=== PATIENT | female | born 1935 | race Caucasian/White ===

== ENCOUNTER 2017-06-16 10:39 | Inpatient (IN) ==
--- NOTE | 2017-06-16 11:10 | Emergency Department Note ---
Disposition Clinical Impression: SBO (small bowel obstruction), Renal insufficiency, mild Leukocytosis Qualifiers: Leukocytosis type: unspecified Qualified Code(s): D72.829 - Elevated white blood cell count, unspecified Disposition: Admitted As Inpatient Condition: Fair General Adult HPI - General Chief complaint: ED Weakness Stated complaint: weakness Time Seen by Provider: 06/16/17 10:42 Source: EMS Nursing Notes Reviewed: Yes Vital Signs Reviewed: Yes - History of Present Illness HPI Narrative: 82-year-old female presents to the emergency department as a bounce back from the emergency department yesterday. She received a full workup yesterday included a CT scan of the abdomen and pelvis which did not reveal any acute abnormality. The patient was discharged home yesterday. Patient states she came back because she started developing new symptoms of weakness. Patient states that she was unable to even get out of the bed today. She reports some lightheadedness. She had an episode of nausea. Patient states that she still has abdominal pain across her abdomen, but this has resolved some. Pain Scale: 0 - Related Data Home Medications Medication Instructions Recorded Confirmed Albuterol Sulfate [Albuterol 2 puff PO Q4H PRN 03/10/15 06/16/17 Inhaler] Atorvastatin Calcium [Lipitor] 20 mg PO HS 07/12/16 06/16/17 Calcium Carbonate/Vitamin D3 1 each PO BID 07/12/16 06/16/17 [Calcium 500 + Vit D Caplet] Levothyroxine Sodium [Levoxyl] 150 mcg PO DAILY 06/16/17 06/16/17 Losartan Potassium [Cozaar] 50 mg PO DAILY 06/16/17 06/16/17 Previous Rx's Medication Instructions Recorded Diltiazem CD (24hr) [Cardizem CD] 360 mg PO DAILY cap.er.24h 04/11/15 Omeprazole [PriLOSEC] 40 mg PO DAILY #30 capsule. 04/11/15 Rivaroxaban [Xarelto] 20 mg PO DAILY #30 tablet 04/11/15 Sucralfate [Carafate] 1 gm PO QIDAC udc 07/12/15 Docusate [Colace] 100 mg PO BID PRN #30 capsule 11/21/15 Potassium Chloride 20 meq PO BID tab.er.prt 11/21/15 Metoprolol [Lopressor] 100 mg PO BID tablet 07/23/16 Allergies Allergy/AdvReac Type Severity Reaction Status Date / Time hydrochlorothiazide Allergy Rash Verified 06/16/17 10:47 All systems ED: reviewed and negative except as stated. Review of Systems: As Per HPI Constitutional: Denies: fever Cardiovascular: Denies: chest pain Gastrointestinal: Reports: abdominal pain, nausea Genitourinary: Denies: urgency, dysuria, frequency Musculoskeletal: Denies: back pain Integumentary: Denies: rash Neurological: Reports: weakness Past Medical History - Past Medical History Medical history: Reports: arthritis, atrial fibrillation, COPD, hyperlipidemia, hypertension, renal disease, thyroid disease, other Surgical history: Reports: knee replacement Psychiatric history: Reports: no psych history C[employer] DESSERT history: Reports: no C[employer] DESSERT history - Social History Smoking Status: Former smoker Smokeless Tobacco Status: No Alcohol use: Reports: none Drug use: Reports: none Physical Exam General: 82-year-old female who does not appear to be in any distress. Head: autraumatic, EOMI, no conjuncitval pallor, no scleral icterus, Mouth: oral mucous membranes moist Neck: neck soft, trachea midline Chest:: Equal chest wall rise Lungs: Normal lungs sounds bilaterally, no wheezes, no respiratory distress Heart: normal heart sounds, normal rate and rhythm, Abdomen: soft, mild tenderness to palpation of the epigastrium, no rigidity, no guarding, no rebdound tenderness Lower Extremities: no pedal edema, calves non-tender Integumentary: Skin warm, dry, and intact Neuro: Alert and oriented to person, time, place. No focal neurologic deficits. Psych: normal affect, normal mood - General General appearance: alert Course Vital Signs Temperature 99.0 F 06/16/17 10:42 Pulse Rate 62 06/16/17 10:42 Respiratory Rate 16 06/16/17 10:42 Blood Pressure 133/71 06/16/17 10:42 O2 Sat by Pulse Oximetry 98 06/16/17 10:42 Temperature 99.0 F 06/16/17 10:42 Pulse Rate 62 06/16/17 10:42 Respiratory Rate 16 06/16/17 14:12 Blood Pressure 146/70 06/16/17 14:12 O2 Sat by Pulse Oximetry 98 06/16/17 10:42 Oxygen Delivery Oxygen Delivery Room Air Medical Decision Making - MDM Narrative Medical decision making narrative: 82-year-old female with a history of duodenal perforation with persistent abdominal pain presents to the emergency department after a negative workup yesterday. CBC was obtained and revealed a new leukocytosis of 19.2. He was also evidence of acute renal insufficiency as patient's creatinine was 1.45 here and this is slightly worse than it has been in the past. This prompted us obtaining a CT scan of the abdomen and pelvis as we wanted to be certain that there was not an intra-abdominal pathology as we cannot discern a reason for this patient's new leukocytosis and persistent abdominal pain. CT scan of abdomen and pelvis revealed a dilated loop of small bowel in the epigastrium with suspected wall thickening and does appear to be at the site of a small bowel anastomosis. There is recommendation to consider small bowel follow- through to better characterize anastomosis in any degree of obstruction. At this time, I have discussed this case with Dr. Fulton, the general surgeon. She stated that she would see the patient. I admitted this patient to the hospitalist. He agreed to accept the admission. An NG tube was placed and the patient's diagnosis was discussed as well as the plan for admission. Patient agreed with the plan. Patient was given fluids here in the emergency Department as well as Zofran and she is complaining of nausea. Patient declined analgesia here as she stated that her pain was not bad enough. Abdomen/Pelvis CT 06/16/17 12:18 IMPRESSION: There is a dilated loop of small bowel in the epigastrium with suspected wall thickening. This appears to be at the site of a small bowel anastomosis. This may indicate the presence of chronic partial obstruction, as there was a dilated loop of bowel in this area on the prior study although not as prominent. Consider small-bowel follow-through 2 better characterize the anastomosis and any degree of obstruction Colonic diverticulosis D/ / Joaquim Trevino MD / Joaquim Trevino MD Interpreting Provider: Joaquim Trevino MD Chest X-Ray 06/16/17 12:27 IMPRESSION: No evidence of pneumonia. D/ / Hakeem Hsu MD / Hakeem Hsu MD Interpreting Provider: Hakeem Hsu MD Vital Signs Temperature 99.0 F 06/16/17 10:42 Pulse Rate 62 06/16/17 10:42 Respiratory Rate 16 06/16/17 10:42 Blood Pressure 133/71 06/16/17 10:42 O2 Sat by Pulse Oximetry 98 06/16/17 10:42 Temperature 99.0 F 06/16/17 10:42 Pulse Rate 62 06/16/17 10:42 Respiratory Rate 16 06/16/17 14:12 Blood Pressure 146/70 06/16/17 14:12 O2 Sat by Pulse Oximetry 98 06/16/17 10:42 Oxygen Delivery Oxygen Delivery Room Air - Medical Records Medical records reviewed: Yes I reviewed the patient's medical records. - Lab Data Lab results reviewed: Yes I reviewed the patient's lab results. Result diagrams: 06/16/17 11:16 06/16/17 11:16 Lab Results 06/16/17 06/16/17 06/16/17 Range/Units 11:16 11:16 11:16 WBC 19.2 H D (4.3-11.1) K/mcL RBC 3.86 (3.82-4.97) M/mcL Hgb 11.3 L (11.5-15.4) g/dL Hct 34.3 L (35.3-44.9) % MCV 88.9 (83.0-100.0) fL MCH 29.3 (28.0-33.3) pg MCHC 32.9 (31.6-35.5) g/dL RDW 15.6 H (11.5-14.5) % Plt Count 261 (140-400) K/mcL MPV 12.0 (9.4-12.4) fL Immature Gran % 0.6 (0-4) % Seg Neutrophils % 86.7 % Lymphocytes % 5.4 % Monocytes % 7.2 % Eosinophils % 0.0 % Basophils % 0.1 % Neutrophils # 16.7 H (1.6-8.9) K/mcL Lymphocytes # 1.0 (0.6-4.6) K/mcL Monocytes # 1.4 H (0.0-1.3) K/mcL Eosinophils # 0.0 (0.0-0.6) K/mcL Basophils # 0.0 (0.0-0.2) K/mcL Immature Plt Fraction 7.6 H (1.1-6.1) % Sodium 137 (136-145) mEq/L Potassium 4.4 (3.5-4.5) mEq/L Chloride 102 (98-109) mEq/L Carbon Dioxide 26 (19-29) mEq/L BUN 31 H (7-20) mg/dL Creatinine 1.45 H (0.57-1.11) mg/dL Est GFR ( Amer) 42 L (> 60) Est GFR (Non-Af Amer) 35 L (> 60) BUN/Creatinine Ratio 21 (6-26) Glucose 131 H (70-99) mg/dL Calculated Osmolality 292 (280-300) Lactic Acid 2.7 H (0.5-2.2) mmol/L Calcium 9.4 (8.6-10.8) mg/dL Total Bilirubin 1.0 D (0.2-1.2) mg/dL AST 14 (5-34) Units/L ALT < 6 (0-55) Units/L Alkaline Phosphatase 90 (38-126) Units/L Troponin I (0-0.03) ng/mL Serum Total Protein 5.8 L (6.0-8.3) g/dL Albumin 3.0 L (3.5-5.0) g/dL Globulin 2.8 (2.4-3.5) g/dL Albumin/Globulin Ratio 1.1 (1.1-2.2) Urine Color (Yellow) Urine Clarity (Clear) Urine pH (5.0-8.0) pH Units Ur Specific [place] (1.010-1.025) Urine Protein (Neg-Trace) mg/dL Urine Glucose (UA) (Normal) mg/dL Urine Ketones (Negative) mg/dL Urine Blood (Negative) Urine Nitrite (Negative) Urine Bilirubin (Negative) Urine Urobilinogen (Normal) mg/dL Ur Leukocyte Esterase (Negative) Urine Microscopic RBC (0-3) per hpf Urine Microscopic WBC (0-3) per hpf Ur Squamous Epith Cells (None-Few) per lpf Urine Bacteria (None-Few) per hpf Hyaline Casts (None-Few) per lpf Ur Culture Indicated? (NO) 06/16/17 06/16/17 Range/Units 11:16 11:40 WBC (4.3-11.1) K/mcL RBC (3.82-4.97) M/mcL Hgb (11.5-15.4) g/dL Hct (35.3-44.9) % MCV (83.0-100.0) fL MCH (28.0-33.3) pg MCHC (31.6-35.5) g/dL RDW (11.5-14.5) % Plt Count (140-400) K/mcL MPV (9.4-12.4) fL Immature Gran % (0-4) % Seg Neutrophils % % Lymphocytes % % Monocytes % % Eosinophils % % Basophils % % Neutrophils # (1.6-8.9) K/mcL Lymphocytes # (0.6-4.6) K/mcL Monocytes # (0.0-1.3) K/mcL Eosinophils # (0.0-0.6) K/mcL Basophils # (0.0-0.2) K/mcL Immature Plt Fraction (1.1-6.1) % Sodium (136-145) mEq/L Potassium (3.5-4.5) mEq/L Chloride (98-109) mEq/L Carbon Dioxide (19-29) mEq/L BUN (7-20) mg/dL Creatinine (0.57-1.11) mg/dL Est GFR ( Amer) (> 60) Est GFR (Non-Af Amer) (> 60) BUN/Creatinine Ratio (6-26) Glucose (70-99) mg/dL Calculated Osmolality (280-300) Lactic Acid (0.5-2.2) mmol/L Calcium (8.6-10.8) mg/dL Total Bilirubin (0.2-1.2) mg/dL AST (5-34) Units/L ALT (0-55) Units/L Alkaline Phosphatase (38-126) Units/L Troponin I 0.03 (0-0.03) ng/mL Serum Total Protein (6.0-8.3) g/dL Albumin (3.5-5.0) g/dL Globulin (2.4-3.5) g/dL Albumin/Globulin Ratio (1.1-2.2) Urine Color Yellow (Yellow) Urine Clarity Clear (Clear) Urine pH 6.5 (5.0-8.0) pH Units Ur Specific [place] 1.023 (1.010-1.025) Urine Protein Trace (Neg-Trace) mg/dL Urine Glucose (UA) Normal (Normal) mg/dL Urine Ketones Negative (Negative) mg/dL Urine Blood Negative (Negative) Urine Nitrite Negative (Negative) Urine Bilirubin Negative (Negative) Urine Urobilinogen Normal (Normal) mg/dL Ur Leukocyte Esterase Trace H (Negative) Urine Microscopic RBC 5-15 H (0-3) per hpf Urine Microscopic WBC 3-5 H (0-3) per hpf Ur Squamous Epith Cells Many H (None-Few) per lpf Urine Bacteria None Seen (None-Few) per hpf Hyaline Casts None Seen (None-Few) per lpf Ur Culture Indicated? YES A (NO) - Radiology Data Radiology results reviewed: Yes I reviewed the patient's radiology results. - EKG Data EKG #1 EKG attestation: Yes I reviewed and interpreted this EKG. EKG results narrative: 11:17 Ventricular rate 70 beats per minute, IL interval 159 ms, QRS duration 94 segs, QT 396% segs, QTC 470 ms, normal axis. Sinus rhythm with a ventricular rate of 70 beats per minute. There is no evidence of any ischemic ST changes noted on this electrocardiogram. This electrocardiogram was compared to one performed on June 15, 2017.
--- NOTE | 2017-06-16 11:24 | Emergency Department Note ---
START Narrative - START START: I examined this patient and my medical decision-making was reviewed with the MASTIC SPRAYER/PA/Advanced Practice Nurse/Resident Physician. I agree with the documented findings, disposition and treatment plan as described except to the extent set forth below. ED attending: Patient's emergency medicine resident Dr. Master Juarez. Please see copy of this note for H&P evaluation and management and ED disposition. We both had independent [id number] time in contact with this patient. Briefly: A 2-year-old female by EMS for "weakness". Patient was worked up last night in the ED emergency department and discharged home with URI viral likely. Patient is normally ambulatory said "too weak to get out of bed this morning". Patient is awake and alert fatigued but not somnolent. I said her abdominal pain is actually improved. Skull low-grade fever of 99. Vital signs are essentially within normal limits. Patient will get IV rehydration screening labs and disposition. Disposition pending
[2017-06-16 11:26] LABS: Basophils % 0.1 %; Hematocrit 34.3 % (35.3-44.9); Hemoglobin 11.3 g/dL (11.5-15.4); Immature Granulocytes % 0.6 % (0-4); Immature Platelets 7.6 % (1.1-6.1); Lymphocytes % 5.4 %; Mean Corpuscular HGB Conc 32.9 g/dL (31.6-35.5); Mean Corpuscular Hemoglobin 29.3 pg (28.0-33.3); Mean Corpuscular Volume 88.9 fL (83.0-100.0); Monocytes # 1.4 K/mcL (0.0-1.3); Monocytes % 7.2 %; Platelet Count 261 K/mcL (140-400); Red Blood Count 3.86 M/mcL (3.82-4.97); Red Cell Distribution Width 15.6 % (11.5-14.5); Segmented Neutrophils % 86.7 %
[2017-06-16 11:27] LABS: Neutrophils # 16.7 K/mcL (1.6-8.9)
[2017-06-16 11:40] LABS: Albumin/Globulin Ratio 1.1 (1.1-2.2); Alkaline Phosphatase 90 Units/L (38-126); Aspartate Amino Transferase 14 Units/L (5-34); BUN/Creatinine Ratio 21 (6-26); Blood Urea Nitrogen 31 mg/dL (7-20); Calcium 9.4 mg/dL (8.6-10.8); Carbon Dioxide 26 mEq/L (19-29); Chloride 102 mEq/L (98-109); Globulin 2.8 g/dL (2.4-3.5); Glucose 131 mg/dL (70-99); Osmolality,Calculated 292 (280-300); Potassium 4.4 mEq/L (3.5-4.5); Sodium 137 mEq/L (136-145); Total Protein 5.8 g/dL (6.0-8.3); eGFR For African Americans 42 (> 60); eGFR For Non-African Americans 35 (> 60)
[2017-06-16 11:41] LABS: Alanine Aminotransferase < 6 Units/L (0-55)
[2017-06-16 11:51] LABS: Bilirubin,Urine Negative (Negative); Blood,Urine Negative (Negative); Clarity,Urine Clear (Clear); Color,Urine Yellow (Yellow); Glucose,Urine (UA) Normal (Normal); Ketones,Urine Negative (Negative); Leukocyte Esterase,Urine Trace (Negative); Nitrite,Urine Negative (Negative); PH,Urine 6.5 pH Units (5.0-8.0); Protein,Urine Trace mg/dL (Neg-Trace); Specific Gravity,Urine 1.023 (1.010-1.025); Urobilinogen,Urine Normal (Normal)
[2017-06-16 11:53] LABS: Bacteria,Urine None Seen per hpf (None-Few); Hyaline Casts,Urine None Seen per lpf (None-Few); Squamous Epithelial Cell,Urine Many per lpf (None-Few)
[2017-06-16] MEDS ORDERED: 0.9 % Sodium Chloride 1,000 ML IVC ONE (12:18)
[2017-06-16] MEDS ORDERED: Ondansetron 4 MG/2 ML VIAL IVP ONE (12:19)
[2017-06-16] MEDS ORDERED: *HR* Morphine 2 MG/ML SYRINGE IVP PRN (15:34)
[2017-06-16] MEDS ORDERED: Naloxone 0.4 MG/ML INJ IVP PRN (15:34)
[2017-06-16] MEDS ORDERED: Ondansetron 4 MG/2 ML VIAL IVP PRN (15:34)
--- NOTE | 2017-06-16 16:15 | General Surgery Consult Note ---
<Karishma Subramanian - Last Filed: 06/16/17 16:11> Date of Encounter: 06/16/17 Time of Encounter: 16:10 Assessment and Plan (1) Partial small bowel obstruction Current Visit: Yes Status: Acute Continue with conservative management at this time including: Bowel rest NG tube to low intermittent wall suction IV fluids Serial abdominal exams Supportive care and pain control Incentives from every 1 hour while awake We will continue to follow and assess progress Holds Xarelto for now No urgent/emergent surgical intervention indicated at this time Repeat a.m. labs (2) COPD (chronic obstructive pulmonary disease) Current Visit: No Status: Chronic No acute exacerbation noted Incentive spirometer every 1 hour while awake Management per medicine service Qualifiers: COPD type: unspecified COPD Qualified Code(s): J44.9 - Chronic obstructive pulmonary disease, unspecified (3) Atrial fibrillation Current Visit: No Status: Chronic Rate is controlled at this time Holds Xarelto at this time in case the patient would need surgical intervention Qualifiers: Atrial fibrillation type: chronic Qualified Code(s): I48.2 - Chronic atrial fibrillation (4) Acute kidney injury Current Visit: No Status: Acute Cr- 1.3>1.45 IV fluids Avoid nephrotoxic medications Management per medicine service (5) Hypothyroid Current Visit: No Status: Chronic May transition to IV levothyroxine while patient nothing by mouth Management per medicine service Qualifiers: Hypothyroidism type: acquired Qualified Code(s): E03.9 - Hypothyroidism, unspecified (6) Physical deconditioning Current Visit: No Status: Acute Consider PT and OT consults in the next 24 hours (8) DVT prophylaxis Current Visit: No Status: Acute INR is 2.8 Hold Xarelto for now History of Present Illness Consult date: 06/16/17 Reason for consult: other (PSBO) Requesting physician: Master Mathew History of present illness: Ms. Ernandez is a very pleasant 82-year-old female who presented to the hospital with complaints of abdominal discomfort. She states that she initially presented to the emergency department yesterday with complaints of severe abdominal pain. She states that this pain started at 2 PM yesterday and was constant. She just gripes it as a sharp and stabbing pain. She received a workup in the emergency department was did not reveal any acute processes and she was subsequent discharged to home. She reported back to the emergency department today with continued discomfort across the lower abdomen. She states that the pain is better today. She reports that the main reason she recommended came back to the emergency department was due to weakness and inability to get out of bed this morning. She does report nausea and vomiting yesterday but denies any nausea or vomiting today. Denies any hematemesis or coffee-ground emesis She denies any fevers or chills. She admits to minimal bloating which has improved. She denies passing any flatus since yesterday at 4 PM. Her last bowel movement was at 4 PM yesterday. She denies any melena or hematochezia. She typically has a bowel movement 2-3 times per day. She denies any recent diarrhea or constipation. She denies any difficulty with urination. She denies any shortness of breath or chest pain. She had had a CAT scan evaluation which shows concerns for a partial small bowel obstruction. We have been asked to see and evaluate the patient for recommendations. Past Med Surg Social Fam HX - Past Medical History Source: patient, old records reviewed Medical history: arthritis, atrial fibrillation, COPD, hyperlipidemia, hypertension, renal disease, thyroid disease, other (Venous insufficiency, osteoarthritis, osteoporosis, history of SMA stenosis, history of perforated duodenal ulcer, obesity) Psychiatric history: no psych history - Past Surgical History Surgical History: knee replacement (Bilateral), other (Status post exploratory laparotomy with small bowel resection and appendectomy) - Social History Smoking Status: Former smoker Smokeless Tobacco Status: No Alcohol use: none Drug use: none Occupational status: disabled Current living situation: With Family - Family History Father History Unknown: Yes Adopted: No Family Member Ethnicity: Non- Living Status: Cause of : emphysema Hx Family Cardiac Disorders: No Hx Family Respiratory Disorders: Yes (emphysema) Hx Family Cancer: No Hx Family GI Disorders: No Hx Family Endocrine Disorder: No Hx Family Neuromuscular Disorders: No Hx Family Neurologic Disorders: No Hx Family HEENT Disorders: No Hx Family Autoimmune Disorders: No Mother History Unknown: Yes Adopted: No Living Status: Hx Family Cardiac Disorders: Yes Hx Family Reproductive Disorders: Yes (rheumatoid arthritis) Medications and Allergies Albuterol Sulfate [Albuterol Inhaler] 2 puff PO Q4H PRN 03/10/15 [History] Diltiazem CD (24hr) [Cardizem CD] 360 mg PO DAILY cap.er.24h 04/11/15 [Rx] Omeprazole [PriLOSEC] 40 mg PO DAILY #30 capsule. 04/11/15 [Rx] Rivaroxaban [Xarelto] 20 mg PO DAILY #30 tablet 04/11/15 [Rx] Sucralfate [Carafate] 1 gm PO QIDAC udc 07/12/15 [Rx] Docusate [Colace] 100 mg PO BID PRN #30 capsule 11/21/15 [Rx] Potassium Chloride 20 meq PO BID tab.er.prt 11/21/15 [Rx] Atorvastatin Calcium [Lipitor] 20 mg PO HS 07/12/16 [History] Calcium Carbonate/Vitamin D3 [Calcium 500 + Vit D Caplet] 1 each PO BID [History] Metoprolol [Lopressor] 100 mg PO BID tablet 07/23/16 [Rx] Levothyroxine Sodium [Levoxyl] 150 mcg PO DAILY 06/16/17 [History] Losartan Potassium [Cozaar] 50 mg PO DAILY 06/16/17 [History] 3 Allergy/AdvReac Type Severity Reaction Status Date / Time hydrochlorothiazide Allergy Rash Verified 06/16/17 10:47 Review of Systems All systems PM: reviewed and no additional remarkable complaints except as stated (in the HPI) All systems PM: A 10-system review of systems was performed and is negative for pertinent findings except as documented above in the HPI. General Surgery Exam Initial Vital Signs Temp Pulse Resp BP Pulse Ox 99.0 F 62 16 133/71 98 06/16/17 10:42 06/16/17 10:42 06/16/17 10:42 06/16/17 10:42 06/16/17 10:42 - General physical appearance well developed, well nourished, no distress, no pain, chronically ill, obese - Eyes normal ocular movement - ENT normal mucosa, atraumatic, normocephalic - Neck trachea midline - Respiratory normal respiratory effort wheezing: bilateral (expiratory) - Cardiovascular Cardiovascular exam: Present: RRR, 15, 16 - Abdomen Abdomen general surgery: Present: bowel sounds present, soft, tender, wound (NG tube clamped at this time (place to LIWS)) Abdominal Tenderness: Present: suprapubic Hernia: Present: incarcerated, incisional - Integumentary Integumentary general surgery: Present: warm and dry - Neurologic Present: CN 2-12 grossly intact - Musculoskeletal Present: other (moderate deconditioining) - Psychiatric Psychiatric general surgery: Present: A&Ox3 Exam Initial Vital Signs Temp Pulse Resp BP Pulse Ox 99.0 F 62 16 133/71 98 06/16/17 10:42 06/16/17 10:42 06/16/17 10:42 06/16/17 10:42 06/16/17 10:42 Results - Labs 06/16/17 11:16 06/16/17 11:16 Abnormal lab results WBC 19.2 K/mcL (4.3-11.1) H D 06/16/17 11:16 Hgb 11.3 g/dL (11.5-15.4) L 06/16/17 11:16 Hct 34.3 % (35.3-44.9) L 06/16/17 11:16 RDW 15.6 % (11.5-14.5) H 06/16/17 11:16 Neutrophils # 16.7 K/mcL (1.6-8.9) H 06/16/17 11:16 Monocytes # 1.4 K/mcL (0.0-1.3) H 06/16/17 11:16 Immature Plt Fraction 7.6 % (1.1-6.1) H 06/16/17 11:16 BUN 31 mg/dL (7-20) H 06/16/17 11:16 Creatinine 1.45 mg/dL (0.57-1.11) H 06/16/17 11:16 Est GFR ( Amer) 42 (> 60) L 06/16/17 11:16 Est GFR (Non-Af Amer) 35 (> 60) L 06/16/17 11:16 Glucose 131 mg/dL (70-99) H 06/16/17 11:16 Lactic Acid 2.7 mmol/L (0.5-2.2) H 06/16/17 11:16 Serum Total Protein 5.8 g/dL (6.0-8.3) L 06/16/17 11:16 Albumin 3.0 g/dL (3.5-5.0) L 06/16/17 11:16 Ur Leukocyte Esterase Trace (Negative) H 06/16/17 11:40 Urine Microscopic RBC 5-15 per hpf (0-3) H 06/16/17 11:40 Urine Microscopic WBC 3-5 per hpf (0-3) H 06/16/17 11:40 Ur Squamous Epith Cells Many per lpf (None-Few) H 06/16/17 11:40 Ur Culture Indicated? YES (NO) A 06/16/17 11:40 All other labs normal. - Imaging CT scan - abdomen: report reviewed CT scan - pelvis: report reviewed Additional studies: Abdomen/Pelvis CT 06/16/17 12:18 IMPRESSION: There is a dilated loop of small bowel in the epigastrium with suspected wall thickening. This appears to be at the site of a small bowel anastomosis. This may indicate the presence of chronic partial obstruction, as there was a dilated loop of bowel in this area on the prior study although not as prominent. Consider small-bowel follow-through 2 better characterize the anastomosis and any degree of obstruction Colonic diverticulosis D/ / Joaquim Trevino MD / Joaquim Trevino MD Interpreting Provider: Joaquim Trevino MD Chest X-Ray 06/16/17 12:27 IMPRESSION: No evidence of pneumonia. D/ / Hakeem Hsu MD / Hakeem Hsu MD Interpreting Provider: Hakeem Hsu MD Consult Discharge Plan - Plan Referrals: Holley Alexander DO [Primary Care Provider] - - Attending Attestation For this encounter, I have reviewed the NURSE NAVIGATOR or PA documentation, treatment plan, and medical decision making; and I have had face to face time with this patient. <Jennifer Olivo - Last Filed: 06/17/17 11:49> Date of Encounter: 06/16/17 Assessment and Plan (1) Small bowel obstruction due to postoperative adhesions Current Visit: Yes Status: Acute patient appears to have sbo due to surgical adhesions potentially at surgical anastomosis. CT scan is difficult to interpret continue conservative measures currently npo, ngt to LIWS prn pain control hope to resolve sbo conservatively and once passing flatus can obtain SBFT with gastrograffin to better evaluate small bowel and area of concern at anastomosis serial abodominal exams OOB to chair BID (2) Leukocytosis Current Visit: Yes Status: Acute Qualifiers: Leukocytosis type: unspecified Qualified Code(s): D72.829 - Elevated white blood cell count, unspecified (3) Abdominal pain Current Visit: No Status: Acute Qualifiers: Abdominal location: generalized Qualified Code(s): R10.84 - Generalized abdominal pain (4) DVT prophylaxis Current Visit: No Status: Acute Past Med Surg Social Fam HX - Past Surgical History Surgical History: other Review of Systems All systems PM: reviewed and no additional remarkable complaints except as stated All systems PM: A 10-system review of systems was performed and is negative for pertinent findings except as documented above in the HPI. General Surgery Exam Initial Vital Signs Temp Pulse Resp BP Pulse Ox 99.0 F 62 16 133/71 98 06/16/17 10:42 06/16/17 10:42 06/16/17 10:42 06/16/17 10:42 06/16/17 10:42 - General physical appearance well developed, well nourished, no distress, obese - Eyes PERRL, normal ocular movement - ENT normal mucosa, normocephalic - Neck trachea midline - Respiratory normal expansion, clear to auscultation - Cardiovascular Cardiovascular exam: Present: RRR - Abdomen Abdomen general surgery: Present: bowel sounds present, soft, tender Hernia: Present: incisional - Integumentary Integumentary general surgery: Present: warm and dry - Neurologic Present: CN 2-12 grossly intact - Musculoskeletal Present: other - Psychiatric Psychiatric general surgery: Present: A&Ox3 Exam Initial Vital Signs Temp Pulse Resp BP Pulse Ox 99.0 F 62 16 133/71 98 06/16/17 10:42 06/16/17 10:42 06/16/17 10:42 06/16/17 10:42 06/16/17 10:42 Results - Labs 06/17/17 04:57 06/17/17 04:57 Abnormal lab results WBC 16.2 K/mcL (4.3-11.1) H 06/17/17 04:57 RBC 3.41 M/mcL (3.82-4.97) L 06/17/17 04:57 Hgb 9.9 g/dL (11.5-15.4) L 06/17/17 04:57 Hct 30.8 % (35.3-44.9) L 06/17/17 04:57 RDW 15.9 % (11.5-14.5) H 06/17/17 04:57 Neutrophils # 12.8 K/mcL (1.6-8.9) H 06/17/17 04:57 Immature Plt Fraction 7.6 % (1.1-6.1) H 06/16/17 11:16 PT 16.5 Seconds (9.4-12.1) H 06/17/17 04:57 BUN 32 mg/dL (7-20) H 06/17/17 04:57 Est GFR (Non-Af Amer) 50 (> 60) L 06/17/17 04:57 BUN/Creatinine Ratio 30 (6-26) H 06/17/17 04:57 Lactic Acid 2.7 mmol/L (0.5-2.2) H 06/16/17 11:16 Calcium 8.4 mg/dL (8.6-10.8) L 06/17/17 04:57 Serum Total Protein 5.8 g/dL (6.0-8.3) L 06/16/17 11:16 Albumin 3.0 g/dL (3.5-5.0) L 06/16/17 11:16 Ur Leukocyte Esterase Trace (Negative) H 06/16/17 11:40 Urine Microscopic RBC 5-15 per hpf (0-3) H 06/16/17 11:40 Urine Microscopic WBC 3-5 per hpf (0-3) H 06/16/17 11:40 Ur Squamous Epith Cells Many per lpf (None-Few) H 06/16/17 11:40 Ur Culture Indicated? YES (NO) A 06/16/17 11:40 Diabetes panel 06/17/17 Range/Units 04:57 Sodium 139 (136-145) mEq/L Potassium 4.0 (3.5-4.5) mEq/L Chloride 106 (98-109) mEq/L Carbon Dioxide 26 (19-29) mEq/L BUN 32 H (7-20) mg/dL Creatinine 1.05 (0.57-1.11) mg/dL Glucose 74 (70-99) mg/dL Calcium 8.4 L (8.6-10.8) mg/dL Calcium panel 06/17/17 06/17/17 Range/Units 04:57 04:57 Calcium 8.4 L (8.6-10.8) mg/dL Phosphorus 2.8 (2.3-4.7) mg/dL Pituitary panel 06/17/17 Range/Units 04:57 Sodium 139 (136-145) mEq/L Potassium 4.0 (3.5-4.5) mEq/L Chloride 106 (98-109) mEq/L Carbon Dioxide 26 (19-29) mEq/L BUN 32 H (7-20) mg/dL Creatinine 1.05 (0.57-1.11) mg/dL Glucose 74 (70-99) mg/dL Calcium 8.4 L (8.6-10.8) mg/dL Adrenal panel 06/17/17 Range/Units 04:57 Sodium 139 (136-145) mEq/L Potassium 4.0 (3.5-4.5) mEq/L Chloride 106 (98-109) mEq/L Carbon Dioxide 26 (19-29) mEq/L BUN 32 H (7-20) mg/dL Creatinine 1.05 (0.57-1.11) mg/dL Glucose 74 (70-99) mg/dL Calcium 8.4 L (8.6-10.8) mg/dL All other labs normal. - Imaging CT scan - abdomen: report reviewed, image reviewed CT scan - pelvis: report reviewed, image reviewed - Attending Attestation I have personally performed a face to face evaluation on this patient. I have reviewed and agree with the care plan. History and Exam by me shows:
[2017-06-16] MEDS: 0.9 % Sodium Chloride 1,000 ML IVC SCH (16:39)
--- NOTE | 2017-06-16 18:05 | Internal Med History&Physical ---
Date of Encounter: 06/16/17 Time of Encounter: 17:59 Assessment and Plan (1) Partial small bowel obstruction Current visit: Yes Status: Acute 1 patient has been experiencing diffuse abdominal pain nausea vomiting CT of abdomen indicative of partial small bowel obstruction. surgery has been consulted continue with NPO state NG has been placed we will continue . we will hold Xarelto for possible surgical intervention (2) Hypertension Current visit: No Status: Chronic 1 presently controlled we will continue with losartan Qualifiers: Hypertension type: essential hypertension Qualified Code(s): I10 - Essential (primary) hypertension (3) COPD (chronic obstructive pulmonary disease) Current visit: No Status: Chronic Presently controlled we will continue with bronchodilators as well as oxygen as needed Qualifiers: COPD type: unspecified COPD Qualified Code(s): J44.9 - Chronic obstructive pulmonary disease, unspecified (4) Atrial fibrillation Current visit: No Status: Chronic 1 presently controlled we will continue with cardiac senna as well as beta lina. We will hold Xarelto for now for anticipated surgical procedure. Qualifiers: Atrial fibrillation type: chronic Qualified Code(s): I48.2 - Chronic atrial fibrillation (5) Hypothyroid Current visit: No Status: Chronic 1 continue with Synthroid Qualifiers: Hypothyroidism type: acquired Qualified Code(s): E03.9 - Hypothyroidism, unspecified (6) DVT prophylaxis Current visit: No Status: Acute 1 patient is on Xarelto - SCD Internal Medicine - H&P: HPI Chief complaint: abd pain, weakness Admitted From: Emergency Dept Plans for Post Hospital Care: Home History of present illness: Ms. Ernandez is a 82 year old female past medical history of atrial fibrillation she is on Zarontin and GERD hypothyroid hypertension and COPD she is non-oxygen dependent. According to the patient she presented yesterday to the emergency department after experiencing severe abdominal pain. She states the pain started at approximately 2 PM yesterday and is constant stabbing and sharp. There were no aggravating or relieving factors. She denies any fevers chills, she did have some nausea and vomiting. She denies any hematemesis or coffee- ground emesis. She did have 3 loose stools however no melena or hematochezia. She received a workup in the emergency department including a CT scan of her abdomen and pelvis which did not reveal any acute abnormality she was diagnosed with viral illness. This a.m. patient was unable to get out of bed she was lightheaded and weak as well as experiencing some nausea and abdominal pain. She returned to the ED for evaluation. CAT scan was completed which shows concerns for partial small bowel obstruction. Surgery has been consulted and she has been admitted for further workup and evaluation. Presently the patient does have an NG in place she denies any nausea or abdominal pain at this time she is hemodynamically stable. Denies any chest pain or shortness of breath. Past Med Surg Social Fam HX - Past Medical History Medical history: arthritis, atrial fibrillation, COPD, hyperlipidemia, hypertension, renal disease, thyroid disease, other (Venous insufficiency, osteoarthritis, osteoporosis, history of SMA stenosis, history of perforated duodenal ulcer, obesity) Psychiatric history: no psych history - Past Surgical History Surgical History: knee replacement (Bilateral), other (Status post exploratory laparotomy with small bowel resection and appendectomy) - Social History Smoking Status: Former smoker Smokeless Tobacco Status: No Alcohol use: none Drug use: none - Family History Father History Unknown: Yes Adopted: No Family Member Ethnicity: Non- Living Status: Cause of : emphysema Hx Family Cardiac Disorders: No Hx Family Respiratory Disorders: Yes (emphysema) Hx Family Cancer: No Hx Family GI Disorders: No Hx Family Endocrine Disorder: No Hx Family Neuromuscular Disorders: No Hx Family Neurologic Disorders: No Hx Family HEENT Disorders: No Hx Family Autoimmune Disorders: No Mother History Unknown: Yes Adopted: No Living Status: Hx Family Cardiac Disorders: Yes Hx Family Reproductive Disorders: Yes (rheumatoid arthritis) Internal Medicine - H&P: Meds Albuterol Sulfate [Albuterol Inhaler] 2 puff PO Q4H PRN 03/10/15 [History] Diltiazem CD (24hr) [Cardizem CD] 360 mg PO DAILY cap.er.24h 04/11/15 [Rx] Omeprazole [PriLOSEC] 40 mg PO DAILY #30 capsule. 04/11/15 [Rx] Rivaroxaban [Xarelto] 20 mg PO DAILY #30 tablet 04/11/15 [Rx] Sucralfate [Carafate] 1 gm PO QIDAC udc 07/12/15 [Rx] Docusate [Colace] 100 mg PO BID PRN #30 capsule 11/21/15 [Rx] Potassium Chloride 20 meq PO BID tab.er.prt 11/21/15 [Rx] Atorvastatin Calcium [Lipitor] 20 mg PO HS 07/12/16 [History] Calcium Carbonate/Vitamin D3 [Calcium 500 + Vit D Caplet] 1 each PO BID [History] Metoprolol [Lopressor] 100 mg PO BID tablet 07/23/16 [Rx] Levothyroxine Sodium [Levoxyl] 150 mcg PO DAILY 06/16/17 [History] Losartan Potassium [Cozaar] 50 mg PO DAILY 06/16/17 [History] 3 Allergy/AdvReac Type Severity Reaction Status Date / Time hydrochlorothiazide Allergy Rash Verified 06/16/17 10:47 All Systems PM: A 10-system review of systems was performed and is negative for pertinent findings except as documented above in the HPI. - Constitutional Constitutional: weakness, no chills, no fever(s), no night sweats - EENT Eyes: no change in vision, no discharge, no pain, no photophobia Nose, mouth and throat: no dysphagia, no nasal discharge, no neck pain, no sore throat - Cardiovascular Cardiovascular ROS IM: no chest pain, no diaphoresis, no dyspnea, no lightheadedness, no palpitations, no syncope - Respiratory Respiratory: no cough, no dyspnea, no wheezing, no excessive phlegm production - Gastrointestinal Gastrointestinal: abdominal pain, nausea, vomiting - Genitourinary Genitourinary: no change in urinary stream, no dysuria, no flank pain, no hematuria - Musculoskeletal Musculoskeletal ROS IM: no numbness, no tingling - Integumentary Integumentary IM: no rash, no unusual bruising - Neurological Neurological ROS: no confusion, no convulsions, no focal weakness, no numbness, no tingling, no tremor(s) - Hematologic/Lymphatic Hematologic/Lymphatic: no easy bruising - Constitutional Vitals: Temp Pulse Resp BP Pulse Ox 98 F 92 22 151/74 95 06/16/17 15:16 06/16/17 15:16 06/16/17 15:16 06/16/17 15:16 06/16/17 15:16 General appearance: Present: A&O X 3, answers questions appropriately - Head Head exam: Present: atraumatic, normocephalic - Eye Eye exam: Present: PERRL, conjuntiva pink, sclera anicteric Pupils: Present: PERRL - Neck Neck exam general surgery: Present: supple, trachea midline. Absent: lymphadenopathy - Respiratory Respiratory exam: Present: CTAB. Absent: accessory muscle use, rales, rhonchi, wheezes - Cardiovascular Cardiovascular exam: Present: RRR, +S1, +S2. Absent: diastolic murmur, gallop, rubs, systolic murmur - GI/Abdominal GI/Abdominal exam: Present: normal bowel sounds, soft, tenderness, no peritoneal signs. Absent: distended - Extremities Exam Extremities exam: Present: warm, radial pulses palpable and symmetrical. Absent : calf tenderness, cyanotic, pedal edema - Neurological Exam Neurological exam: Present: CN II-XII intact, oriented X3, no focal deficits. Absent: pronater drift, facial droop, speech deficit - Skin Skin exam: Present: dry, intact Internal Med - H&P Results - Labs CBC & Chem 7: 06/16/17 11:16 06/16/17 11:16 - Diagnostic Studies Other Images Additional comments: Abdomen/Pelvis CT 06/16/17 12:18 IMPRESSION: There is a dilated loop of small bowel in the epigastrium with suspected wall thickening. This appears to be at the site of a small bowel anastomosis. This may indicate the presence of chronic partial obstruction, as there was a dilated loop of bowel in this area on the prior study although not as prominent. Consider small-bowel follow-through 2 better characterize the anastomosis and any degree of obstruction Colonic diverticulosis D/ / Joaquim Trevino MD / Joaquim Trevino MD Interpreting Provider: Joaquim Trevino MD Chest X-Ray 06/16/17 12:27 IMPRESSION: No evidence of pneumonia. D/ / Hakeem Hsu MD / Hakeem Hsu MD Interpreting Provider: Hakeem Hsu MD
--- NOTE | 2017-06-16 18:31 | Electrocardiograph Report ---
[address] [address] Test Date: 2017-06-16 Pat Name: Angie Ernandez Department: 102 Room: 3A44 Gender: F Inspecting And Testing Lead Hand: Callum : [phone] Requested By: Heron Carballo Order Number: [id number] Reading MD: Karishma Rowe Measurements Intervals [place] Rate: 70 P: 61 MN: 159 QRS: 49 QRSD: 94 T: 41 QT: 396 QTc: 417 Interpretive Statements SINUS RHYTHM Electronically Signed On 06-16-2017 18:29:35 EST by Karishma Rowe
[2017-06-16] MEDS: Metoprolol 100 MG TABLET PO SCH (21:34)
[2017-06-17] MEDS: 0.9 % Sodium Chloride 1,000 ML IVC SCH ×2 (03:11→15:21)
[2017-06-17 05:35] LABS: Basophils % 0.1 %; Hematocrit 30.8 % (35.3-44.9); Hemoglobin 9.9 g/dL (11.5-15.4); Immature Granulocytes % 0.5 % (0-4); Lymphocytes # 2.2 K/mcL (0.6-4.6); Lymphocytes % 13.7 %; Mean Corpuscular HGB Conc 32.1 g/dL (31.6-35.5); Mean Corpuscular Volume 90.3 fL (83.0-100.0); Mean Platelet Volume 12.4 fL (9.4-12.4); Monocytes # 1.2 K/mcL (0.0-1.3); Monocytes % 7.1 %; Neutrophils # 12.8 K/mcL (1.6-8.9); Platelet Count 215 K/mcL (140-400); Red Blood Count 3.41 M/mcL (3.82-4.97); Red Cell Distribution Width 15.9 % (11.5-14.5); Segmented Neutrophils % 78.6 %
[2017-06-17 05:37] LABS: INR 1.5; Prothrombin Time 16.5 Seconds (9.4-12.1)
[2017-06-17 05:45] LABS: BUN/Creatinine Ratio 30 (6-26); Blood Urea Nitrogen 32 mg/dL (7-20); Calcium 8.4 mg/dL (8.6-10.8); Carbon Dioxide 26 mEq/L (19-29); Chloride 106 mEq/L (98-109); Glucose 74 mg/dL (70-99); Magnesium 2.1 mg/dL (1.6-2.6); Osmolality,Calculated 294 (280-300); Sodium 139 mEq/L (136-145); eGFR For African Americans > 60 (> 60); eGFR For Non-African Americans 50 (> 60)
[2017-06-17] MEDS: Metoprolol 100 MG TABLET PO SCH ×2 (08:29→21:57)
[2017-06-17] MEDS: Diltiazem CD (24hr) 180 MG CAPSULE PO SCH (08:29)
[2017-06-17] MEDS ORDERED: *HR* Rivaroxaban 10 MG TABLET PO SCH (09:00)
--- NOTE | 2017-06-17 09:33 | General Surgery Progress Note ---
<Karishma Subramanian Roxana - Last Filed: 06/17/17 09:28> Date of Encounter: 06/17/17 Time of Encounter: 08:45 - Assessment and Plan (1) Partial small bowel obstruction Current Visit: Yes Status: Acute Continue with conservative management at this time including: Bowel rest Recommend holding PO meds NG tube to low intermittent wall suction IV fluids- 100ml/hour Serial abdominal exams Consider SBFT with gastrograffin in the next 24-48 hours Supportive care and pain control Incentives from every 1 hour while awake We will continue to follow and assess progress Holds Xarelto for now No urgent/emergent surgical intervention indicated at this time Add treatment for UTI with presumptive ecoli- Zosyn added Repeat a.m. labs (2) COPD (chronic obstructive pulmonary disease) Current Visit: No Status: Chronic No acute exacerbation noted Incentive spirometer every 1 hour while awake Management per medicine service Qualifiers: COPD type: unspecified COPD Qualified Code(s): J44.9 - Chronic obstructive pulmonary disease, unspecified (3) Atrial fibrillation Current Visit: No Status: Chronic Rate is controlled at this time Holds Xarelto at this time in case the patient would need surgical intervention Qualifiers: Atrial fibrillation type: chronic Qualified Code(s): I48.2 - Chronic atrial fibrillation (4) Acute kidney injury Current Visit: No Status: Acute Cr- 1.3>1.45>1.05 Improving IV fluids Avoid nephrotoxic medications Management per medicine service (5) Hypothyroid Current Visit: No Status: Chronic May transition to IV levothyroxine while patient nothing by mouth Management per medicine service Qualifiers: Hypothyroidism type: acquired Qualified Code(s): E03.9 - Hypothyroidism, unspecified (6) Physical deconditioning Current Visit: No Status: Acute Consider PT and OT consults in the next 24 hours (7) Urinary tract infection Current Visit: Yes Status: Acute Cultures- presumptive e coli Zosyn added Qualifiers: Urinary tract infection type: site unspecified Hematuria presence: without hematuria Qualified Code(s): N39.0 - Urinary tract infection, site not specified (8) DVT prophylaxis Current Visit: No Status: Acute INR is 1.5 Heparin 5,000 units SQ [id number] Hold Xarelto for now Subjective Patient reports: no new complaints, feels better, still having pain, pain is less, voiding w/o difficulty, no flatus, no bowel movement, afebrile Objective Vital Signs - Last 8 Hours Temp Pulse Resp BP Pulse Ox 06/17/17 07:29 99.3 F 87 15 136/70 95 06/17/17 04:25 18 95 06/17/17 04:02 98.9 F 75 18 126/61 94 Intake and Output 06/16/17 06/17/17 06/17/17 23:59 07:59 15:59 Intake Total 1000 / 1000 Output Total 250 / 250 450 / 450 Balance -250 / -250 550 / 550 Intake: IV Fluids 1000 / 1000 0.9 % Sodium Chloride 1,000 ML 1000 / 1000 @ 100 mls/hr IVC .Q10H [facility] Rx#: [id number] Oral 0 / 0 Output: Urine 250 / 250 0 / 0 Gastric Drainage 450 / 450 Other: Meal npo # Voids 1 Weight 81.647 kg Blood Glucose* 75 Patient Weight 06/17/17 23:59 Weight 81.647 kg - General physical appearance well developed, well nourished, no distress - Eyes normal ocular movement - ENT dry mucosa, atraumatic, normocephalic - Neck Neck exam: trachea midline - Respiratory normal respiratory effort, clear to auscultation - Cardiovascular Cardiovascular exam: Present: RRR - Abdomen Abdomen: Present: soft, tender (minimal, generalized tenderness (improved)), wound (NG tube to LIWS with 450ml total output since placement yesterday) - Neurologic CN 2-12 grossly intact - Psychiatric oriented to time, oriented to person, oriented to place, speech is normal, memory intact - Labs 06/17/17 04:57 06/17/17 04:57 Diabetes panel 06/17/17 Range/Units 04:57 Sodium 139 (136-145) mEq/L Potassium 4.0 (3.5-4.5) mEq/L Chloride 106 (98-109) mEq/L Carbon Dioxide 26 (19-29) mEq/L BUN 32 H (7-20) mg/dL Creatinine 1.05 (0.57-1.11) mg/dL Glucose 74 (70-99) mg/dL Calcium 8.4 L (8.6-10.8) mg/dL Calcium panel 06/17/17 06/17/17 Range/Units 04:57 04:57 Calcium 8.4 L (8.6-10.8) mg/dL Phosphorus 2.8 (2.3-4.7) mg/dL Pituitary panel 06/17/17 Range/Units 04:57 Sodium 139 (136-145) mEq/L Potassium 4.0 (3.5-4.5) mEq/L Chloride 106 (98-109) mEq/L Carbon Dioxide 26 (19-29) mEq/L BUN 32 H (7-20) mg/dL Creatinine 1.05 (0.57-1.11) mg/dL Glucose 74 (70-99) mg/dL Calcium 8.4 L (8.6-10.8) mg/dL Adrenal panel 06/17/17 Range/Units 04:57 Sodium 139 (136-145) mEq/L Potassium 4.0 (3.5-4.5) mEq/L Chloride 106 (98-109) mEq/L Carbon Dioxide 26 (19-29) mEq/L BUN 32 H (7-20) mg/dL Creatinine 1.05 (0.57-1.11) mg/dL Glucose 74 (70-99) mg/dL Calcium 8.4 L (8.6-10.8) mg/dL Consult Discharge Plan - Plan Referrals: Holley Alexander DO [Primary Care Provider] - - Attending Attestation For this encounter, I have reviewed the CRIMINAL INTELLIGENCE ANALYST or PA documentation, treatment plan, and medical decision making; and I have had face to face time with this patient. <Jennifer Olivo - Last Filed: 06/17/17 11:56> Date of Encounter: 06/17/17 - Assessment and Plan (1) Small bowel obstruction due to postoperative adhesions Current Visit: Yes Status: Acute no bowel sounds, not passing flatus continue conservative therapy npo ivf hydration prn pain control ngt LIWS serial abdominal exams plan sbft (gastrograffin) once sbo resolves (2) Leukocytosis Current Visit: Yes Status: Acute decreasing but still elevated, patient does not appear ill awaiting urine culture abdominal exam benign today Qualifiers: Leukocytosis type: unspecified Qualified Code(s): D72.829 - Elevated white blood cell count, unspecified (3) Abdominal pain Current Visit: No Status: Acute Qualifiers: Abdominal location: generalized Qualified Code(s): R10.84 - Generalized abdominal pain (4) DVT prophylaxis Current Visit: No Status: Acute Subjective Patient reports: no new complaints, feels better, still having pain, pain is less, voiding w/o difficulty, no flatus, no bowel movement, afebrile Objective Vital Signs - Last 8 Hours Temp Pulse Resp BP Pulse Ox 06/17/17 10:08 99.6 F 85 15 145/76 95 06/17/17 07:29 99.3 F 87 15 136/70 95 06/17/17 04:25 18 95 06/17/17 04:02 98.9 F 75 18 126/61 94 Intake and Output 06/16/17 06/17/17 06/17/17 23:59 07:59 15:59 Intake Total 1000 / 1000 0 / 0 Output Total 250 / 250 450 / 450 400 / 400 Balance -250 / -250 550 / 550 -400 / -400 Intake: IV Fluids 1000 / 1000 0.9 % Sodium Chloride 1,000 ML 1000 / 1000 @ 100 mls/hr IVC .Q10H [facility] Rx#: [id number] Oral 0 / 0 0 / 0 Output: Urine 250 / 250 0 / 0 400 / 400 Gastric Drainage 450 / 450 Other: Meal npo # Voids 1 Weight 81.647 kg Blood Glucose* 75 58 Patient Weight 06/17/17 23:59 Weight 81.647 kg - General physical appearance well developed, well nourished, no distress, obese - Eyes PERRL, normal ocular movement - ENT normal mucosa, normocephalic - Neck Neck exam: trachea midline - Respiratory normal expansion, clear to auscultation - Cardiovascular Cardiovascular exam: Present: RRR - Abdomen Abdomen: Present: soft, tender. Absent: bowel sounds present - Integumentary no rash, no growths - Neurologic CN 2-12 grossly intact - Musculoskeletal normal posture, other (generalized deconditioning) - Psychiatric oriented to time, oriented to person, oriented to place, speech is normal, memory intact - Labs 06/17/17 04:57 06/17/17 04:57 Diabetes panel 06/17/17 Range/Units 04:57 Sodium 139 (136-145) mEq/L Potassium 4.0 (3.5-4.5) mEq/L Chloride 106 (98-109) mEq/L Carbon Dioxide 26 (19-29) mEq/L BUN 32 H (7-20) mg/dL Creatinine 1.05 (0.57-1.11) mg/dL Glucose 74 (70-99) mg/dL Calcium 8.4 L (8.6-10.8) mg/dL Calcium panel 06/17/17 06/17/17 Range/Units 04:57 04:57 Calcium 8.4 L (8.6-10.8) mg/dL Phosphorus 2.8 (2.3-4.7) mg/dL Pituitary panel 06/17/17 Range/Units 04:57 Sodium 139 (136-145) mEq/L Potassium 4.0 (3.5-4.5) mEq/L Chloride 106 (98-109) mEq/L Carbon Dioxide 26 (19-29) mEq/L BUN 32 H (7-20) mg/dL Creatinine 1.05 (0.57-1.11) mg/dL Glucose 74 (70-99) mg/dL Calcium 8.4 L (8.6-10.8) mg/dL Adrenal panel 06/17/17 Range/Units 04:57 Sodium 139 (136-145) mEq/L Potassium 4.0 (3.5-4.5) mEq/L Chloride 106 (98-109) mEq/L Carbon Dioxide 26 (19-29) mEq/L BUN 32 H (7-20) mg/dL Creatinine 1.05 (0.57-1.11) mg/dL Glucose 74 (70-99) mg/dL Calcium 8.4 L (8.6-10.8) mg/dL - Attending Attestation I have personally performed a face to face evaluation on this patient. I have reviewed and agree with the care plan. History and Exam by me shows:
[2017-06-17] MEDS: Piperacillin/Tazobactam 3.375 GM in D5% in Water 50 ML IVPB SCH ×2 (10:12→15:33)
[2017-06-17] MEDS ORDERED: *HR* Dextrose 50 % in Water (Syg) 50 ML SYRINGE IVP ONE ×2 (11:06→18:39)
[2017-06-17] MEDS: *HR* Heparin 5,000 UNIT/ML VIAL SQ SCH ×2 (15:21→21:56)
--- NOTE | 2017-06-18 00:07 | Internal Med Progress Note ---
Date of Encounter: 06/17/17 Time of Encounter: 15:07 - Assessment and plan (1) Partial small bowel obstruction Current Visit: Yes Status: Acute (2) Urinary tract infection Current Visit: Yes Status: Acute Assessment and plan: Continue Zosyn, treat for 3-5 days Qualifiers: Urinary tract infection type: site unspecified Hematuria presence: without hematuria Qualified Code(s): N39.0 - Urinary tract infection, site not specified (3) Acute kidney injury Current Visit: No Status: Resolved Assessment and plan: Resolved (4) Atrial fibrillation Current Visit: No Status: Chronic Assessment and plan: Rate controlled with metoprolol Xarelto held in case of surgical intervention Qualifiers: Atrial fibrillation type: chronic Qualified Code(s): I48.2 - Chronic atrial fibrillation (5) COPD (chronic obstructive pulmonary disease) Current Visit: No Status: Chronic Assessment and plan: Albuterol prn Qualifiers: COPD type: unspecified COPD Qualified Code(s): J44.9 - Chronic obstructive pulmonary disease, unspecified (6) Hypertension Current Visit: No Status: Chronic Assessment and plan: Diltiazem, Losartan, metoprolol Qualifiers: Hypertension type: essential hypertension Qualified Code(s): I10 - Essential (primary) hypertension - Subjective Interval history: No acute events. - Constitutional Vitals: Temp Pulse Resp BP Pulse Ox 98.1 F 87 14 148/62 97 06/17/17 21:09 06/17/17 21:09 06/17/17 21:09 06/17/17 21:09 06/17/17 21:09 General appearance: Present: A&O X 3, answers questions appropriately Exam: - Head Head exam: Present: atraumatic, normocephalic, MMM - Eye Eye exam: Present: PERRL, conjuntiva pink, sclera anicteric Pupils: Present: PERRL - Neck Neck exam general surgery: Present: supple, trachea midline. Absent: lymphadenopathy - Respiratory Respiratory exam: Present: CTAB. Absent: accessory muscle use, rales, rhonchi, wheezes - Cardiovascular Cardiovascular exam: Present: RRR, +S1, +S2. Absent: diastolic murmur, gallop, rubs, systolic murmur - GI/Abdominal GI/Abdominal exam: Present: normal bowel sounds, soft, tenderness, no peritoneal signs. Absent: distended - Extremities Exam Extremities exam: Present: warm, radial pulses palpable and symmetrical. Absent : calf tenderness, cyanotic, pedal edema - Neurological Exam Neurological exam: Present: CN II-XII intact, oriented X3, no focal deficits. Absent: pronater drift, facial droop, speech deficit - Skin Skin exam: Present: dry, intact Internal Medicine: Result - Labs CBC & Chem 7: 06/17/17 04:57 06/17/17 04:57 Labs: Short CBC 06/17/17 Range/Units 04:57 WBC 16.2 H (4.3-11.1) K/mcL Hgb 9.9 L (11.5-15.4) g/dL Hct 30.8 L (35.3-44.9) % Plt Count 215 (140-400) K/mcL Neutrophils # 12.8 H (1.6-8.9) K/mcL BMP 06/17/17 04:57 Sodium 139 Potassium 4.0 Chloride 106 Carbon Dioxide 26 BUN 32 H Creatinine 1.05 Glucose 74 Calcium 8.4 L - ABG Interpretation ABG results: PT/INR, D-dimer PT 16.5 Seconds (9.4-12.1) H 06/17/17 04:57 Consult Discharge Plan - Plan Referrals: Holley Alexander DO [Primary Care Provider] -
[2017-06-18] MEDS: Piperacillin/Tazobactam 3.375 GM in D5% in Water 50 ML IVPB SCH ×3 (01:57→16:29)
[2017-06-18] MEDS: *HR* Heparin 5,000 UNIT/ML VIAL SQ SCH ×3 (05:38→21:41)
[2017-06-18 06:22] LABS: Basophils % 0.3 %; Eosinophils # 0.1 K/mcL (0.0-0.6); Eosinophils % 0.9 %; Hematocrit 30.7 % (35.3-44.9); Hemoglobin 9.6 g/dL (11.5-15.4); Immature Granulocytes % 0.8 % (0-4); Lymphocytes # 1.6 K/mcL (0.6-4.6); Lymphocytes % 13.2 %; Mean Corpuscular HGB Conc 31.3 g/dL (31.6-35.5); Mean Corpuscular Hemoglobin 28.6 pg (28.0-33.3); Mean Corpuscular Volume 91.4 fL (83.0-100.0); Mean Platelet Volume 12.4 fL (9.4-12.4); Monocytes # 0.8 K/mcL (0.0-1.3); Monocytes % 7.2 %; Neutrophils # 9.1 K/mcL (1.6-8.9); Platelet Count 209 K/mcL (140-400); Red Blood Count 3.36 M/mcL (3.82-4.97); Red Cell Distribution Width 15.7 % (11.5-14.5); Segmented Neutrophils % 77.6 %
[2017-06-18 06:32] LABS: BUN/Creatinine Ratio 24 (6-26); Blood Urea Nitrogen 24 mg/dL (7-20); Calcium 8.1 mg/dL (8.6-10.8); Carbon Dioxide 25 mEq/L (19-29); Chloride 111 mEq/L (98-109); Glucose 70 mg/dL (70-99); Osmolality,Calculated 298 (280-300); Potassium 3.7 mEq/L (3.5-4.5); Sodium 143 mEq/L (136-145); eGFR For African Americans > 60 (> 60); eGFR For Non-African Americans 53 (> 60)
[2017-06-18] MEDS: Metoprolol 100 MG TABLET PO SCH ×2 (08:51→21:43)
[2017-06-18] MEDS: Diltiazem CD (24hr) 180 MG CAPSULE PO SCH (08:51)
--- NOTE | 2017-06-18 12:30 | General Surgery Progress Note ---
Date of Encounter: 06/18/17 Time of Encounter: 12:27 - Assessment and Plan (1) SBO (small bowel obstruction) Current Visit: Yes Status: Acute The patient's NGT output was approximately 300ml yesterday. No abdominal pain with possible mild flatus. Continue with NGT decompression and will consider placing to gravity or clamping tomorrow if patient continues to improve. Will add ice chips. Subjective Patient reports: other (The patient states she feels better. Small amount of flatus yesterday evening and this morning. No BM. No nausea.) Objective Vital Signs - Last 8 Hours Temp Pulse Resp BP Pulse Ox 06/18/17 12:21 98.8 F 66 18 148/71 94 06/18/17 07:21 98.9 F 70 15 136/73 94 Intake and Output 06/17/17 06/18/17 06/18/17 23:59 07:59 15:59 Intake Total 50 / 50 1050 / 1050 Output Total 300 / 300 0 / 0 Balance -250 / -250 1050 / 1050 Intake: IV Fluids 50 / 50 1050 / 1050 0.9 % Sodium Chloride 1,000 ML 1000 / 1000 @ 100 mls/hr IVC .Q10H [facility] Rx#: [id number] Zosyn 3.375 GM In Dextrose 5% ( 50 / 50 50 / 50 ADD-Tropic) 50 ML @ 12.5 mls/ hr IVPB Q8HR [facility] Rx#:[id number] Oral 0 / 0 0 / 0 Output: Urine 0 / 0 0 / 0 Gastric Tube Lavage Amount 300 / 300 Right Nare 300 / 300 Other: # Voids 1 1 Weight 81.329 kg Blood Glucose* 78 70 67 Patient Weight 06/18/17 23:59 Weight 81.329 kg - General physical appearance well developed, well nourished, no distress - Respiratory normal expansion, normal respiratory effort - Abdomen Abdomen: Present: bowel sounds present, soft (No pain with palpation. Mild bowel sounds. NGT in place. ) - Labs 06/18/17 06:03 06/18/17 06:03 Diabetes panel 06/18/17 Range/Units 06:03 Sodium 143 (136-145) mEq/L Potassium 3.7 (3.5-4.5) mEq/L Chloride 111 H (98-109) mEq/L Carbon Dioxide 25 (19-29) mEq/L BUN 24 H (7-20) mg/dL Creatinine 1.00 (0.57-1.11) mg/dL Glucose 70 (70-99) mg/dL Calcium 8.1 L (8.6-10.8) mg/dL Calcium panel 06/18/17 Range/Units 06:03 Calcium 8.1 L (8.6-10.8) mg/dL Pituitary panel 06/18/17 Range/Units 06:03 Sodium 143 (136-145) mEq/L Potassium 3.7 (3.5-4.5) mEq/L Chloride 111 H (98-109) mEq/L Carbon Dioxide 25 (19-29) mEq/L BUN 24 H (7-20) mg/dL Creatinine 1.00 (0.57-1.11) mg/dL Glucose 70 (70-99) mg/dL Calcium 8.1 L (8.6-10.8) mg/dL Adrenal panel 06/18/17 Range/Units 06:03 Sodium 143 (136-145) mEq/L Potassium 3.7 (3.5-4.5) mEq/L Chloride 111 H (98-109) mEq/L Carbon Dioxide 25 (19-29) mEq/L BUN 24 H (7-20) mg/dL Creatinine 1.00 (0.57-1.11) mg/dL Glucose 70 (70-99) mg/dL Calcium 8.1 L (8.6-10.8) mg/dL Consult Discharge Plan - Plan Referrals: Holley Alexander DO [Primary Care Provider] -
--- NOTE | 2017-06-18 23:51 | Internal Med Progress Note ---
Date of Encounter: 06/18/17 Time of Encounter: 13:48 - Assessment and plan (1) Partial small bowel obstruction Current Visit: Yes Status: Acute Assessment and plan: Surgery following, recommendations appreciated. Continue NGT and continue to monitor. (2) Urinary tract infection Current Visit: Yes Status: Acute Assessment and plan: Continue Zosyn, treat for 3-5 days Qualifiers: Urinary tract infection type: site unspecified Hematuria presence: without hematuria Qualified Code(s): N39.0 - Urinary tract infection, site not specified (3) Acute kidney injury Current Visit: No Status: Resolved Assessment and plan: Resolved (4) Atrial fibrillation Current Visit: No Status: Chronic Assessment and plan: Rate controlled with metoprolol Xarelto held in case of surgical intervention Qualifiers: Atrial fibrillation type: chronic Qualified Code(s): I48.2 - Chronic atrial fibrillation (5) COPD (chronic obstructive pulmonary disease) Current Visit: No Status: Chronic Assessment and plan: Albuterol prn Qualifiers: COPD type: unspecified COPD Qualified Code(s): J44.9 - Chronic obstructive pulmonary disease, unspecified (6) Hypertension Current Visit: No Status: Chronic Assessment and plan: Diltiazem, Losartan, metoprolol Qualifiers: Hypertension type: essential hypertension Qualified Code(s): I10 - Essential (primary) hypertension - Subjective Interval history: No acute events. Denies abdominal pain, distention, feels better. NGT still actively draining with improvement of patients symptoms. - Constitutional Vitals: Temp Pulse Resp BP Pulse Ox 97.9 F 64 16 154/70 95 06/18/17 23:34 06/18/17 23:34 06/18/17 23:34 06/18/17 23:34 06/18/17 23:34 General appearance: Present: A&O X 3, answers questions appropriately Exam: - Head Head exam: Present: atraumatic, normocephalic, MMM - Eye Eye exam: Present: PERRL, conjuntiva pink, sclera anicteric Pupils: Present: PERRL - Neck Neck exam general surgery: Present: supple, trachea midline. Absent: lymphadenopathy - Respiratory Respiratory exam: Present: CTAB. Absent: accessory muscle use, rales, rhonchi, wheezes - Cardiovascular Cardiovascular exam: Present: RRR, +S1, +S2. Absent: diastolic murmur, gallop, rubs, systolic murmur - GI/Abdominal GI/Abdominal exam: Present: normal bowel sounds, soft, tenderness, no peritoneal signs. Absent: distended - Extremities Exam Extremities exam: Present: warm, radial pulses palpable and symmetrical. Absent : calf tenderness, cyanotic, pedal edema - Neurological Exam Neurological exam: Present: CN II-XII intact, oriented X3, no focal deficits. Absent: pronater drift, facial droop, speech deficit - Skin Skin exam: Present: dry, intact Internal Medicine: Result - Labs CBC & Chem 7: 06/18/17 06:03 06/18/17 06:03 Labs: Short CBC 06/18/17 Range/Units 06:03 WBC 11.7 H (4.3-11.1) K/mcL Hgb 9.6 L (11.5-15.4) g/dL Hct 30.7 L (35.3-44.9) % Plt Count 209 (140-400) K/mcL Neutrophils # 9.1 H (1.6-8.9) K/mcL BMP 06/18/17 06:03 Sodium 143 Potassium 3.7 Chloride 111 H Carbon Dioxide 25 BUN 24 H Creatinine 1.00 Glucose 70 Calcium 8.1 L - ABG Interpretation ABG results: PT/INR, D-dimer PT 16.5 Seconds (9.4-12.1) H 06/17/17 04:57 - Impressions Impressions KUB X-Ray 06/18/17 00:21 IMPRESSION: The nasogastric tube side port is noted near the expected location of the GE junction. This could be advanced 6 cm for more optimal placement. D/ / Dmitry Bennett MD / Dmitry Bennett MD Interpreting Provider: Dmitry Bennett MD Consult Discharge Plan - Plan Referrals: Holley Alexander DO [Primary Care Provider] -
[2017-06-19] MEDS ORDERED: *HR* Dextrose 50 % in Water (Syg) 50 ML SYRINGE IVP ONE (00:10)
[2017-06-19] MEDS: D5% in 0.9% NACL 1,000 ML IVC SCH ×2 (00:21→15:35)
[2017-06-19] MEDS: Piperacillin/Tazobactam 3.375 GM in D5% in Water 50 ML IVPB SCH ×3 (01:20→15:34)
[2017-06-19] MEDS: Metoprolol 100 MG TABLET PO SCH ×2 (07:46→21:05)
[2017-06-19] MEDS: Diltiazem CD (24hr) 180 MG CAPSULE PO SCH (07:46)
[2017-06-19] MEDS: *HR* Heparin 5,000 UNIT/ML VIAL SQ SCH ×3 (08:05→21:05)
[2017-06-19] MEDS ORDERED: Dextrose Gel 15 GM PO PRN ×2 (09:56)
[2017-06-19] MEDS ORDERED: *HR* Dextrose 50 % in Water (Syg) 50 ML SYRINGE IVP PRN (09:56)
[2017-06-19] MEDS ORDERED: D5% in Water 1,000 ML IVC PRN (09:56)
[2017-06-19 10:09] LABS: Basophils # 0.1 K/mcL (0.0-0.2); Basophils % 0.7 %; Eosinophils # 0.3 K/mcL (0.0-0.6); Eosinophils % 3.5 %; Hematocrit 31.1 % (35.3-44.9); Immature Granulocytes % 0.5 % (0-4); Lymphocytes # 1.5 K/mcL (0.6-4.6); Lymphocytes % 19.1 %; Mean Corpuscular HGB Conc 32.2 g/dL (31.6-35.5); Mean Corpuscular Hemoglobin 29.5 pg (28.0-33.3); Mean Corpuscular Volume 91.7 fL (83.0-100.0); Mean Platelet Volume 11.1 fL (9.4-12.4); Monocytes # 0.7 K/mcL (0.0-1.3); Monocytes % 9.7 %; Neutrophils # 5.1 K/mcL (1.6-8.9); Platelet Count 224 K/mcL (140-400); Red Blood Count 3.39 M/mcL (3.82-4.97); Red Cell Distribution Width 15.6 % (11.5-14.5); Segmented Neutrophils % 66.5 %
[2017-06-19 10:23] LABS: Blood Urea Nitrogen 17 mg/dL (7-20); Calcium 8.2 mg/dL (8.6-10.8); Carbon Dioxide 29 mEq/L (19-29); Chloride 109 mEq/L (98-109); Glucose 99 mg/dL (70-99); Osmolality,Calculated 298 (280-300); Potassium 3.7 mEq/L (3.5-4.5); Sodium 143 mEq/L (136-145)
[2017-06-19 10:45] LABS: BUN/Creatinine Ratio 17 (6-26); eGFR For African Americans > 60 (> 60); eGFR For Non-African Americans 54 (> 60)
--- NOTE | 2017-06-19 13:57 | General Surgery Progress Note ---
Date of Encounter: 06/19/17 Time of Encounter: 13:56 - Assessment and Plan (1) SBO (small bowel obstruction) Current Visit: Yes Status: Acute Will clamp NGT and allow clears around NGT. To consider removal either later today or tomorrow if she tolerates clears. Subjective Patient reports: no new complaints, feels better (No nausea. Admits to some flatus. ) Objective Vital Signs - Last 8 Hours Temp Pulse Resp BP Pulse Ox 06/19/17 07:10 98.7 F 60 16 157/66 95 Intake and Output 06/18/17 06/19/17 06/19/17 23:59 07:59 15:59 Intake Total 185 / 185 50 / 50 Output Total 1200 / 1200 Balance -1015 / -1015 50 / 50 Intake: IV Fluids 50 / 50 50 / 50 Zosyn 3.375 GM In Dextrose 5% ( 50 / 50 50 / 50 ADD-[place]) 50 ML @ 12.5 mls/ hr IVPB Q8HR [facility] Rx#:[id number] Oral 60 / 60 Other 75 / 75 Output: Urine 300 / 300 Gastric Drainage 900 / 900 Right Nare 200 / 200 Other: Weight 80.286 kg Blood Glucose* 54 82 Patient Weight 06/19/17 23:59 Weight 80.286 kg - General physical appearance well nourished, no distress - Respiratory normal expansion, normal respiratory effort - Abdomen Abdomen: Present: bowel sounds present, soft, non tender - Labs 06/19/17 10:02 06/19/17 10:02 Diabetes panel 06/19/17 Range/Units 10:02 Sodium 143 (136-145) mEq/L Potassium 3.7 (3.5-4.5) mEq/L Chloride 109 (98-109) mEq/L Carbon Dioxide 29 (19-29) mEq/L BUN 17 (7-20) mg/dL Creatinine 0.98 (0.57-1.11) mg/dL Glucose 99 (70-99) mg/dL Calcium 8.2 L (8.6-10.8) mg/dL Calcium panel 06/19/17 Range/Units 10:02 Calcium 8.2 L (8.6-10.8) mg/dL Pituitary panel 06/19/17 Range/Units 10:02 Sodium 143 (136-145) mEq/L Potassium 3.7 (3.5-4.5) mEq/L Chloride 109 (98-109) mEq/L Carbon Dioxide 29 (19-29) mEq/L BUN 17 (7-20) mg/dL Creatinine 0.98 (0.57-1.11) mg/dL Glucose 99 (70-99) mg/dL Calcium 8.2 L (8.6-10.8) mg/dL Adrenal panel 06/19/17 Range/Units 10:02 Sodium 143 (136-145) mEq/L Potassium 3.7 (3.5-4.5) mEq/L Chloride 109 (98-109) mEq/L Carbon Dioxide 29 (19-29) mEq/L BUN 17 (7-20) mg/dL Creatinine 0.98 (0.57-1.11) mg/dL Glucose 99 (70-99) mg/dL Calcium 8.2 L (8.6-10.8) mg/dL Consult Discharge Plan - Plan Referrals: Holley Alexander DO [Primary Care Provider] -
--- NOTE | 2017-06-19 23:29 | Internal Med Progress Note ---
Date of Encounter: 06/19/17 Time of Encounter: 16:27 - Assessment and plan (1) Partial small bowel obstruction Current Visit: Yes Status: Acute Assessment and plan: Surgery following, recommendations appreciated. Continue NGT, possibly clamped soon given her improvements. (2) Urinary tract infection Current Visit: Yes Status: Acute Assessment and plan: Continue Zosyn, treat for 3-5 days Qualifiers: Urinary tract infection type: site unspecified Hematuria presence: without hematuria Qualified Code(s): N39.0 - Urinary tract infection, site not specified (3) Acute kidney injury Current Visit: No Status: Resolved Assessment and plan: Resolved (4) Atrial fibrillation Current Visit: No Status: Chronic Assessment and plan: Rate controlled with metoprolol Xarelto held in case of surgical intervention Qualifiers: Atrial fibrillation type: chronic Qualified Code(s): I48.2 - Chronic atrial fibrillation (5) COPD (chronic obstructive pulmonary disease) Current Visit: No Status: Chronic Assessment and plan: Albuterol prn Qualifiers: COPD type: unspecified COPD Qualified Code(s): J44.9 - Chronic obstructive pulmonary disease, unspecified (6) Hypertension Current Visit: No Status: Chronic Qualifiers: Hypertension type: essential hypertension Qualified Code(s): I10 - Essential (primary) hypertension - Subjective Interval history: States she is feeling very good. Had a bowel movement that alleviated a lot of distention. Denies abdominal pain,NGT still actively draining with improvement of patients symptoms. - Constitutional Vitals: Temp Pulse Resp BP Pulse Ox 97.5 F L 58 15 147/57 97 06/19/17 19:10 06/19/17 19:10 06/19/17 19:10 06/19/17 19:10 06/19/17 19:10 General appearance: Present: A&O X 3, answers questions appropriately Exam: - Head Head exam: Present: atraumatic, normocephalic, MMM - Eye Eye exam: Present: PERRL, conjuntiva pink, sclera anicteric Pupils: Present: PERRL - Neck Neck exam general surgery: Present: supple, trachea midline. Absent: lymphadenopathy - Respiratory Respiratory exam: Present: CTAB. Absent: accessory muscle use, rales, rhonchi, wheezes - Cardiovascular Cardiovascular exam: Present: RRR, +S1, +S2. Absent: diastolic murmur, gallop, rubs, systolic murmur - GI/Abdominal GI/Abdominal exam: Present: normal bowel sounds, soft, tenderness, no peritoneal signs. Absent: distended - Extremities Exam Extremities exam: Present: warm, radial pulses palpable and symmetrical. Absent : calf tenderness, cyanotic, pedal edema - Skin Skin exam: Present: dry, intact Internal Medicine: Result - Labs CBC & Chem 7: 06/19/17 10:02 06/19/17 10:02 Labs: Short CBC 06/19/17 Range/Units 10:02 WBC 7.6 (4.3-11.1) K/mcL Hgb 10.0 L (11.5-15.4) g/dL Hct 31.1 L (35.3-44.9) % Plt Count 224 (140-400) K/mcL Neutrophils # 5.1 (1.6-8.9) K/mcL BMP 06/19/17 10:02 Sodium 143 Potassium 3.7 Chloride 109 Carbon Dioxide 29 BUN 17 Creatinine 0.98 Glucose 99 Calcium 8.2 L - ABG Interpretation ABG results: PT/INR, D-dimer PT 16.5 Seconds (9.4-12.1) H 06/17/17 04:57 Consult Discharge Plan - Plan Referrals: Holley Alexander DO [Primary Care Provider] -
[2017-06-20] MEDS: Piperacillin/Tazobactam 3.375 GM in D5% in Water 50 ML IVPB SCH ×2 (00:10→07:40)
[2017-06-20] MEDS: D5% in 0.9% NACL 1,000 ML IVC SCH (03:43)
[2017-06-20] MEDS: *HR* Heparin 5,000 UNIT/ML VIAL SQ SCH ×3 (05:05→21:30)
[2017-06-20 05:34] LABS: Basophils # 0.1 K/mcL (0.0-0.2); Basophils % 0.7 %; Eosinophils # 0.3 K/mcL (0.0-0.6); Eosinophils % 4.6 %; Hematocrit 30.9 % (35.3-44.9); Hemoglobin 9.9 g/dL (11.5-15.4); Immature Granulocytes % 0.7 % (0-4); Lymphocytes # 2.1 K/mcL (0.6-4.6); Lymphocytes % 27.9 %; Mean Corpuscular Hemoglobin 29.2 pg (28.0-33.3); Mean Corpuscular Volume 91.2 fL (83.0-100.0); Mean Platelet Volume 12.1 fL (9.4-12.4); Monocytes # 0.8 K/mcL (0.0-1.3); Monocytes % 10.9 %; Neutrophils # 4.1 K/mcL (1.6-8.9); Platelet Count 232 K/mcL (140-400); Red Blood Count 3.39 M/mcL (3.82-4.97); Red Cell Distribution Width 15.4 % (11.5-14.5); Segmented Neutrophils % 55.2 %
[2017-06-20 05:44] LABS: BUN/Creatinine Ratio 13 (6-26); Blood Urea Nitrogen 11 mg/dL (7-20); Calcium 7.9 mg/dL (8.6-10.8); Carbon Dioxide 26 mEq/L (19-29); Chloride 110 mEq/L (98-109); Glucose 113 mg/dL (70-99); Osmolality,Calculated 296 (280-300); Potassium 3.1 mEq/L (3.5-4.5); Sodium 143 mEq/L (136-145); eGFR For African Americans > 60 (> 60); eGFR For Non-African Americans > 60 (> 60)
[2017-06-20] MEDS: Diltiazem CD (24hr) 180 MG CAPSULE PO SCH (07:41)
[2017-06-20] MEDS: Metoprolol 100 MG TABLET PO SCH ×2 (07:42→21:29)
--- NOTE | 2017-06-20 08:59 | General Surgery Progress Note ---
<Makenna Wade - Last Filed: 06/20/17 09:10> Date of Encounter: 06/20/17 Time of Encounter: 08:59 - Assessment and Plan (1) SBO (small bowel obstruction) Current Visit: Yes Status: Acute Bowel sounds present in all 4 quadrants. NG tube is clamped. She is tolerating clear liquids around the tube without nausea or vomiting. She states multiple episodes of flatus as well as bowel movements. She denies abdominal discomfort. Her abdominal exam is benign. SBFT today. Further recommendations pending. Replace potassium Subjective Patient reports: no new complaints, feels better, tolerating liquids well, voiding w/o difficulty, flatus, bowel movement, afebrile Narrative: States, "I feel great." Objective Vital Signs - Last 8 Hours Temp Pulse Resp BP Pulse Ox 06/20/17 07:17 98.2 F 51 14 153/66 96 06/20/17 04:50 98.4 F 73 16 148/62 97 Intake and Output 06/19/17 06/20/17 06/20/17 23:59 07:59 15:59 Intake Total 530 / 530 1350 / 1350 Output Total 0 / 0 500 / 500 Balance 530 / 530 850 / 850 Intake: IV Fluids 50 / 50 1350 / 1350 D5% And 0.9% Nacl 1000 Ml 1,000 1300 / 1300 ML @ 75 mls/hr IVC .[id number] [facility] Rx#:[id number] Zosyn 3.375 GM In Dextrose 5% ( 50 / 50 50 / 50 ADD-[place]) 50 ML @ 12.5 mls/ hr IVPB Q8HR [facility] Rx#:[id number] Oral 480 / 480 0 / 0 Output: Urine 0 / 0 0 / 0 Gastric Drainage 500 / 500 Other: Meal Dinner Stool Consistency loose liquid Stool Color Brown # Voids 2 # Bowel Movements 1 2 Weight 80.4 kg Patient Weight 06/20/17 23:59 Weight 80.4 kg - General physical appearance well nourished, no distress - Eyes normal ocular movement - ENT atraumatic, normocephalic - Neck Neck exam: trachea midline, no venous distension - Respiratory normal expansion, normal respiratory effort, clear to auscultation - Cardiovascular Cardiovascular exam: Present: RRR - Abdomen Abdomen: Present: bowel sounds present, soft, non tender Hernia: none - Integumentary no growths - Neurologic normal sensation - Musculoskeletal normal gait, normal posture - Psychiatric oriented to time, oriented to person, oriented to place, speech is normal, memory intact - Labs 06/20/17 04:58 06/20/17 04:58 Diabetes panel 06/19/17 06/20/17 Range/Units 10:02 04:58 Sodium 143 143 (136-145) mEq/L Potassium 3.7 3.1 L (3.5-4.5) mEq/L Chloride 109 110 H (98-109) mEq/L Carbon Dioxide 29 26 (19-29) mEq/L BUN 17 11 (7-20) mg/dL Creatinine 0.98 0.87 (0.57-1.11) mg/dL Glucose 99 113 H (70-99) mg/dL Calcium 8.2 L 7.9 L (8.6-10.8) mg/dL Calcium panel 06/19/17 06/20/17 Range/Units 10:02 04:58 Calcium 8.2 L 7.9 L (8.6-10.8) mg/dL Pituitary panel 06/19/17 06/20/17 Range/Units 10:02 04:58 Sodium 143 143 (136-145) mEq/L Potassium 3.7 3.1 L (3.5-4.5) mEq/L Chloride 109 110 H (98-109) mEq/L Carbon Dioxide 29 26 (19-29) mEq/L BUN 17 11 (7-20) mg/dL Creatinine 0.98 0.87 (0.57-1.11) mg/dL Glucose 99 113 H (70-99) mg/dL Calcium 8.2 L 7.9 L (8.6-10.8) mg/dL Adrenal panel 06/19/17 06/20/17 Range/Units 10:02 04:58 Sodium 143 143 (136-145) mEq/L Potassium 3.7 3.1 L (3.5-4.5) mEq/L Chloride 109 110 H (98-109) mEq/L Carbon Dioxide 29 26 (19-29) mEq/L BUN 17 11 (7-20) mg/dL Creatinine 0.98 0.87 (0.57-1.11) mg/dL Glucose 99 113 H (70-99) mg/dL Calcium 8.2 L 7.9 L (8.6-10.8) mg/dL Consult Discharge Plan - Plan Referrals: Holley Alexander, DO [Primary Care Provider] - <Jennifer Olivo - Last Filed: 06/20/17 09:19> Date of Encounter: 06/20/17 - Assessment and Plan (1) Small bowel obstruction due to postoperative adhesions Current Visit: Yes Status: Acute patient passing flatus and having bm will obtain sbft with gastrograffin to further evaluate small bowel especially the area of anastomosis if sbft wnl once completed, will dc ngt and advance to fulls (2) Leukocytosis Current Visit: Yes Status: Resolved wnl Qualifiers: Leukocytosis type: unspecified Qualified Code(s): D72.829 - Elevated white blood cell count, unspecified (3) Abdominal pain Current Visit: No Status: Resolved no further abdominal pain Qualifiers: Abdominal location: generalized Qualified Code(s): R10.84 - Generalized abdominal pain (4) DVT prophylaxis Current Visit: No Status: Acute heparin sq q8hr Subjective Narrative: no complaints, tolerating clears wiht ngt to gravity denies abdominal pain/N/V, passing flatus and having liquid bms Objective Vital Signs - Last 8 Hours Temp Pulse Resp BP Pulse Ox 06/20/17 07:17 98.2 F 51 14 153/66 96 06/20/17 04:50 98.4 F 73 16 148/62 97 Intake and Output 06/19/17 06/20/17 06/20/17 23:59 07:59 15:59 Intake Total 530 / 530 1350 / 1350 Output Total 0 / 0 500 / 500 Balance 530 / 530 850 / 850 Intake: IV Fluids 50 / 50 1350 / 1350 D5% And 0.9% Nacl 1000 Ml 1,000 1300 / 1300 ML @ 75 mls/hr IVC .[id number] [facility] Rx#:[id number] Zosyn 3.375 GM In Dextrose 5% ( 50 / 50 50 / 50 ADD-[place]) 50 ML @ 12.5 mls/ hr IVPB Q8HR [facility] Rx#:[id number] Oral 480 / 480 0 / 0 Output: Urine 0 / 0 0 / 0 Gastric Drainage 500 / 500 Other: Meal Dinner Stool Consistency loose liquid Stool Color Brown # Voids 2 # Bowel Movements 1 2 Weight 80.4 kg Patient Weight 06/20/17 23:59 Weight 80.4 kg - General physical appearance well developed, well nourished, no distress - Eyes PERRL, normal ocular movement - ENT normal mucosa, normocephalic - Neck Neck exam: trachea midline - Respiratory normal expansion, normal respiratory effort - Cardiovascular Cardiovascular exam: Present: RRR - Abdomen Abdomen: Present: bowel sounds present, soft, non tender Hernia: incisional - Integumentary no growths - Neurologic normal sensation - Musculoskeletal normal posture - Psychiatric oriented to time, oriented to person, oriented to place, memory intact - Labs 06/20/17 04:58 06/20/17 04:58 Diabetes panel 06/19/17 06/20/17 Range/Units 10:02 04:58 Sodium 143 143 (136-145) mEq/L Potassium 3.7 3.1 L (3.5-4.5) mEq/L Chloride 109 110 H (98-109) mEq/L Carbon Dioxide 29 26 (19-29) mEq/L BUN 17 11 (7-20) mg/dL Creatinine 0.98 0.87 (0.57-1.11) mg/dL Glucose 99 113 H (70-99) mg/dL Calcium 8.2 L 7.9 L (8.6-10.8) mg/dL Calcium panel 06/19/17 06/20/17 Range/Units 10:02 04:58 Calcium 8.2 L 7.9 L (8.6-10.8) mg/dL Pituitary panel 06/19/17 06/20/17 Range/Units 10:02 04:58 Sodium 143 143 (136-145) mEq/L Potassium 3.7 3.1 L (3.5-4.5) mEq/L Chloride 109 110 H (98-109) mEq/L Carbon Dioxide 29 26 (19-29) mEq/L BUN 17 11 (7-20) mg/dL Creatinine 0.98 0.87 (0.57-1.11) mg/dL Glucose 99 113 H (70-99) mg/dL Calcium 8.2 L 7.9 L (8.6-10.8) mg/dL Adrenal panel 06/19/17 06/20/17 Range/Units 10:02 04:58 Sodium 143 143 (136-145) mEq/L Potassium 3.7 3.1 L (3.5-4.5) mEq/L Chloride 109 110 H (98-109) mEq/L Carbon Dioxide 29 26 (19-29) mEq/L BUN 17 11 (7-20) mg/dL Creatinine 0.98 0.87 (0.57-1.11) mg/dL Glucose 99 113 H (70-99) mg/dL Calcium 8.2 L 7.9 L (8.6-10.8) mg/dL - Attending Attestation I have personally performed a face to face evaluation on this patient. I have reviewed and agree with the care plan. History and Exam by me shows:
[2017-06-20] MEDS ORDERED: Potassium Chloride 40 MEQ, Lidocaine 1% 2 ML in D5% in Water 500 ML IVPB ONE (09:04)
--- NOTE | 2017-06-21 04:40 | Internal Med Progress Note ---
Date of Encounter: 06/20/17 Time of Encounter: 16:38 - Assessment and plan (1) Partial small bowel obstruction Current Visit: Yes Status: Acute Assessment and plan: Doing well. Surgery following, recommendations appreciated. (2) Urinary tract infection Current Visit: Yes Status: Resolved Assessment and plan: Completed course with Zosyn. Qualifiers: Urinary tract infection type: site unspecified Hematuria presence: without hematuria Qualified Code(s): N39.0 - Urinary tract infection, site not specified (3) Acute kidney injury Current Visit: No Status: Resolved Assessment and plan: Resolved (4) Atrial fibrillation Current Visit: No Status: Chronic Assessment and plan: Resume Xarelto tomorrow AM. Qualifiers: Atrial fibrillation type: chronic Qualified Code(s): I48.2 - Chronic atrial fibrillation (5) COPD (chronic obstructive pulmonary disease) Current Visit: No Status: Chronic Qualifiers: COPD type: unspecified COPD Qualified Code(s): J44.9 - Chronic obstructive pulmonary disease, unspecified (6) Hypertension Current Visit: No Status: Chronic Assessment and plan: Diltiazem, Losartan, metoprolol Qualifiers: Hypertension type: essential hypertension Qualified Code(s): I10 - Essential (primary) hypertension - Subjective Interval history: NGT now out. Denies abdominal pain, denies distention. Appetite is good. - Constitutional Vitals: Temp Pulse Resp BP Pulse Ox 98.0 F 54 14 154/71 99 06/21/17 03:35 06/21/17 03:35 06/21/17 03:35 06/21/17 03:35 06/21/17 03:35 General appearance: Present: A&O X 3, answers questions appropriately - Respiratory Respiratory exam: Present: CTAB. Absent: accessory muscle use, rales, rhonchi, wheezes - Cardiovascular Cardiovascular exam: Present: RRR, +S1, +S2. Absent: diastolic murmur, gallop, rubs, systolic murmur - GI/Abdominal GI/Abdominal exam: Present: normal bowel sounds, soft, no peritoneal signs. Absent: distended, tenderness - Extremities Exam Extremities exam: Present: warm, radial pulses palpable and symmetrical. Absent : calf tenderness, cyanotic, pedal edema Internal Medicine: Result - Labs CBC & Chem 7: 06/20/17 04:58 06/20/17 04:58 Labs: Short CBC 06/20/17 Range/Units 04:58 WBC 7.4 (4.3-11.1) K/mcL Hgb 9.9 L (11.5-15.4) g/dL Hct 30.9 L (35.3-44.9) % Plt Count 232 (140-400) K/mcL Neutrophils # 4.1 (1.6-8.9) K/mcL BMP 06/20/17 04:58 Sodium 143 Potassium 3.1 L Chloride 110 H Carbon Dioxide 26 BUN 11 Creatinine 0.87 Glucose 113 H Calcium 7.9 L - ABG Interpretation ABG results: PT/INR, D-dimer PT 16.5 Seconds (9.4-12.1) H 06/17/17 04:57 - Impressions Impressions Small Bowel X-Ray 06/20/17 08:56 IMPRESSION: 1. No evidence of small bowel obstruction. Rapid transit time. Within 15 minutes, oral contrast had transited from the stomach to the rectum. D/ /20/2017 11:08:48 Octavio Asencio MD / tracy Interpreting Provider: Octavio Asencio MD Consult Discharge Plan - Plan Referrals: Holley Alexander DO [Primary Care Provider] -
[2017-06-21 05:06] LABS: Hematocrit 31.5 % (35.3-44.9); Hemoglobin 9.8 g/dL (11.5-15.4); Immature Granulocytes % 1.6 % (0-4); Immature Platelets 7.3 % (1.1-6.1); Lymphocytes % 33.1 %; Mean Corpuscular HGB Conc 31.1 g/dL (31.6-35.5); Mean Corpuscular Hemoglobin 28.6 pg (28.0-33.3); Mean Corpuscular Volume 91.8 fL (83.0-100.0); Mean Platelet Volume 11.8 fL (9.4-12.4); Platelet Count 236 K/mcL (140-400); Red Blood Count 3.43 M/mcL (3.82-4.97); Red Cell Distribution Width 15.5 % (11.5-14.5); Segmented Neutrophils % 49.7 %
[2017-06-21 05:07] LABS: Basophils # 0.1 K/mcL (0.0-0.2); Basophils % 0.8 %; Eosinophils # 0.3 K/mcL (0.0-0.6); Eosinophils % 4.2 %; Lymphocytes # 2.5 K/mcL (0.6-4.6); Monocytes # 0.8 K/mcL (0.0-1.3); Monocytes % 10.6 %; Neutrophils # 3.8 K/mcL (1.6-8.9)
[2017-06-21 05:19] LABS: BUN/Creatinine Ratio 10 (6-26); Blood Urea Nitrogen 8 mg/dL (7-20); Calcium 7.9 mg/dL (8.6-10.8); Carbon Dioxide 25 mEq/L (19-29); Chloride 110 mEq/L (98-109); Glucose 85 mg/dL (70-99); Osmolality,Calculated 290 (280-300); Potassium 3.7 mEq/L (3.5-4.5); Sodium 141 mEq/L (136-145); eGFR For African Americans > 60 (> 60); eGFR For Non-African Americans > 60 (> 60)
[2017-06-21] MEDS: *HR* Heparin 5,000 UNIT/ML VIAL SQ SCH (05:38)
[2017-06-21] MEDS: Diltiazem CD (24hr) 180 MG CAPSULE PO SCH (07:37)
[2017-06-21] MEDS: Metoprolol 100 MG TABLET PO SCH (07:38)
--- NOTE | 2017-06-21 11:17 | General Surgery Progress Note ---
Date of Encounter: 06/21/17 Time of Encounter: 11:10 - Assessment and Plan (1) SBO (small bowel obstruction) Current Visit: Yes Status: Resolved Bowel sounds present in all 4 quadrants. She is having BMs and passing flatus. Her abdominal exam is benign. Surgery will sign off at this time. Thank you for allowing us to participate in Ms Ernandez's care. Subjective Patient reports: no new complaints, feels better, pain is less, tolerating a regular diet, voiding w/o difficulty, flatus, bowel movement, afebrile Objective Vital Signs - Last 8 Hours Temp Pulse Resp BP Pulse Ox 06/21/17 07:35 98.6 F 56 14 166/70 97 06/21/17 03:35 98.0 F 54 14 154/71 99 Intake and Output 06/20/17 06/21/17 06/21/17 23:59 07:59 15:59 Intake Total 480 / 480 120 / 120 Output Total 0 / 0 300 / 300 Balance 480 / 480 120 / 120 -300 / -300 Intake: IV Fluids 0 / 0 D5% And 0.9% Nacl 1000 Ml 1,000 0 / 0 ML @ 75 mls/hr IVC .[id number] [facility] Rx#:[id number] Oral 480 / 480 120 / 120 Output: Urine 0 / 0 Urine/Stool Mix 300 / 300 Other: Meal Dinner Stool Size Small Stool Consistency loose liquid # Voids 1 1 # Bowel Movements 1 Weight 80.24 kg Patient Weight 06/21/17 23:59 Weight 80.24 kg - General physical appearance well nourished, no distress - Eyes normal ocular movement - ENT atraumatic, normocephalic - Neck Neck exam: trachea midline, no venous distension - Respiratory normal expansion, normal respiratory effort, clear to auscultation - Cardiovascular Cardiovascular exam: Present: RRR - Abdomen Abdomen: Present: bowel sounds present, soft, non tender Hernia: none - Integumentary no abnormal pigmentation - Neurologic normal coordination, normal sensation - Musculoskeletal normal gait, normal posture - Psychiatric oriented to time, oriented to person, oriented to place, speech is normal, memory intact - Labs 06/21/17 04:36 06/21/17 04:36 Diabetes panel 06/21/17 Range/Units 04:36 Sodium 141 (136-145) mEq/L Potassium 3.7 (3.5-4.5) mEq/L Chloride 110 H (98-109) mEq/L Carbon Dioxide 25 (19-29) mEq/L BUN 8 (7-20) mg/dL Creatinine 0.84 (0.57-1.11) mg/dL Glucose 85 (70-99) mg/dL Calcium 7.9 L (8.6-10.8) mg/dL Calcium panel 06/21/17 Range/Units 04:36 Calcium 7.9 L (8.6-10.8) mg/dL Pituitary panel 06/21/17 Range/Units 04:36 Sodium 141 (136-145) mEq/L Potassium 3.7 (3.5-4.5) mEq/L Chloride 110 H (98-109) mEq/L Carbon Dioxide 25 (19-29) mEq/L BUN 8 (7-20) mg/dL Creatinine 0.84 (0.57-1.11) mg/dL Glucose 85 (70-99) mg/dL Calcium 7.9 L (8.6-10.8) mg/dL Adrenal panel 06/21/17 Range/Units 04:36 Sodium 141 (136-145) mEq/L Potassium 3.7 (3.5-4.5) mEq/L Chloride 110 H (98-109) mEq/L Carbon Dioxide 25 (19-29) mEq/L BUN 8 (7-20) mg/dL Creatinine 0.84 (0.57-1.11) mg/dL Glucose 85 (70-99) mg/dL Calcium 7.9 L (8.6-10.8) mg/dL Consult Discharge Plan - Plan Instructions: Bowel Obstruction (DC), Bowel Obstruction (GEN) Referrals: Holley Alexander DO [Primary Care Provider] -
[2017-06-21 11:21] VITALS: BP 156/62
--- NOTE | 2017-06-21 12:05 | Discharge Summary ---
Date of Encounter: 06/21/17 Time of Encounter: 12:02 - Discharge Diagnosis (1) Partial small bowel obstruction Priority: Primary Status: Resolved (2) Atrial fibrillation Priority: Secondary Status: Chronic Qualifiers: Atrial fibrillation type: chronic Qualified Code(s): I48.2 - Chronic atrial fibrillation (3) COPD (chronic obstructive pulmonary disease) Priority: Secondary Status: Chronic Qualifiers: COPD type: unspecified COPD Qualified Code(s): J44.9 - Chronic obstructive pulmonary disease, unspecified (4) Hypertension Priority: Secondary Status: Chronic Qualifiers: Hypertension type: essential hypertension Qualified Code(s): I10 - Essential (primary) hypertension (5) Hypothyroid Priority: Secondary Status: Chronic Qualifiers: Hypothyroidism type: acquired Qualified Code(s): E03.9 - Hypothyroidism, unspecified - Discharge Medications Home Medications: Albuterol Sulfate [Albuterol Inhaler] 2 puff PO Q4H PRN 03/10/15 [History] Diltiazem CD (24hr) [Cardizem CD] 360 mg PO DAILY cap.er.24h 04/11/15 [Rx] Omeprazole [PriLOSEC] 40 mg PO DAILY #30 capsule. 04/11/15 [Rx] Rivaroxaban [Xarelto] 20 mg PO DAILY #30 tablet 04/11/15 [Rx] Sucralfate [Carafate] 1 gm PO QIDAC udc 07/12/15 [Rx] Docusate [Colace] 100 mg PO BID PRN #30 capsule 11/21/15 [Rx] Atorvastatin Calcium [Lipitor] 20 mg PO HS 07/12/16 [History] Calcium Carbonate/Vitamin D3 [Calcium 500 + Vit D Caplet] 1 each PO BID [History] Metoprolol [Lopressor] 100 mg PO BID tablet 07/23/16 [Rx] Levothyroxine Sodium [Levoxyl] 150 mcg PO DAILY 06/16/17 [History] Losartan Potassium [Cozaar] 50 mg PO DAILY 06/16/17 [History] Allergies/Adverse Reactions: 3 Allergy/AdvReac Type Severity Reaction Status Date / Time hydrochlorothiazide Allergy Rash Verified 06/16/17 10:47 Date of admission: 06/16/17 13:29 Primary care physician: Shy Snider Consults: 06/16/17 13:42 Consult to Surgery [CONS] Routine Consulting Provider: [facility] Reason for Consult: partial SBO Time Notified: 13:43 Call Completed: Yes 06/16/17 15:24 Consult to Pastoral Services [CONS] Routine Comment: Discharging clinician: Brenda Be Anticipated date of discharge: 06/21/17 - Patient Status Disposition: Home, Self-Care Condition: Good Functional capacity at discharge: independent ambulation Overall status at discharge: patient is back to baseline - Discharge Instructions Instructions: Bowel Obstruction (DC), Bowel Obstruction (GEN) Follow Up With: Holley Alexander DO [Primary Care Provider] - 06/27/17 9:30 am (in 1-2 weeks) - Diet and Activity Activity: increase activity as tolerated Diet: advance to your usual diet, low fat, low cholesterol, low salt diet Hospital course: Ms. Ernandez is a 82 year old female patient with history of COPD, atrial fibrillation, hypertension and hypothyroidism who was hospitalized here after presented with acute abdominal pain. CT scan done in the ER was suggestive of partial small bowel obstruction. As such she was kept nothing by mouth. NG tube was placed and surgery was consulted. Patient was managed conservatively with symptomatic care and IV hydration. She was also diagnosed with UTI and acute kidney injury which was treated with IV fluids in addition to IV antibiotics. Her renal function returned to baseline soon after and her urine cultures were negative. Patient's condition slowly improved and she underwent small bowel follow-through yesterday which was negative for any obstruction. She has since tolerated oral diet well and is clinically stable for discharge home from a surgical standpoint. She will follow up with her primary care provider for further management. - Time Spent with Patient Total time spent providing and/or coordinating discharge services: Greater than 30 minutes (32 min) - Constitutional Vitals: Temp Pulse Resp BP Pulse Ox 98.5 F 54 16 156/62 97 06/21/17 11:20 06/21/17 11:20 06/21/17 11:20 06/21/17 11:20 06/21/17 11:20 General appearance: Present: A&O X 3, answers questions appropriately - Respiratory Respiratory exam: Present: CTAB. Absent: accessory muscle use, rales, rhonchi, wheezes - Cardiovascular Cardiovascular exam: Present: RRR, +S1, +S2. Absent: diastolic murmur, gallop, rubs, systolic murmur - GI/Abdominal GI/Abdominal exam: Present: normal bowel sounds, soft, no peritoneal signs. Absent: distended, tenderness - Extremities Exam Extremities exam: Present: warm, radial pulses palpable and symmetrical. Absent : calf tenderness, cyanotic, pedal edema
[2017-06-21] MEDS ORDERED: *HR* Rivaroxaban 15 MG TABLET PO SCH (17:00)
== END 2017-06-21 12:33 | disposition home or self-care (01) | DRG 389 ==
LOC: EMEROO 10:39 → 3ANU 13:29 → SUATTDRO 13:29 → 3ANU 14:59
PROVIDERS: ADMIT Internal Medicine; ATTEND Internal Medicine

== ENCOUNTER 2017-09-16 00:50 | Inpatient (IN) ==
[2017-09-16] MEDS ORDERED: Ipratropium/Albuterol Neb 3 ML IH ONE (01:05)
[2017-09-16] MEDS ORDERED: Ondansetron 4 MG/2 ML VIAL IVP ONE (01:06)
--- NOTE | 2017-09-16 01:23 | Emergency Department Note ---
Disposition Clinical Impression: Occlusion of superior mesenteric artery, Occlusion of celiac artery, Small bowel ischemia Disposition: Admitted As Inpatient Condition: Critical Referrals: Holley Alexander DO [Primary Care Provider] - Forms: ED Satisfaction Letter Time of Disposition: 04:35 General Adult HPI - General Chief complaint: ED Upper Respiratory Infection Stated complaint: flu s/s Time Seen by Provider: 09/16/17 00:54 Source: EMS Nursing Notes Reviewed: Yes Vital Signs Reviewed: Yes - History of Present Illness HPI Narrative: Mrs. Ernandez, an 82yo female, presents from home via EMS for evaluation of dyspnea and flulike symptoms. Dyspnea onset 2-3 days ago which progressed this evening to include a productive cough and worsening dyspnea. She also notes right upper quadrant and epigastric abdominal pain. Described as constant. Patient notes she is passing quite a bit of gas. Abdominal surgical history includes bowel resection secondary to perforation with history of small bowel obstruction. As a history of pneumonia approximately 18 months ago but she is unsure how to compare that episode symptoms. She has no history of COPD or prior smoking. No history of CAD, ACS, CHF. PMH: Atrial fibrillation on xarelto. COPD, hypertension, hyperlipidemia, chronic kidney disease, hypothyroidism ROS: Positive: As above Negative: Fever, chills, nausea, vomiting, headache, chest pain, palpitations, changes in bowel or bladder, dysuria Pain Scale: 7 - Related Data Home Medications Medication Instructions Recorded Confirmed Albuterol Sulfate [Albuterol 2 puff PO Q4H PRN 03/10/15 06/16/17 Inhaler] Atorvastatin Calcium [Lipitor] 20 mg PO HS 07/12/16 06/16/17 Calcium Carbonate/Vitamin D3 1 each PO BID 07/12/16 06/16/17 [Calcium 500 + Vit D Caplet] Levothyroxine Sodium [Levoxyl] 150 mcg PO DAILY 06/16/17 06/16/17 Losartan Potassium [Cozaar] 50 mg PO DAILY 06/16/17 06/16/17 Previous Rx's Medication Instructions Recorded Diltiazem CD (24hr) [Cardizem CD] 360 mg PO DAILY cap.er.24h 04/11/15 Omeprazole [PriLOSEC] 40 mg PO DAILY #30 capsule. 04/11/15 Rivaroxaban [Xarelto] 20 mg PO DAILY #30 tablet 04/11/15 Sucralfate [Carafate] 1 gm PO QIDAC c 07/12/15 Docusate [Colace] 100 mg PO BID PRN #30 capsule 11/21/15 Metoprolol [Lopressor] 100 mg PO BID tablet 07/23/16 Allergies Allergy/AdvReac Type Severity Reaction Status Date / Time hydrochlorothiazide Allergy Rash Verified 06/16/17 10:47 All systems ED: reviewed and negative except as stated. 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 Head: atraumatic, normocephalic Eye: normal appearance, PERRL, EOMI, no scleral icterus, no conjunctival injection ENT: mucous membranes moist, normal external ear exam. Bilateral tympanic membranes pearly white with no effusion, injection, bulge, or retractions. Posterior pharynx without erythema or tonsillar exudates. Neck: normal inspection, trachea midline, full ROM Chest: normal inspection, symmetric chest rise Respiratory: Good respiratory effort. Bilateral breath sounds diffusely coarse with scattered expiratory wheeze. Cardiovascular: Regular rate and rhythm. No clicks, rubs, gallops, or murmors. Normal heart sounds. No pedal edema. Abdomen: Bowel sounds present normoactive. Abdomen is soft, nondistended, tender in RUQ and epigastrum. No guarding or rebound. Musculoskeletal: Spontaneously moving all extremities. Skin: warm, dry, intact. Neuro: Alert and oriented x4. Sensation light touch intact. Psych: Patient's affect is appropriate for situation. - General General appearance: alert Course Course Narrative: Patient presents with dyspnea believed to be secondary to AE COPD - chest x-ray is unremarkable from a pulmonary standpoint. Of greater concern, is the patient's abdominal pain. CT abd/pelvis without contrast is concerning for bowel ischemia. Looking back in the patient's chart , she has had prior history of bowel ischemia requiring resection. She has been operated on by Dr. Olivo. CTA November 2015 shows multiple areas of severe arterial stenosis specifically at the celiac origin and SMA origin. She was evaluated as an inpatient by vascular surgery in November 2015; it would seem that because her symptoms improved their intent is to follow from an outpatient basis. I discussed the patient with Dr. Olivo. We discussed and combed through the patient's past medical history and prior imaging reports. We will CTA abdomen and pelvis looking for mesenteric ischemia in the setting of her diffuse atherosclerotic plaque. Dr. Olivo is inbound. Patient remains stable. Her pain is tolerable with analgesia. Renal function is normal. Provided 1L IVF bolus after IV contrast. No elevation in lactate. Mild leukocytosis. She is anemic to Hgb 8.6; this is slightly below her baseline chronic anemia. Patient will be going to emergent surgery. Zosyn provided. 2u PRBC ordered and on hold for the OR (patieint on Xarelto). Patient to be admitted to Dr. Olivo. Going from the ER to the OR to the ICU. Chest X-Ray 09/16/17 01:06 IMPRESSION: No acute disease. D/ / Anthony Gurrola MD / Anthony Gurrola MD Interpreting Provider: Anthony Gurrola MD Abdomen/Pelvis CT 09/16/17 02:26 IMPRESSION: 1. Small bowel pneumatosis and portal venous gas consistent with bowel ischemia. 2. There has been a slight increase in the diameter of a short segment of dilated small bowel in the upper abdomen. 3. Diverticulosis without scan evidence for diverticulitis. 4. The hyperdense lesion in the left kidney is nonspecific though probably represents a hyperdense cyst. D/ / Anthony Gurrola MD / Anthony Gurrola MD Interpreting Provider: Anthony Gurrola MD OF THE ABDOMEN AND PELVIS WITH CONTRAST CT/CT angio abdomen pelvis IMPRESSION: Severe diffuse atherosclerotic plaque. There is complete occlusion of the proximal superior mesenteric artery and at the origin of the celiac artery. Otherwise no change. D/ / Anthony Gurrola MD / Anthony Gurrola MD Interpreting Provider: Anthony Gurrola MD Vital Signs Temperature 97.8 F 09/16/17 00:54 Pulse Rate 57 09/16/17 00:54 Respiratory Rate 18 09/16/17 00:54 Blood Pressure 129/61 09/16/17 00:54 O2 Sat by Pulse Oximetry 96 09/16/17 00:54 Temperature 97.8 F 09/16/17 00:54 Pulse Rate 74 09/16/17 04:00 Respiratory Rate 18 09/16/17 00:54 Blood Pressure 140/82 09/16/17 04:00 O2 Sat by Pulse Oximetry 96 09/16/17 04:00 Oxygen Delivery Oxygen Delivery Room Air Medical Decision Making - Medical Records Medical records reviewed: Yes I reviewed the patient's medical records. - Lab Data Result diagrams: 09/16/17 01:46 09/16/17 01:46 Lab Results 09/16/17 09/16/17 09/16/17 Range/Units 01:46 01:46 01:46 WBC 12.6 H (4.3-11.1) K/mcL RBC 3.38 L (3.82-4.97) M/mcL Hgb 8.6 L (11.5-15.4) g/dL Hct 28.5 L (35.3-44.9) % MCV 84.3 (83.0-100.0) fL MCH 25.4 L (28.0-33.3) pg MCHC 30.2 L (31.6-35.5) g/dL RDW 15.5 H (11.5-14.5) % Plt Count 394 (140-400) K/mcL MPV 10.2 (9.4-12.4) fL Immature Gran % 0.5 (0-4) % Seg Neutrophils % 72.4 % Lymphocytes % 21.9 % Monocytes % 4.3 % Eosinophils % 0.5 % Basophils % 0.4 % Neutrophils # 9.1 H (1.6-8.9) K/mcL Lymphocytes # 2.8 (0.6-4.6) K/mcL Monocytes # 0.5 (0.0-1.3) K/mcL Eosinophils # 0.1 (0.0-0.6) K/mcL Basophils # 0.1 (0.0-0.2) K/mcL Sodium 138 (136-145) mEq/L Potassium 4.2 (3.5-5.1) mEq/L Chloride 107 (98-107) mEq/L Carbon Dioxide 24 (23-29) mEq/L BUN 30 H (8-23) mg/dL Creatinine 1.20 (0.60-1.20) mg/dL Est GFR ( Amer) 52 L (> 60) Est GFR (Non-Af Amer) 43 L (> 60) BUN/Creatinine Ratio 25 (6-26) Glucose 158 H (70-105) mg/dL Calculated Osmolality 295 (280-300) Lactic Acid 2.1 (0.5-2.2) mmol/L Calcium 8.6 (8.6-10.3) mg/dL Total Bilirubin (0.3-1.0) mg/dL Direct Bilirubin (0.0-0.2) mg/dL Indirect Bilirubin (0.0-1.2) mg/dL AST (13-39) Units/L ALT (7-52) Units/L Alkaline Phosphatase (34-104) Units/L Serum Total Protein (6.4-8.9) g/dL Albumin (3.5-5.7) g/dL Globulin (2.4-3.5) g/dL Albumin/Globulin Ratio (1.1-2.2) Lipase (11-82) Units/L 09/16/17 Range/Units 01:46 WBC (4.3-11.1) K/mcL RBC (3.82-4.97) M/mcL Hgb (11.5-15.4) g/dL Hct (35.3-44.9) % MCV (83.0-100.0) fL MCH (28.0-33.3) pg MCHC (31.6-35.5) g/dL RDW (11.5-14.5) % Plt Count (140-400) K/mcL MPV (9.4-12.4) fL Immature Gran % (0-4) % Seg Neutrophils % % Lymphocytes % % Monocytes % % Eosinophils % % Basophils % % Neutrophils # (1.6-8.9) K/mcL Lymphocytes # (0.6-4.6) K/mcL Monocytes # (0.0-1.3) K/mcL Eosinophils # (0.0-0.6) K/mcL Basophils # (0.0-0.2) K/mcL Sodium (136-145) mEq/L Potassium (3.5-5.1) mEq/L Chloride (98-107) mEq/L Carbon Dioxide (23-29) mEq/L BUN (8-23) mg/dL Creatinine (0.60-1.20) mg/dL Est GFR ( Amer) (> 60) Est GFR (Non-Af Amer) (> 60) BUN/Creatinine Ratio (6-26) Glucose (70-105) mg/dL Calculated Osmolality (280-300) Lactic Acid (0.5-2.2) mmol/L Calcium (8.6-10.3) mg/dL Total Bilirubin 0.3 (0.3-1.0) mg/dL Direct Bilirubin 0.1 (0.0-0.2) mg/dL Indirect Bilirubin 0.2 (0.0-1.2) mg/dL AST 10 L (13-39) Units/L ALT 7 (7-52) Units/L Alkaline Phosphatase 118 H (34-104) Units/L Serum Total Protein 5.8 L (6.4-8.9) g/dL Albumin 3.2 L (3.5-5.7) g/dL Globulin 2.6 (2.4-3.5) g/dL Albumin/Globulin Ratio 1.2 (1.1-2.2) Lipase 39 (11-82) Units/L - EKG Data EKG #1 EKG attestation: Yes I reviewed and interpreted this EKG. EKG results narrative: EKG dated September 2017 at 01:38 conservative as sinus bradycardia with a rate of 53. IVCD with QTc 445. Rare PVC. Otherwise nonspecific ST-T changes. Compared to previous EKG dated 06/16/2017 showing no acute ischemic changes comparison.
[2017-09-16 01:55] LABS: Basophils # 0.1 K/mcL (0.0-0.2); Basophils % 0.4 %; Eosinophils # 0.1 K/mcL (0.0-0.6); Eosinophils % 0.5 %; Hematocrit 28.5 % (35.3-44.9); Hemoglobin 8.6 g/dL (11.5-15.4); Immature Granulocytes % 0.5 % (0-4); Lymphocytes # 2.8 K/mcL (0.6-4.6); Lymphocytes % 21.9 %; Mean Corpuscular HGB Conc 30.2 g/dL (31.6-35.5); Mean Corpuscular Hemoglobin 25.4 pg (28.0-33.3); Mean Corpuscular Volume 84.3 fL (83.0-100.0); Mean Platelet Volume 10.2 fL (9.4-12.4); Monocytes # 0.5 K/mcL (0.0-1.3); Monocytes % 4.3 %; Neutrophils # 9.1 K/mcL (1.6-8.9); Platelet Count 394 K/mcL (140-400); Red Blood Count 3.38 M/mcL (3.82-4.97); Red Cell Distribution Width 15.5 % (11.5-14.5); Segmented Neutrophils % 72.4 %
[2017-09-16 02:09] LABS: Calcium 8.6 mg/dL (8.6-10.3); Potassium 4.2 mEq/L (3.5-5.1)
[2017-09-16] MEDS ORDERED: methylPREDNISolone 125 MG/2 ML VIAL IVP ONE (02:27)
[2017-09-16] MEDS ORDERED: *HR* FentaNYL (PF) 100 MCG/2 ML VIAL IVP ONE ×2 (02:28→04:28)
--- NOTE | 2017-09-16 02:30 | Emergency Department Note ---
START Narrative - START START: I examined this patient and my medical decision-making was reviewed with the Resident Physician. I agree with the documented findings, disposition and treatment plan as described except to the extent set forth below. 82 yo F here for cough, dyspnea, flu like sx, upper abd pain, vomiting. onset 2-3 days ago. no diarrhea. no cp. pt very wheezy, rhonchi. cxr concerning for some dilated bowel. will add on CT abd pelvis likely admission
[2017-09-16 02:49] LABS: Bilirubin,Direct 0.1 mg/dL (0.0-0.2); Bilirubin,Total 0.3 mg/dL (0.3-1.0)
[2017-09-16 02:50] LABS: Albumin 3.2 g/dL (3.5-5.7); Albumin/Globulin Ratio 1.2 (1.1-2.2); Bilirubin,Indirect 0.2 mg/dL (0.0-1.2); Globulin 2.6 g/dL (2.4-3.5); Total Protein 5.8 g/dL (6.4-8.9)
[2017-09-16] MEDS ORDERED: 0.9 % Sodium Chloride 1,000 ML IVC ONE (03:23)
[2017-09-16] MEDS ORDERED: *HR* LORazepam 2 MG/ML VIAL IVP ONE (04:27)
[2017-09-16] MEDS ORDERED: Piperacillin/Tazobactam 3.375 GM in Water for inj. (sterile) 20 ML 20 ML IVPB STA (04:29)
--- NOTE | 2017-09-16 04:36 | General Surg History&Physical ---
Date of Encounter: 09/16/17 Time of Encounter: 04:33 Assessment and Plan (1) Atrial fibrillation Current Visit: No Status: Chronic The assessment and plan as outlined above was discussed with the patient and/or family members who expressed understanding and agreement. All questions were answered. patient took xeralto yesterday am, will hold currently Qualifiers: Atrial fibrillation type: chronic Qualified Code(s): I48.2 - Chronic atrial fibrillation (2) COPD (chronic obstructive pulmonary disease) Current Visit: No Status: Chronic The assessment and plan as outlined above was discussed with the patient and/or family members who expressed understanding and agreement. All questions were answered. aggressive pulmonary toilet Qualifiers: COPD type: unspecified COPD Qualified Code(s): J44.9 - Chronic obstructive pulmonary disease, unspecified (3) GERD (gastroesophageal reflux disease) Current Visit: No Status: Chronic The assessment and plan as outlined above was discussed with the patient and/or family members who expressed understanding and agreement. All questions were answered. continue iv ppi Qualifiers: Esophagitis presence: esophagitis presence not specified Qualified Code(s) : K21.9 - Gastro-esophageal reflux disease without esophagitis (4) Hypertension Current Visit: No Status: Chronic The assessment and plan as outlined above was discussed with the patient and/or family members who expressed understanding and agreement. All questions were answered. hold home po meds currently, will have prn medication available, schedule lopressor, monitor BP Qualifiers: Hypertension type: essential hypertension Qualified Code(s): I10 - Essential (primary) hypertension (5) Abdominal pain Current Visit: No Status: Acute The assessment and plan as outlined above was discussed with the patient and/or family members who expressed understanding and agreement. All questions were answered. prn pain medication Qualifiers: Abdominal location: generalized Qualified Code(s): R10.84 - Generalized abdominal pain (6) Pneumatosis of intestines Current Visit: No Status: Acute The assessment and plan as outlined above was discussed with the patient and/or family members who expressed understanding and agreement. All questions were answered. discussed results of CT and CTA with patient and her son. She only has about 114 cm of small bowel left from her previous mesenteric vascular accident and ex lap/sbr. I have discussed that there is a potential that once we evaluate the and the extent of the ischemia that she may not have enough viable small bowel left that is compatible with life. Discussed the real potential risk she may not survive this hospital admission. She and her son expressed understanding. discussed she is at high risk of bleeding complications due to her being on xeralto and the emergent need for the OR. Will plan exploratory laparotomy, possible bowel resection, risks and benefits discussed with patient and her son, she wishes to proceed. npo ivf hydration zosyn per ED 2 units prbc type and cross prn pain control prn antiemetics (7) Occlusion of celiac artery Current Visit: Yes Status: Chronic The assessment and plan as outlined above was discussed with the patient and/or family members who expressed understanding and agreement. All questions were answered. depending on length of small bowel effected and resection need, if compatible with life will consult vascular (8) Occlusion of superior mesenteric artery Current Visit: Yes Status: Chronic The assessment and plan as outlined above was discussed with the patient and/or family members who expressed understanding and agreement. All questions were answered. depending on length of small bowel effected and resection need, if compatible with life will consult vascular (9) Hypothyroid Current Visit: No Status: Chronic The assessment and plan as outlined above was discussed with the patient and/or family members who expressed understanding and agreement. All questions were answered. continue IV synthroid Qualifiers: Hypothyroidism type: acquired Qualified Code(s): E03.9 - Hypothyroidism, unspecified (10) Leukocytosis Current Visit: No Status: Acute The assessment and plan as outlined above was discussed with the patient and/or family members who expressed understanding and agreement. All questions were answered. zosyn, trend Qualifiers: Leukocytosis type: unspecified Qualified Code(s): D72.829 - Elevated white blood cell count, unspecified History of Present Illness Chief complaint: abdominal pain HPI: Ms. Ernandez is a 82 year old female who presents to ED with acute onset upper mid abdominal pain beginning about 930 pm last evening. She states the pain is sharp and constant without radiation. She has had several episodes of nausea and emesis. She had several loose bm's earlier yesterday (often her norm). She denies any melena or hematochezia. No fevers, chills or night sweats. She is on xeralto for atrial fibrillation. She had small bowel ischemia with small bowel and underwent an exploratory laparotomy with small bowel resection 4.8.16. She was left with an estimated 114 cm of small bowel. Today she has had a CT of the abdomen and pelvis which showed small bowel ischemia and portal venous gas consistent with small bowel ischemia. CTA was done which showed occlusion of celiac and SMA, patent KALIE. 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 wbc 12.6, Hb 8.6, Cr 1.2 Past Med Surg Social Fam HX - Past Medical History Source: patient Medical history: arthritis, atrial fibrillation, COPD, hyperlipidemia, hypertension, osteoporosis, renal disease, thyroid disease (hypothryroid), other (mesenteric vascular disease) Psychiatric history: no psych history - Past Surgical History Surgical History: orthopedic, other (left total knee replacement 2014), other ( exploratory laparotomy, small bowel resection, appendectomy) - Social History Smoking Status: Former smoker Smokeless Tobacco Status: No Alcohol use: none Drug use: none Occupational status: retired Current living situation: Home, With Family - Family History Father Adopted: No Family Member Ethnicity: Non- Living Status: Hx Family Cardiac Disorders: No Hx Family Respiratory Disorders: Yes (emphysema) Hx Family Cancer: No Hx Family GI Disorders: No Hx Family Endocrine Disorder: No Hx Family Neuromuscular Disorders: No Hx Family Neurologic Disorders: No Hx Family HEENT Disorders: No Hx Family Autoimmune Disorders: No Mother Adopted: No Living Status: Hx Family Cardiac Disorders: Yes Medications and Allergies Albuterol Sulfate [Albuterol Inhaler] 2 puff PO Q4H PRN 03/10/15 [History] Diltiazem CD (24hr) [Cardizem CD] 360 mg PO DAILY cap.er.24h 04/11/15 [Rx] Omeprazole [PriLOSEC] 40 mg PO DAILY #30 capsule.dr 04/11/15 [Rx] Rivaroxaban [Xarelto] 20 mg PO DAILY #30 tablet 04/11/15 [Rx] Sucralfate [Carafate] 1 gm PO QIDAC udc 07/12/15 [Rx] Docusate [Colace] 100 mg PO BID PRN #30 capsule 11/21/15 [Rx] Atorvastatin Calcium [Lipitor] 20 mg PO HS 07/12/16 [History] Calcium Carbonate/Vitamin D3 [Calcium 500 + Vit D Caplet] 1 each PO BID [History] Metoprolol [Lopressor] 100 mg PO BID tablet 07/23/16 [Rx] Levothyroxine Sodium [Levoxyl] 150 mcg PO DAILY 06/16/17 [History] Losartan Potassium [Cozaar] 50 mg PO DAILY 06/16/17 [History] 3 Allergy/AdvReac Type Severity Reaction Status Date / Time hydrochlorothiazide Allergy Rash Verified 06/16/17 10:47 Review of Systems All systems PM: reviewed and no additional remarkable complaints except as stated All systems PM: A 10-system review of systems was performed and is negative for pertinent findings except as documented above in the HPI. General Surgery Exam Initial Vital Signs Temp Pulse Resp BP Pulse Ox 97.8 F 57 18 129/61 96 09/16/17 00:54 09/16/17 00:54 09/16/17 00:54 09/16/17 00:54 09/16/17 00:54 - General physical appearance well developed, moderate distress, moderate pain - Eyes PERRL, normal ocular movement - ENT normal mucosa, normocephalic - Neck trachea midline - Respiratory normal expansion, normal respiratory effort - Cardiovascular Cardiovascular exam: Present: RRR - Abdomen Abdomen general surgery: Present: soft, distended, tender (moderately diffusely but increased pain to palpation upper abdomen), guarding (voluntary), rebound. Absent: bowel sounds present Hernia: Present: incisional - Integumentary Integumentary general surgery: Present: other (pale) - Neurologic Present: CN 2-12 grossly intact - Musculoskeletal Present: normal posture - Psychiatric Psychiatric general surgery: Present: A&Ox3, speech is normal Results - Labs 09/16/17 01:46 09/16/17 01:46 Short CBC 09/16/17 Range/Units 01:46 WBC 12.6 H (4.3-11.1) K/mcL Hgb 8.6 L (11.5-15.4) g/dL Hct 28.5 L (35.3-44.9) % Plt Count 394 (140-400) K/mcL Neutrophils # 9.1 H (1.6-8.9) K/mcL BMP 09/16/17 Range/Units 01:46 Sodium 138 (136-145) mEq/L Potassium 4.2 (3.5-5.1) mEq/L Chloride 107 (98-107) mEq/L Carbon Dioxide 24 (23-29) mEq/L BUN 30 H (8-23) mg/dL Creatinine 1.20 (0.60-1.20) mg/dL Glucose 158 H (70-105) mg/dL Calcium 8.6 (8.6-10.3) mg/dL Liver Function 09/16/17 Range/Units 01:46 Total Bilirubin 0.3 (0.3-1.0) mg/dL Direct Bilirubin 0.1 (0.0-0.2) mg/dL AST 10 L (13-39) Units/L ALT 7 (7-52) Units/L Alkaline Phosphatase 118 H (34-104) Units/L Albumin 3.2 L (3.5-5.7) g/dL Vital Signs Temp Pulse Resp BP Pulse Ox 09/16/17 04:00 74 140/82 96 09/16/17 03:00 66 152/74 95 09/16/17 02:00 58 144/61 95 09/16/17 01:00 60 133/86 96 09/16/17 00:54 97.8 F 57 18 129/61 96 Intake and Output 09/15/17 09/15/17 09/16/17 15:59 23:59 07:59 Intake Total 1000 / 1000 Balance 1000 / 1000 Intake: IV Fluids 1000 / 1000 0.9 % Sodium Chloride 1,000 ML 1000 / 1000 @ 3750 mls/hr IVC .Q16M ONE Rx# :[id number] Other: Weight 79.379 kg Patient Weight 09/16/17 23:59 Weight 79.379 kg - Imaging CT scan - abdomen: report reviewed, image reviewed CT scan - pelvis: report reviewed, image reviewed (CTA abd/pelvis images reviewed as well as report)
[2017-09-16 04:39] LABS: INR 2.3; Prothrombin Time 24.8 Seconds (9.4-12.1)
--- NOTE | 2017-09-16 05:05 | Anesthesia Evaluation PreOp ---
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 Significant HX Other Medical History: Thyroid, GERD Anesthesia History: No Prior Anesthetic Complications, Past Anesthesia Alcohol Use: none Drug use: none Medications and Allergies Albuterol Sulfate [Albuterol Inhaler] 2 puff PO Q4H PRN 03/10/15 [History] Diltiazem CD (24hr) [Cardizem CD] 360 mg PO DAILY cap.er.24h 04/11/15 [Rx] Omeprazole [PriLOSEC] 40 mg PO DAILY #30 capsule.dr 04/11/15 [Rx] Rivaroxaban [Xarelto] 20 mg PO DAILY #30 tablet 04/11/15 [Rx] Sucralfate [Carafate] 1 gm PO QIDAC udc 07/12/15 [Rx] Docusate [Colace] 100 mg PO BID PRN #30 capsule 11/21/15 [Rx] Atorvastatin Calcium [Lipitor] 20 mg PO HS 07/12/16 [History] Calcium Carbonate/Vitamin D3 [Calcium 500 + Vit D Caplet] 1 each PO BID [History] Metoprolol [Lopressor] 100 mg PO BID tablet 07/23/16 [Rx] Levothyroxine Sodium [Levoxyl] 150 mcg PO DAILY 06/16/17 [History] Losartan Potassium [Cozaar] 50 mg PO DAILY 06/16/17 [History] 3 Allergy/AdvReac Type Severity Reaction Status Date / Time hydrochlorothiazide Allergy Rash Verified 06/16/17 10:47 - Meds/Allergy Pre-op Review Medications Reviewed: Yes Allergies Reviewed: Yes Beta Blockers on Current Med List: Yes If Beta Blockers taken, Date/Time (Last Dose taken): 09/15/2017 at 0900 Anesthesia Results - Labs 09/16/17 01:46 09/16/17 01:46 - Imaging EKG: report reviewed (06/16/2017 SINUS RHYTHM) Additional studies: 11/14/2015 CHANELL Impressions: There are thin, filiform structures at the sites of aortic valve closure that give the appearance of lambl's excrescence. Attached to the frond on the LCC is a small round calcified echodensity that moves with the filiform structure. Recommend clinical correlation. Normal left ventricular size and systolic function. Normal right ventricular size and function. Calcified plaquing of the proximal ascending and descending thoracic aorta. 04/09/2015 Echo Impressions: Atrial fibrillation with RVR. LVEF 60%. There is atypical septal motion consistent with bundle branch block. Indeterminate diastolic function due to atrial fibrillation. Normal right ventricular structure and function. Mildly dilated left atrium. No significant valvular dysfunction. No evidence of pulmonary hypertension. Anesthesia Exam Vital Signs/O2 Sat, Most Current Temp Pulse Resp BP Pulse Ox 97.8 F 74 18 140/82 96 09/16/17 00:54 09/16/17 04:00 09/16/17 00:54 09/16/17 04:00 09/16/17 04:00 Height: 5'4''/1.63 m Weight: 175 lbs/79 4 kg NPO (# of Hours): 8 Pain Scale: 3 (abdomen) Pain Scale Used: Numeric (1 - 10) - HEENT Pupil (Motor): EOMI Mallampati: III Teeth: Edentulous Oral Opening: Greater than 3 - PRINTING ASSISTANT LOC: Oriented PRINTING ASSISTANT Motor: Normal RUE, Normal LUE, Normal RLE, Normal LLE, Normal Face PRINTING ASSISTANT Sensory: Normal: RUE, LUE, RLE, LLE, Face - Cardiac Rhythm: Regular Murmur: None - Pulmonary Breath Sounds: bilateral Clear Respiratory Effort: Symmetrical Anesthesia Assess/Plan ASA Score: 3 Modified [place] Scale for Level of Consciousness: Cooperative, oriented, and tranquil Anesthetic Plan: General Monitoring Plan: Standard Monitors Recovery Plan: PACU
[2017-09-16] MEDS ORDERED: *HR* Propofol 200 MG/20 ML VIAL IVP ONE (05:09)
[2017-09-16] MEDS ORDERED: *HR* FentaNYL (PF) 100 MCG/2 ML VIAL ONE (05:09)
[2017-09-16] MEDS ORDERED: Lidocaine -MPF 2% 2 ML VIAL ONE (05:13)
[2017-09-16] MEDS ORDERED: *HR* Succinylcholine 200 MG/10 ML VIAL IVP ONE (05:13)
[2017-09-16] MEDS ORDERED: *HR* Rocuronium Bromide 50 MG/5 ML VIAL ONE (05:13)
--- NOTE | 2017-09-16 06:41 | Electrocardiograph Report ---
[address] [place], [place] [address] Test Date: 2017-09-16 Pat Name: Angie Ernandez Department: 102 Room: [facility] Gender: F Fugitive Detective: Capri : 1935 Requested By: Joao Muniz Order Number: [id number] Reading MD: Eddie Lancaster MD Measurements Intervals [place] Rate: 53 P: 66 SC: 141 QRS: 32 QRSD: 87 T: 46 QT: 462 QTc: 445 Interpretive Statements SINUS BRADYCARDIA WITH OCCASIONAL SUPRAVENTRICULAR PREMATURE COMPLEXES BASELINE ARTIFACT COMPLICATES ACCURATE INTERPRETATION Electronically Signed On 09-16-2017 6:39:29 EST by Eddie Lancaster MD
--- NOTE | 2017-09-16 07:09 | Operative Note ---
Date of procedure: 09/16/17 Pre-op diagnosis: small bowel pneumatosis, portal venous gas Post-op diagnosis: other (same and small bowel ischemia/necrosis) Procedure: Exploratory laparotomy, small bowel resection, placement abthera abdominal closure wound vac Complications: none immediate Anesthesia: GETA Surgeon: Jennifer Olivo Was there an assistant professor of communication present: Yes Informatics Pharmacist: Katerina Mera Estimated blood loss (cc): 3 Specimen: small bowel Condition: stable Disposition: PACU Procedure in Detail: patient with ~105 cm remaining small bowel Patient was brought to the operating suite and placed supine on the operating table. The tendon was performed and everyone was in agreement. Anesthesia was induced and patient was endotracheally intubated by anesthesia without incident. Anesthesia placed an NG-tube and the circulating nurse placed a Santana catheter. The abdomen was prepped and draped in the usual sterile fashion. Timeout was performed again and everyone was in agreement. An upper midline incision through the skin into the subcutaneous tissue was made with a 10 blade. We dissected through the subcutaneous tissue to the anterior abdominal wall fascia with the Bovie. The patient had an upper midline incisional hernia which was entered with gentle blunt dissection and the fascial incision elongated. Small bowel was eviscerated and the small bowel proximal and distal to her previous small bowel anastomosis was ischemic and the small bowel anastomosis was dilated. The small bowel was run from the ligament of Treitz down to the terminal ileum. There were no small bowel adhesions. Using a ruler to measure, approximately 10 cm of small bowel terminal ileum adjacent to the cecum was viable and beginning at the ligament of Treitz running the small bowel distally approximately 105 cm of small bowel appears to be viable. The proximal small bowel is mildly dilated with out any areas of obvious ischemia (the bowel is NOT dusky) but does not appear as pink and healthy as the most distal small bowel. An area just proximal to the ischemic small bowel was chosen for transection and an opening in the mesentery beneath this was made with the Bovie. The small bowel was transected with a linear KENROY-75 stapler using a blue load. The small bowel just distal to the ischemic small bowel was chosen for transection and an opening in the mesentery was made with the Bovie and the small bowel was transected with the linear KENROY- 75 stapler using a blue load. The ischemic small bowel was taken off the mesentary with the impact Ligasure. The abdomen was irrigated with 2 L of warm sterile saline. The ngt was palpated to be in the distal body of the stomach and was secured in place by anesthesia. An abthera wound vac was trimmed and placed into the abdomen and two trimmed pieces of small bowel were placed in the subcutaneous space. The plastic dressing was placed as well as the suction to the wound vac at 125 mmHg continuous suction. The santana catheter and ngt remained with the patient. All lap and eventually counts were correct at the end the case. The patient tolerated the procedure well. She was not awaken nor extubated by anesthesia in the operating suite. She was taken directly to ICU.
--- NOTE | 2017-09-16 07:19 | Operative Note ---
Procedure in Detail: patient with ~105 cm remaining small bowel
[2017-09-16] MEDS ORDERED: Ondansetron 4 MG/2 ML VIAL IVP PRN (07:28)
[2017-09-16] MEDS ORDERED: Lacri-Lube 3.5 GM TUBE BOTH EYES PRN (07:28)
[2017-09-16] MEDS ORDERED: 0.9 % Sodium Chloride 1,000 ML IVC SCH (07:28)
[2017-09-16] MEDS ORDERED: Naloxone 0.4 MG/ML INJ IVP PRN (07:28)
--- NOTE | 2017-09-16 07:57 | Pulmonology Consult Note ---
<Cj Chen - Last Filed: 09/16/17 11:10> Date of Encounter: 09/16/17 Time of Encounter: 07:57 Assessment and Plan (1) Ischemia of small intestine Current Visit: Yes Status: Acute Patient was noted to have bowel ischemia on CTA of her abdomen and pelvis overnight. The patient was taken to the operating room where she had a small bowel resection. The patient currently is awaiting renal anastomosis and on wound VAC with an open abdomen and midline. Patient tolerated procedure well. We will continue to monitor the patient's abdomen as surgery is the patient's primary and they will be on the case. We will repeat the patient's lactic acid continue to monitor patient's vascular status. The patient was previously on Xarelto for atrial fibrillation. The patient has numerous occluded vessels including the SMA and celiac as well as severe stenosis of the patient's right renal artery. Vascular surgery has been consulted. After discussing anticoagulation and plan with general surgery, Dr. Olivo, she stated that EP CDs would be appropriate at this time for bilateral lower extremities as the patient took her Xarelto yesterday. In addition we will discuss case with vascular surgery about any further recommendations. The patient will likely go back to the operating room tomorrow morning. 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 Patient is on Xarelto for anticoagulation. Qualifiers: Atrial fibrillation type: chronic Qualified Code(s): I48.2 - Chronic atrial fibrillation (7) Chronic kidney disease Current Visit: No Status: Chronic We will continue to monitor the patient's renal function. Qualifiers: Chronic kidney disease stage: stage 2 (mild) Qualified Code(s): N18.2 - Chronic kidney disease, stage 2 (mild) (8) COPD (chronic obstructive pulmonary disease) Current Visit: No Status: Chronic Qualifiers: COPD type: unspecified COPD Qualified Code(s): J44.9 - Chronic obstructive pulmonary disease, unspecified History of Present Illness Consult date: 09/16/17 Requesting physician: Jennifer Olivo Reason for consult: other Chief complaint: Critical care management of surgical patient, small bowel ischemia History of present illness: 82-year-old male with extensive history of vascular disease including previous mesenteric ischemia, atrial fibrillation on Xarelto arrives to [facility] emergency department after the patient was complaining of epigastric discomfort that started at roughly 9:30 PM 1 day ago. The patient came to the emergency department and was evaluated with a CT scan which demonstrated air within the small bowel wall consistent with bowel ischemia. A CTA was performed which revealed a occlusion of the patient's SMA, celiac and right renal arteries. There was a large amount of ischemic bowel as well. The patient was subsequently taken to the operating room for bowel resection. The patient currently had her abdomen left open for likely re-anastomosis at later time. Laboratory revealed no elevation in the patient's lactic acid and minimally elevated white blood cell count. Patient's renal function demonstrates mild decrease in GFR but no effecting creatinine at this time. The patient had a previous history of bowel resection roughly 2 years ago performed by same surgeon. The patient had roughly 114 cm of bowel left from this time. During surgery she had a other portion of her bowel removed. Again she has a wound VAC in place on the abdominal wall that was left open. Patient is currently intubated and sedated. Past Med Surg Social Fam HX - Past Medical History Source: old records reviewed Medical history: arthritis, atrial fibrillation, COPD, hyperlipidemia, hypertension, osteoporosis, renal disease, thyroid disease (hypothryroid), other (mesenteric vascular disease) Psychiatric history: no psych history - Past Surgical History Surgical History: orthopedic, other (left total knee replacement 2014), other ( exploratory laparotomy, small bowel resection, appendectomy) - Social History Smoking Status: Former smoker Smokeless Tobacco Status: No Alcohol use: none Drug use: none - Family History Father Adopted: No Family Member Ethnicity: Non- Living Status: Hx Family Cardiac Disorders: No Hx Family Respiratory Disorders: Yes (emphysema) Hx Family Cancer: No Hx Family GI Disorders: No Hx Family Endocrine Disorder: No Hx Family Neuromuscular Disorders: No Hx Family Neurologic Disorders: No Hx Family HEENT Disorders: No Hx Family Autoimmune Disorders: No Mother Adopted: No Living Status: Hx Family Cardiac Disorders: Yes Medications and Allergies Albuterol Sulfate [Albuterol Inhaler] 2 puff PO Q4H PRN 03/10/15 [History] Diltiazem CD (24hr) [Cardizem CD] 360 mg PO DAILY cap.er.24h 04/11/15 [Rx] Omeprazole [PriLOSEC] 40 mg PO DAILY #30 capsule. 04/11/15 [Rx] Rivaroxaban [Xarelto] 20 mg PO DAILY #30 tablet 04/11/15 [Rx] Sucralfate [Carafate] 1 gm PO QIDAC udc 07/12/15 [Rx] Docusate [Colace] 100 mg PO BID PRN #30 capsule 11/21/15 [Rx] Atorvastatin Calcium [Lipitor] 20 mg PO HS 07/12/16 [History] Calcium Carbonate/Vitamin D3 [Calcium 500 + Vit D Caplet] 1 each PO BID [History] Metoprolol [Lopressor] 100 mg PO BID tablet 07/23/16 [Rx] Levothyroxine Sodium [Levoxyl] 150 mcg PO DAILY 06/16/17 [History] Losartan Potassium [Cozaar] 50 mg PO DAILY 06/16/17 [History] 3 Allergy/AdvReac Type Severity Reaction Status Date / Time hydrochlorothiazide Allergy Rash Verified 06/16/17 10:47 ROS unobtainable: due to endotracheal tube All Systems: A 10-system review of systems was performed and is negative for pertinent findings except as documented above in the HPI. Physical Examination Vital Signs: Vital Signs, Last 4 Hours Resp BP Pulse Ox 09/16/17 07:32 16 187/86 98 09/16/17 05:23 18 176/77 General appearance: other (Patient intubated and sedated) Eyes: nonicteric ENT: oropharynx moist Effort: other (On ventilator) Auscultation: bilateral: clear Cardiovascular: regular rate and rhythm Gastrointestinal: non-distended, other (Patient has a midline incision with wound VAC in place. No active bleeding at this time. Dressing and wound VAC in place) Extremities: no cyanosis, no edema, pulses normal Musculoskeletal: no deformities other (Patient currently sedated) Ventilator Settings Ventilator Settings: Ventilator Settings, Last 8 Hours Ventilator Mode A/C Ventilator Tidal Volume 450 Setting Ventilator Respiratory Rate 14 Setting Actual Respiratory Rate 17 Positive End Expiratory 5 Pressure Peak Inspiratory Airway 26 Pressure Results - Laboratory Findings CBC and BMP: 09/16/17 01:46 09/16/17 01:46 PT/INR, D-dimer PT 24.8 Seconds (9.4-12.1) H 09/16/17 03:59 Abnormal lab findings: Abnormal lab results WBC 12.6 K/mcL (4.3-11.1) H 09/16/17 01:46 RBC 3.38 M/mcL (3.82-4.97) L 09/16/17 01:46 Hgb 8.6 g/dL (11.5-15.4) L 09/16/17 01:46 Hct 28.5 % (35.3-44.9) L 09/16/17 01:46 MCH 25.4 pg (28.0-33.3) L 09/16/17 01:46 MCHC 30.2 g/dL (31.6-35.5) L 09/16/17 01:46 RDW 15.5 % (11.5-14.5) H 09/16/17 01:46 Neutrophils # 9.1 K/mcL (1.6-8.9) H 09/16/17 01:46 PT 24.8 Seconds (9.4-12.1) H 09/16/17 03:59 BUN 30 mg/dL (8-23) H 09/16/17 01:46 Est GFR ( Amer) 52 (> 60) L 09/16/17 01:46 Est GFR (Non-Af Amer) 43 (> 60) L 09/16/17 01:46 Glucose 158 mg/dL (70-105) H 09/16/17 01:46 POC Glucose 144 (58-89) H 09/16/17 07:34 AST 10 Units/L (13-39) L 09/16/17 01:46 Alkaline Phosphatase 118 Units/L (34-104) H 09/16/17 01:46 Serum Total Protein 5.8 g/dL (6.4-8.9) L 09/16/17 01:46 Albumin 3.2 g/dL (3.5-5.7) L 09/16/17 01:46 - Clinical Findings Intake & Output: Intake & Output 09/15/17 09/15/17 09/16/17 15:59 23:59 07:59 Output Total 3 / 3 Balance - Consult Discharge Plan - Plan Referrals: Holley Alexander DO [Primary Care Provider] - - Attending Attestation I examined this patient and my medical decision-making was reviewed with the Resident Physician. I agree with the documented findings, disposition and treatment plan as described except to the extent set forth below. <EmelinaoswaldoChris magana W - Last Filed: 09/16/17 11:45> Date of Encounter: 09/16/17 All Systems: A 10-system review of systems was performed and is negative for pertinent findings except as documented above in the HPI. Physical Examination Vital Signs: Vital Signs, Last 4 Hours Pulse Resp BP Pulse Ox 09/16/17 11:14 14 159/80 100 09/16/17 10:37 14 145/67 100 09/16/17 10:00 60 14 145/67 100 09/16/17 09:06 14 158/68 100 09/16/17 09:00 62 14 149/72 100 09/16/17 08:00 72 16 173/92 100 09/16/17 07:45 73 Ventilator Settings Ventilator Settings: Ventilator Settings, Last 8 Hours Ventilator Mode A/C Ventilator Mode A/C Ventilator Mode A/C Ventilator Mode A/C Ventilator Tidal Volume 450 Setting Ventilator Tidal Volume 450 Setting Ventilator Tidal Volume 450 Setting Ventilator Tidal Volume 450 Setting Ventilator Respiratory Rate 14 Setting Ventilator Respiratory Rate 14 Setting Ventilator Respiratory Rate 14 Setting Ventilator Respiratory Rate 14 Setting Actual Respiratory Rate 14 Actual Respiratory Rate 14 Actual Respiratory Rate 17 Positive End Expiratory 5 Pressure Positive End Expiratory 5 Pressure Positive End Expiratory 5 Pressure Positive End Expiratory 5 Pressure Peak Inspiratory Airway 24 Pressure Peak Inspiratory Airway 26 Pressure Peak Inspiratory Airway 26 Pressure Results - Laboratory Findings CBC and BMP: 09/16/17 01:46 09/16/17 01:46 ABG ABG pH 7.35 pH Units (7.32-7.45) 09/16/17 08:11 ABG pCO2 43 mmHg (35-45) 09/16/17 08:11 ABG pO2 123 mmHg (85-104) H 09/16/17 08:11 ABG O2 Saturation 99 % (95-98) H 09/16/17 08:11 PT/INR, D-dimer PT 24.8 Seconds (9.4-12.1) H 09/16/17 03:59 Abnormal lab findings: Abnormal lab results WBC 12.6 K/mcL (4.3-11.1) H 09/16/17 01:46 RBC 3.38 M/mcL (3.82-4.97) L 09/16/17 01:46 Hgb 8.6 g/dL (11.5-15.4) L 09/16/17 01:46 Hct 28.5 % (35.3-44.9) L 09/16/17 01:46 MCH 25.4 pg (28.0-33.3) L 09/16/17 01:46 MCHC 30.2 g/dL (31.6-35.5) L 09/16/17 01:46 RDW 15.5 % (11.5-14.5) H 09/16/17 01:46 Neutrophils # 9.1 K/mcL (1.6-8.9) H 09/16/17 01:46 PT 24.8 Seconds (9.4-12.1) H 09/16/17 03:59 ABG pO2 123 mmHg (85-104) H 09/16/17 08:11 ABG O2 Saturation 99 % (95-98) H 09/16/17 08:11 BUN 30 mg/dL (8-23) H 09/16/17 01:46 Est GFR ( Amer) 52 (> 60) L 09/16/17 01:46 Est GFR (Non-Af Amer) 43 (> 60) L 09/16/17 01:46 Glucose 158 mg/dL (70-105) H 09/16/17 01:46 POC Glucose 144 (58-89) H 09/16/17 07:34 AST 10 Units/L (13-39) L 09/16/17 01:46 Alkaline Phosphatase 118 Units/L (34-104) H 09/16/17 01:46 Serum Total Protein 5.8 g/dL (6.4-8.9) L 09/16/17 01:46 Albumin 3.2 g/dL (3.5-5.7) L 09/16/17 01:46 - Clinical Findings Intake & Output: Intake & Output 09/15/17 09/16/17 09/16/17 23:59 07:59 15:59 Output Total Balance - Weight 79.4 kg - Attending Attestation I examined this patient and my medical decision-making was reviewed with the Resident Physician. I agree with the documented findings, disposition and treatment plan as described except to the extent set forth below. We independently had [id number] contact with the patient Patient seen and examined at bedside Labs, radiology, chart personally reviewed. Management was reviewed during multidisciplinary critical care rounds. CLINICAL DOCUMENTATION MANAGER: Sedated on vent continue analgesia and Precedex for agitation goal [place] 2 -3 Pulm: Intubated for planned procedure remain intubated because of planned revision in the OR within 24 hours acceptable gas exchange on vent history of COPD and CHF continue low tidal volume ventilatory strategy schedule bronchodilators does not appear to have exacerbation of COPD at this time chest x-ray pending Cards: Presented with acute mesenteric ischemia status post small bowel partial resection with planned revision within 24 hours history of atrial fibrillation rate controlled hypertension blood pressure high today starting beta lina via IV. Vascular surgery consult pending for severe atherosclerosis of the abdominal arterial circulation. ECG without evidence of cardiac ischemia troponin within normal limits FEN-GI: Nothing by mouth for now GI prophylaxis given Renal: Urine output monitored monitor serum creatinine ID: Leukocytosis normal lactate treating broadly for concern of ischemic colitis with Pip/Tazo cultures pending with plan to de-escalate Heme/Onc: SCDs. Holding anticoagulation for atrial fibrillation acutely will start once cleared by surgery Endo: Glucose Monitored Integ/MSK: Skin Care per routine ICU Nursing Protocol to prevent ulcers. Lines: All lines examined without evidence of infection : Dispo: ICU for vent management overall prognosis guarded CODE: Full
[2017-09-16 08:14] LABS: ABG Base Excess -2 mEq/L (-2 to 3); ABG HCO3 23 mEq/L (21-27); ABG Oxygen Saturation 99 % (95-98); ABG PCO2 43 mmHg (35-45); ABG PH 7.35 pH Units (7.32-7.45); ABG PO2 123 mmHg (85-104); ABG TCO2 25 mEq/L (20-26); Blood Gas Modality ASSIST CONTROL; Blood Gas PEEP 5 cm H2O; Blood Gas Respiration Rate 14; Blood Gas VT 450 cc
[2017-09-16] MEDS ORDERED: FentaNYL (PF) 1,000 MCG in 0.9 % Sodium Chloride 80 ML IVC SCH (08:15)
[2017-09-16] MEDS ORDERED: Levothyroxine Sodium 100 MCG VIAL IVP SCH (09:00)
[2017-09-16] MEDS ORDERED: Pantoprazole 40 MG VIAL IVP SCH (09:00)
[2017-09-16] MEDS ORDERED: Chlorhexidine Rinse 15 ML MOUTHWASH MM SCH (09:00)
[2017-09-16] MEDS ORDERED: Furosemide 20 MG/2 ML VIAL IVP SCH (09:00)
[2017-09-16] MEDS: Lacri-Lube 3.5 GM TUBE BOTH EYES SCH ×3 (09:00→16:38)
--- NOTE | 2017-09-16 09:58 | Electrocardiograph Report ---
[address] [place] [address] Test Date: 2017-09-16 Pat Name: Angie Ernandez Department: 109 Room: [facility] Gender: F Horse Groomer: BEVERLY : 1935 Requested By: Cj Chen Order Number: [id number] Reading MD: Karishma Rowe Measurements Intervals [place] Rate: 69 P: 66 AL: 159 QRS: 50 QRSD: 90 T: 44 QT: 411 QTc: 431 Interpretive Statements SINUS RHYTHM Electronically Signed On 09-16-2017 9:57:10 EST by Karishma Rowe
[2017-09-16] MEDS: Ipratropium/Albuterol Neb 3 ML IH SCH ×2 (10:37→15:34)
[2017-09-16] MEDS ORDERED: Dexmedetomidine HCl 400 MCG/100 ML MLS IVC SCH (11:15)
[2017-09-16] MEDS: *HR* Metoprolol 5 MG/5 ML VIAL IVP SCH ×2 (11:32→17:26)
[2017-09-16] MEDS ORDERED: Dexmedetomidine HCl 200 MCG/50 ML MLS IVC SCH (11:45)
[2017-09-16 11:56] LABS: Magnesium 1.7 mg/dL (1.6-2.6)
[2017-09-16] MEDS ORDERED: D10% in Water 500 ML IVC PRN (12:43)
[2017-09-16] MEDS ORDERED: Lidocaine -MPF 1% 5 ML AMPUL INFILT ONE (13:53)
--- NOTE | 2017-09-16 13:53 | Event Note ---
Date of Encounter: 09/16/17 Time of Encounter: 13:51 I have called [facility] small bowel transplant physician Mohsen Cardenas and discussed patients case with him. Given concern for patients limited length of small bowel and her severe mesenteric vascular disease we will transfer patient to his service at [facility]. I have personally called patients son and discussed with him and he is in agreement. CCM attending has been notified
--- NOTE | 2017-09-16 16:30 | Event Note ---
Date of Encounter: 09/16/17 Time of Encounter: 15:45 Mrs. Ernandez is an 82-year-old white female that was admitted early this morning via the emergency room for abdominal pain and dyspnea. She was taken to the operating room as an emergency by Dr. Olivo this morning and had an exploratory laparotomy with resection of small bowel. She had had a similar event in November 2015. The patient has been stable postoperatively. She is now in the intensive care unit in room #2. She is on a ventilator and is sedated but is not requiring hemodynamic drips or pressors. I reviewed the CT angiogram performed preoperatively. This shows significant amount of gas in the portal venous system. The inferior mesenteric artery is clearly the dominant vessel and is patent as are lumbar vessels. There is atherosclerotic disease involving the celiac and superior mesenteric arteries. However there is a residual lumen in both of these vessels and that the patient could be aided by endovascular revascularization of one or both of these vessels. The patient is in the process of being transferred to the [facility] for further evaluation and treatment of her short gut situation and thus I will make no plans for endovascular intervention at this time. There was no family present at the time of my visit.
--- NOTE | 2017-09-16 16:51 | Event Note ---
Date of Encounter: 09/16/17 Time of Encounter: 15:45
[2017-09-16] MEDS ORDERED: Clinimix E 5%-15% SOLUTION 2,000 ML with MVI, adult with vitamin K 10 ML IVC SCH (17:00)
[2017-09-16 18:26] VITALS: BP 121/53
[2017-09-16] MEDS ORDERED: 0.9 % Sodium Chloride 250 ML ONE (20:21)
[2017-09-17] MEDS ORDERED: Clinimix E 5%-15% SOLUTION 2,000 ML with MVI, adult with vitamin K 10 ML IVC SCH (17:00)
[2017-09-18] MEDS ORDERED: Clinimix E 5%-15% SOLUTION 2,000 ML with MVI, adult with vitamin K 10 ML IVC SCH (17:00)
--- NOTE | 2017-09-19 16:06 | Electrocardiograph Report ---
[place] [address] Test Date: 2017-09-16 Pat Name: Angie Ernandez Department: 109 Room: [facility] Gender: F Consultants Intern: BEVERLY : 1935 Requested By: Jennifer Olivo Order Number: [id number] Reading MD: Juan Carlos Martinez DO Measurements Intervals [place] Rate: 68 P: [place]: 0 QRS: -22 QRSD: 120 T: 0 QT: 437 QTc: 455 Interpretive Statements SINUS RHYTHM ARTIFACT COMPLICATES INTERPRETATION RECOMMEND A REPEAT ECG Electronically Signed On 09-19-2017 16:04:35 EST by Juan Carlos Martinez DO
--- NOTE | 2017-09-19 16:07 | Electrocardiograph Report ---
[place] [address] Test Date: 2017-09-16 Pat Name: Angie Ernandez Department: 109 Room: [facility] Gender: F Scientist Propagator: BEVERLY : 1935 Requested By: Jennifer Olivo Order Number: [id number] Reading MD: Juan Carlos Martinez DO Measurements Intervals [place] Rate: 69 P: 100 MT: 91 QRS: 2 QRSD: 152 T: 42 QT: 482 QTc: 502 Interpretive Statements SINUS RHYTHM ARTIFACT NOTED Electronically Signed On 09-19-2017 16:05:25 EST by Juan Carlos Martinez DO
== END 2017-09-16 20:38 | disposition other institution (70) | DRG 329 ==
LOC: EMEROO 00:50 → ICNU 04:39
PROVIDERS: ADMIT Surgery; ATTEND Surgery

== ENCOUNTER 2018-06-02 11:38 | Inpatient (IN) ==
--- NOTE | 2018-06-02 12:03 | Emergency Department Note ---
Disposition Clinical Impression: Hypocalcemia, Hypokalemia, Shortness of breath Atrial flutter Qualifiers: Atrial flutter type: unspecified Qualified Code(s): I48.92 - Unspecified atrial flutter COPD (chronic obstructive pulmonary disease) Qualifiers: COPD type: unspecified COPD Qualified Code(s): J44.9 - Chronic obstructive pulmonary disease, unspecified Disposition: Admitted As Inpatient Condition: Serious General Adult HPI - General Chief complaint: ED Dizziness Stated complaint: dizziness / tingling all over Time Seen by Provider: 06/02/18 11:40 Source: EMS Mode of arrival: EMS Limitations: no limitations Nursing Notes Reviewed: Yes Vital Signs Reviewed: Yes - History of Present Illness HPI Narrative: Patient's a 89-year-old female with history of A. fib on Xarelto, COPD, hypothyroidism who presents the emergency department with complaints of shortness of breath and bilateral distal hand tingling which started last night. She states she has been having shortness of breath which worsens when she lays down. Otherwise it denies any chest pain but admits to racing heart. Also admits dizziness but denies any headache, visual changes. Denies any normal nausea, vomiting, diarrhea, abdominal pain. Denies any recent falls or trauma. Pain Scale: 0 - Related Data Home Medications Medication Instructions Recorded Confirmed Atorvastatin Calcium [Lipitor] 20 mg PO HS 07/12/16 06/02/18 Calcium Carbonate/Vitamin D3 1 each PO BID 07/12/16 06/02/18 [Calcium 500 + Vit D Caplet] Losartan Potassium [Cozaar] 50 mg PO DAILY 06/16/17 06/02/18 Levothyroxine Sodium 125 mcg PO DAILY 06/02/18 06/02/18 Metoprolol Tartrate 50 mg PO BID 06/02/18 06/02/18 Previous Rx's Medication Instructions Recorded Omeprazole [PriLOSEC] 40 mg PO DAILY #30 capsule.dr 04/11/15 Rivaroxaban [Xarelto] 20 mg PO DAILY #30 tablet 04/11/15 Allergies Allergy/AdvReac Type Severity Reaction Status Date / Time hydrochlorothiazide Allergy Rash Verified 06/16/17 10:47 All systems ED: reviewed and negative except as stated. Review of Systems: As Per HPI Past Medical History - Past Medical History Source: patient, old records reviewed Medical history: Reports: arthritis, atrial fibrillation, COPD, hyperlipidemia, hypertension, osteoporosis, renal disease, thyroid disease, other Surgical history: Reports: orthopedic, other, other (Bowel surgery) Psychiatric history: Reports: no psych history SERVICE DESK TECHNICIAN history: Reports: no SERVICE DESK TECHNICIAN history - Social History Smoking Status: Former smoker Smokeless Tobacco Status: No Alcohol use: Reports: none Drug use: Reports: none Physical Exam Patient is to And tachycardic to 150s. Is able to speak in full sentences but does have to positives - General Limitations: no limitations General appearance: alert, in distress - Head Head exam: atraumatic, normocephalic - ENT ENT exam: normal exam - Chest Chest inspection: Present: normal inspection, symmetric chest wall rise - Respiratory Respiratory exam: Present: normal lung sounds bilaterally, respiratory distress (tachypnic). Absent: wheezes, stridor, accessory muscle use - Cardiovascular Cardiovascular exam: Present: normal rhythm, tachycardia. Absent: rubs, gallop, clicks, JVD - Abdominal Exam Abdominal exam: Present: soft, Non-Tender - Extremities Exam Extremities exam: Present: normal inspection. Absent: pedal edema - Neurological Exam Neurological exam: Present: alert, oriented X3 - Psychiatric Psychiatric exam: Present: normal affect, normal mood - Skin Skin exam: Present: warm, dry, intact Course Course Narrative: On initial presentation patient is tachycardic, hypertensive and tachypneic initial EKG in 150s and appears consistent with supraventricular tachycardia. Repeat EKG shows rate of 135. - Reevaluation(s) Reevaluation #1: Patient on Cardizem drip at 5. Patient's blood pressure stable at 130/89. heart rate in 130s Time: 14:20 Reevaluation #2: Bolus diltiazem given, drip at 10. HR still in 130s, will give 1g Calcium carbonate and reassess. Time: 15:36 Reevaluation #3: Discussed case with hospitalist and metal control coordinator regarding the patient's care. Given the patient's severe hypocalcemia she will be admitted to the intensive care unit for every 2 hour electrolyte checks and management of her hypocalcemia and hypokalemia. We will switch the patient from Cardizem to amiodarone given her inability to respond to this medication. Time: 17:13 Vital Signs Temperature 97.7 F 06/02/18 11:44 Pulse Rate 156 06/02/18 11:44 Respiratory Rate 20 06/02/18 11:44 Blood Pressure 141/109 06/02/18 11:44 O2 Sat by Pulse Oximetry 100 06/02/18 11:44 Temperature 98.4 F 06/02/18 20:00 Pulse Rate 128 06/02/18 20:00 Respiratory Rate 20 06/02/18 20:00 Blood Pressure 109/76 06/02/18 20:00 O2 Sat by Pulse Oximetry 94 06/02/18 20:00 Oxygen Delivery Oxygen Delivery Room Air Medical Decision Making - MDM Narrative Medical decision making narrative: Patient's a 83-year-old female who presents significantly tachycardic, tachypneic and hypertensive she does have a history of A. fib on Xarelto, metoprolol, and Cardizem. Initial EKG revealed a heart rate of 150s concerning for SVT but upon reassessment her heart rate sustained in the 130s. Lab work significant for calcium of 4.9 with ionized calcium of 0.55 with hypokalemia at 2.8. Patient was started on Cardizem drip without significant improvement increased from 5-10 with an initial bolus but she sustained in the 130s without significant decrease - Medical Records Medical records reviewed: Yes I reviewed the patient's medical records. - Lab Data Lab results reviewed: Yes I reviewed the patient's lab results. Result diagrams: 06/02/18 17:57 06/02/18 17:57 Lab Results 06/02/18 06/02/18 06/02/18 Range/Units 12:32 12:32 12:32 WBC 6.0 (4.3-11.1) K/mcL RBC 4.00 (3.82-4.97) M/mcL Hgb 12.0 (11.5-15.4) g/dL Hct 36.0 (35.3-44.9) % MCV 90.0 (83.0-100.0) fL MCH 30.0 (28.0-33.3) pg MCHC 33.3 (31.6-35.5) g/dL RDW 15.3 H (11.5-14.5) % Plt Count 215 (140-400) K/mcL MPV 12.1 (9.4-12.4) fL Immature Gran % 0.7 (0-4) % Seg Neutrophils % 65.0 % Lymphocytes % 24.9 % Monocytes % 7.9 % Eosinophils % 0.8 % Basophils % 0.7 % Neutrophils # 3.9 (1.6-8.9) K/mcL Lymphocytes # 1.5 (0.6-4.6) K/mcL Monocytes # 0.5 (0.0-1.3) K/mcL Eosinophils # 0.1 (0.0-0.6) K/mcL Basophils # 0.0 (0.0-0.2) K/mcL PT 38.8 H (9.4-12.1) Seconds INR 3.4 APTT 36.4 H (26.0-36.0) Seconds Sodium 140 (136-145) mEq/L Potassium 2.8 L (3.5-5.1) mEq/L Chloride 105 (98-107) mEq/L Carbon Dioxide 23 (23-29) mEq/L BUN 11 (8-23) mg/dL Creatinine 1.03 (0.60-1.20) mg/dL Est GFR ( Amer) > 60 (> 60) Est GFR (Non-Af Amer) 51 L (> 60) BUN/Creatinine Ratio 11 (6-26) Glucose 92 (70-105) mg/dL Calculated Osmolality 289 (280-300) Calcium 5.0 L* (8.6-10.3) mg/dL Venous Ioniz Calcium (1.15-1.35) mmol/L Troponin I 0.03 (< 0.04) ng/mL TSH 3.507 (0.340-5.600) mcIU/mL 06/02/18 06/02/18 Range/Units 13:40 14:27 WBC (4.3-11.1) K/mcL RBC (3.82-4.97) M/mcL Hgb (11.5-15.4) g/dL Hct (35.3-44.9) % MCV (83.0-100.0) fL MCH (28.0-33.3) pg MCHC (31.6-35.5) g/dL RDW (11.5-14.5) % Plt Count (140-400) K/mcL MPV (9.4-12.4) fL Immature Gran % (0-4) % Seg Neutrophils % % Lymphocytes % % Monocytes % % Eosinophils % % Basophils % % Neutrophils # (1.6-8.9) K/mcL Lymphocytes # (0.6-4.6) K/mcL Monocytes # (0.0-1.3) K/mcL Eosinophils # (0.0-0.6) K/mcL Basophils # (0.0-0.2) K/mcL PT (9.4-12.1) Seconds INR APTT (26.0-36.0) Seconds Sodium (136-145) mEq/L Potassium (3.5-5.1) mEq/L Chloride (98-107) mEq/L Carbon Dioxide (23-29) mEq/L BUN (8-23) mg/dL Creatinine (0.60-1.20) mg/dL Est GFR ( Amer) (> 60) Est GFR (Non-Af Amer) (> 60) BUN/Creatinine Ratio (6-26) Glucose (70-105) mg/dL Calculated Osmolality (280-300) Calcium 4.9 L* (8.6-10.3) mg/dL Venous Ioniz Calcium 0.55 L (1.15-1.35) mmol/L Troponin I (< 0.04) ng/mL TSH (0.340-5.600) mcIU/mL - Radiology Data Radiology results reviewed: Yes I reviewed the patient's radiology results. Chest X-Ray 06/02/18 12:07 IMPRESSION: 1. Minimal bibasilar atelectasis. 2. Pulmonary vascular congestion and/or chronic interstitial change. D/ / Keith Castillo MD / Keith Castillo MD Interpreting Provider: Keith Castillo MD - EKG Data EKG #1 EKG attestation: Yes I reviewed and interpreted this EKG. EKG results narrative: Regular rate of 134, indiscernible P waves indiscernible P waves. Likely 2:1 atrial flutter QRS 79, QT 342, QTC 511. When compared with EKG of 06/02/2018 at 1152 rate has slowed EKG #2 EKG attestation: Yes I reviewed and interpreted this EKG. EKG results narrative: Regular rate of 134, indiscernible P waves indiscernible P waves. Likely 2:1 atrial flutter QRS 79, QT 342, QTC 511. When compared with EKG of 06/02/2018 at 1152 rate has slowed EKG shows normal: axis Rhythm: A. flutter Carson/QRS: normal Critical Care Time Critical Care Time: Yes Total Critical Care Time: 60 Attestation: The high probability of a clinically significant, sudden or life threatening deterioration of the [CV] system(s) required my full and direct attention, intervention and personal management. The aggregate critical care time was [60] minutes. This time is in addition to time spent performing reported procedures but includes the following: [x] Data Review and interpretation [x] Patient assessment and monitoring of vital signs [x] Documentation [x] Medication orders and management Attestation Statement - Attestation Attestation: I examined this patient and my medical decision-making was reviewed with the Resident Physician, Dr. Odom. I agree with the documented findings, disposition and treatment plan as described except to the extent set forth below. Patient is a pleasant 83-year-old white female who presents seem or permit today with a two-week history of intermittent palpitations and shortness of breath that has worsened over the last 48 hours. Patient denies any chest pain or heaviness, no syncope, no abdominal pain, no diaphoresis, no nausea vomiting no other associated symptoms. Patient states she has a history of atrial fibrillation and she is on Xarelto as well as Cardizem at home has been taking h er medications as prescribed and has not had any vomiting or difficulty tolerating her meds. Patient states she adamantly has episodes of A. fib. Upon review of her medical records patient was admitted approximately one month ago with A. fib with RVR as well as ischemic bowel for which she required surgery. Patient underwent echocardiogram and was found to have that she should on her aortic valve that were not found be infectious in nature. Patient returns today with isolated dyspnea and tachycardia. I agree with patient's physical exam findings as documented. Patient was tachycardic but stable blood pressure. EKG shows evidence of atrial flutter without acute ischemia. Patient had aspirin and full lab evaluation including chest x-ray was performed. Patient was started initially on Cardizem drip. Following Cardizem drip with titration of drip including bolus patient had no improvement of her tachycardia, although blood pressure remained stable throughout. Patient's labs show a negative troponin, but does have a critically low calcium level that was called by lab. Patient also hypokalemic at 2.8. Unclear as the etiology of these like joint abnormalities. Patient received oral potassium replacement which she tolerated well, as well as IV calcium replacement. We consult to the cardiology from the ED who recommended that we start amiodarone. Discussed the case with the hospitalist who recommended ICU placement due to the profound hypokalemia. Patient was seen by the metal control coordinator at bedside and will be admitted to the ICU for electrolyte protocols. Patient has remained tachycardic but hemodynamically stable throughout her ED course and is resting comfortably at bedside.
[2018-06-02 12:45] LABS: Basophils % 0.7 %; Eosinophils # 0.1 K/mcL (0.0-0.6); Eosinophils % 0.8 %; Immature Granulocytes % 0.7 % (0-4); Lymphocytes # 1.5 K/mcL (0.6-4.6); Lymphocytes % 24.9 %; Mean Corpuscular HGB Conc 33.3 g/dL (31.6-35.5); Mean Platelet Volume 12.1 fL (9.4-12.4); Monocytes # 0.5 K/mcL (0.0-1.3); Monocytes % 7.9 %; Neutrophils # 3.9 K/mcL (1.6-8.9); Platelet Count 215 K/mcL (140-400); Red Cell Distribution Width 15.3 % (11.5-14.5)
[2018-06-02 12:57] LABS: INR 3.4; Prothrombin Time 38.8 Seconds (9.4-12.1)
[2018-06-02 13:00] LABS: Activated Partial Thrombo Time 36.4 Seconds (26.0-36.0)
[2018-06-02 13:10] LABS: BUN/Creatinine Ratio 11 (6-26); Blood Urea Nitrogen 11 mg/dL (8-23); Carbon Dioxide 23 mEq/L (23-29); Chloride 105 mEq/L (98-107); Glucose 92 mg/dL (70-105); Osmolality,Calculated 289 (280-300); Potassium 2.8 mEq/L (3.5-5.1); Sodium 140 mEq/L (136-145); Troponin I 0.03 ng/mL (< 0.04); eGFR For Non-African Americans 51 (> 60)
[2018-06-02 13:35] LABS: Thyroid Stimulating Hormone 3.507 mcIU/mL (0.340-5.600)
[2018-06-02 14:29] LABS: VBG Ionized Calcium 0.55 mmol/L (1.15-1.35)
[2018-06-02] MEDS ORDERED: 0.9 % Sodium Chloride 500 ML ONE (15:27)
[2018-06-02] MEDS: 0.9 % Sodium Chloride 500 ML IVC ONE ×2 (15:29→17:05)
--- NOTE | 2018-06-02 16:14 | Electrocardiograph Report ---
[facility] Test Date: 2018-06-02 Pat Name: Angie Ernandez Department: [id number] Room: Gender: F Call Center Dispatcher: : [id number] Requested By: Anisa Odom Order Number: [id number] Reading MD: Hari Molina Measurements Intervals [place] Rate: 156 P: 58 [place]: 199 QRS: 64 QRSD: 85 T: QT: 312 QTc: 503 Interpretive Statements Supraventricular tachycardia Repolarization abnormality, prob rate related Electronically Signed On 06-02-2018 16:12:54 EDT by Hari Molina
--- NOTE | 2018-06-02 16:15 | Electrocardiograph Report ---
[facility] Test Date: 2018-06-02 Pat Name: Angie Ernandez Department: [id number] Room: Gender: F Public Relations Specialist: : [id number] Requested By: Shanna Rosa_Lars Order Number: [id number] Reading MD: Hari Molina Measurements Intervals [place] Rate: 134 P: 68 ND: 228 QRS: 65 QRSD: 79 T: 74 QT: 342 QTc: 511 Interpretive Statements Sinus tachycardia, possible flutter Prolonged ND interval Consider right atrial enlargement Posterior infarct, recent Lateral leads are also involved Prolonged QT interval Electronically Signed On 06-02-2018 16:13:44 EDT by Hari Molina
[2018-06-02] MEDS ORDERED: Amiodarone Premix 150 MG/100 ML BAG IVPB ONE (16:53)
[2018-06-02 17:14] LABS: Alanine Aminotransferase 5 Units/L (7-52); Albumin 2.7 g/dL (3.5-5.7); Alkaline Phosphatase 92 Units/L (34-104); Aspartate Amino Transferase 13 Units/L (13-39); BUN/Creatinine Ratio 11 (6-26); Bilirubin,Total 0.6 mg/dL (0.3-1.0); Blood Urea Nitrogen 10 mg/dL (8-23); Carbon Dioxide 24 mEq/L (23-29); Chloride 106 mEq/L (98-107); Globulin 2.6 g/dL (2.4-3.5); Glucose 77 mg/dL (70-105); Magnesium 0.5 mg/dL (1.6-2.6); Osmolality,Calculated 290 (280-300); Sodium 141 mEq/L (136-145); Total Protein 5.3 g/dL (6.4-8.9); eGFR For Non-African Americans 59 (> 60)
[2018-06-02] MEDS ORDERED: Potassium Phosphate 44 MEQ in 0.9 % Sodium Chloride 250 ML IVPB PRN (17:18)
[2018-06-02] MEDS ORDERED: Ipratropium/Albuterol Neb 3 ML IH PRN (17:36)
[2018-06-02 18:11] LABS: Basophils # 0.1 K/mcL (0.0-0.2); Basophils % 0.7 %; Eosinophils # 0.1 K/mcL (0.0-0.6); Eosinophils % 1.4 %; Hematocrit 38.8 % (35.3-44.9); Hemoglobin 12.7 g/dL (11.5-15.4); Immature Granulocytes % 0.5 % (0-4); Lymphocytes # 3.2 K/mcL (0.6-4.6); Mean Corpuscular HGB Conc 32.7 g/dL (31.6-35.5); Mean Corpuscular Hemoglobin 29.5 pg (28.0-33.3); Mean Platelet Volume 12.1 fL (9.4-12.4); Monocytes # 0.6 K/mcL (0.0-1.3); Monocytes % 7.6 %; Neutrophils # 3.8 K/mcL (1.6-8.9); Platelet Count 238 K/mcL (140-400); Red Blood Count 4.31 M/mcL (3.82-4.97); Red Cell Distribution Width 15.3 % (11.5-14.5); Segmented Neutrophils % 48.8 %
[2018-06-02] MEDS: *HR* Heparin 5,000 UNIT/ML VIAL SQ SCH (18:16)
[2018-06-02] MEDS: *HR* Metoprolol 5 MG/5 ML VIAL IVP SCH ×2 (18:16→23:16)
[2018-06-02 18:35] LABS: Magnesium 0.5 mg/dL (1.6-2.6); Phosphorous 2.6 mg/dL (2.7-4.5)
[2018-06-02 18:41] LABS: BUN/Creatinine Ratio 11 (6-26); Blood Urea Nitrogen 10 mg/dL (8-23); Calcium 5.3 mg/dL (8.6-10.3); Carbon Dioxide 21 mEq/L (23-29); Chloride 107 mEq/L (98-107); Glucose 89 mg/dL (70-105); Osmolality,Calculated 295 (280-300); Potassium 3.2 mEq/L (3.5-5.1); Sodium 143 mEq/L (136-145); eGFR For Non-African Americans 58 (> 60)
--- NOTE | 2018-06-02 19:39 | Pulmonology History & Physical ---
<Nicole Arguello - Last Filed: 06/02/18 17:51> Date of Encounter: 06/02/18 Time of Encounter: 17:16 Assessment and Plan (1) Atrial fibrillation with rapid ventricular response Current visit: Yes Status: Chronic Pt presented with tachycardia in the 150s in the ED Was started on a Cardizem drip and HR dropped to 130s Has remained normotensive on this therapy Will add 10mg Lopressor q6H If this does not work will add amiodarone Replace electrolytes with protocol Takes Xarelto at home Continue anticoagulation with SQ heparin (2) COPD (chronic obstructive pulmonary disease) Current visit: Yes Status: Chronic Not currently complaining of any shortness of breath Will give Duonebs prn Qualifiers: COPD type: unspecified COPD Qualified Code(s): J44.9 - Chronic obstructive pulmonary disease, unspecified (3) Hypomagnesemia Current visit: Yes Status: Acute Mag 0.5 Electrolyte replacement protocol (4) Hypocalcemia Current visit: Yes Status: Acute Ionized Ca 0.55 Electrolyte replacement protocol (5) Hypokalemia Current visit: Yes Status: Acute K 3.0 in ED Electrolyte replacement protocol (6) Anticoagulated Current visit: Yes Status: Chronic Takes xarelto at home Switch to SQ heparin in hospital (7) Chronic kidney disease Current visit: Yes Status: Chronic Cre nml at 0.91 Continue to follow with labs Keep well hydrated Correct electrolyte abnormalities Qualifiers: Chronic kidney disease stage: stage 2 (mild) Qualified Code(s): N18.2 - Chronic kidney disease, stage 2 (mild) (8) Hypothyroid Current visit: Yes Status: Chronic TSH 3.507 on levothyroxine Qualifiers: Hypothyroidism type: acquired Qualified Code(s): E03.9 - Hypothyroidism, unspecified (9) DVT prophylaxis Current visit: Yes Status: Acute SQ heparin History of Present Illness Chief complaint: dizziness, tingling HPI: Ms. Ernandez is a 83 year old female who presented to the ED with fatigue and tingling in her fingers that began today. She has a PMHx of COPD and afib w/ RVR on Xarelto. Her HR was increased in the 150s so Cardizem was started which has partially controlled her HR. In the ED it was found that her ionized Ca was 0.55, Mg was 0.5, K was 3.0. She denies N/V/D, perioral numbness, ab pain, changes in vision, headache, SOB, muscle cramping. She takes her meds at home. Past Med Surg Social Fam HX - Past Medical History Source: patient Medical history: arthritis, atrial fibrillation, COPD, hyperlipidemia, hypertension, osteoporosis, renal disease, thyroid disease, other Additional medical history: ulcer Psychiatric history: no psych history - Past Surgical History Surgical History: orthopedic, other, other (Bowel surgery) Additional surgical history: bowel resection - Social History Smoking Status: Former smoker Smokeless Tobacco Status: No Alcohol use: none Drug use: none - Family History Father Adopted: No Family Member Ethnicity: Non- Living Status: Hx Family Cardiac Disorders: No Hx Family Respiratory Disorders: Yes (emphysema) Hx Family Cancer: No Hx Family GI Disorders: No Hx Family Endocrine Disorder: No Hx Family Neuromuscular Disorders: No Hx Family Neurologic Disorders: No Hx Family HEENT Disorders: No Hx Family Autoimmune Disorders: No Mother Adopted: No Living Status: Hx Family Cardiac Disorders: Yes Medications and Allergies Omeprazole [PriLOSEC] 40 mg PO DAILY #30 capsule.dr 04/11/15 [Rx] Rivaroxaban [Xarelto] 20 mg PO DAILY #30 tablet 04/11/15 [Rx] Atorvastatin Calcium [Lipitor] 20 mg PO HS 07/12/16 [History] Calcium Carbonate/Vitamin D3 [Calcium 500 + Vit D Caplet] 1 each PO BID 07/12/16 [History] Losartan Potassium [Cozaar] 50 mg PO DAILY 06/16/17 [History] Levothyroxine Sodium 125 mcg PO DAILY 06/02/18 [History] Metoprolol Tartrate 50 mg PO BID 06/02/18 [History] Allergy/AdvReac Type Severity Reaction Status Date / Time hydrochlorothiazide Allergy Rash Verified 06/16/17 10:47 All Systems: The remainder of the systems were reviewed and are negative - Constitutional Constitutional: fatigue, weakness, other (tingling of fingers) Physical Examination Vital Signs: Vital Signs, Last 4 Hours Pulse Resp BP Pulse Ox 06/02/18 17:09 16 121/102 06/02/18 16:24 129 18 124/84 100 06/02/18 15:24 133 18 92/61 99 06/02/18 14:57 129 18 114/85 100 06/02/18 13:58 132 22 130/89 99 General appearance: no acute distress, alert Eyes: nonicteric ENT: oropharynx moist Effort: normal Inspection: normal Auscultation: bilateral: clear Cardiovascular: irregular rhythm, other (tachycardic) Gastrointestinal: normoactive bowel sounds, soft, non-tender, non-distended Integumentary: normal Extremities: no cyanosis, no edema, pulses normal Musculoskeletal: no deformities normal mental status, non-focal exam mood appropriate, affect normal Results - Laboratory Findings CBC and BMP: 06/02/18 12:32 06/02/18 16:40 PT/INR, D-dimer PT 38.8 Seconds (9.4-12.1) H 06/02/18 12:32 Abnormal lab findings: Abnormal lab results RDW 15.3 % (11.5-14.5) H 06/02/18 12:32 PT 38.8 Seconds (9.4-12.1) H 06/02/18 12:32 APTT 36.4 Seconds (26.0-36.0) H 06/02/18 12:32 Potassium 3.0 mEq/L (3.5-5.1) L 06/02/18 16:40 Est GFR (Non-Af Amer) 59 (> 60) L 06/02/18 16:40 Calcium 5.0 mg/dL (8.6-10.3) L* 06/02/18 16:40 Venous Ioniz Calcium 0.55 mmol/L (1.15-1.35) L 06/02/18 14:27 Magnesium 0.5 mg/dL (1.6-2.6) L 06/02/18 16:40 ALT 5 Units/L (7-52) L 06/02/18 16:40 Serum Total Protein 5.3 g/dL (6.4-8.9) L 06/02/18 16:40 Albumin 2.7 g/dL (3.5-5.7) L 06/02/18 16:40 Albumin/Globulin Ratio 1.0 (1.1-2.2) L 06/02/18 16:40 <Yuridia Ritchie S - Last Filed: 06/02/18 20:51> History of Present Illness HPI: Ms. Ernandez is a 83 year old female All Systems: The remainder of the systems were reviewed and are negative Physical Examination Vital Signs: Vital Signs, Last 4 Hours Temp Pulse Resp BP Pulse Ox 06/02/18 20:00 98.4 F 128 20 109/76 94 06/02/18 19:48 125 06/02/18 19:00 125 22 113/83 96 06/02/18 18:03 133 20 158/96 97 06/02/18 18:00 98 06/02/18 17:47 125 06/02/18 17:09 16 121/102 Results - Laboratory Findings CBC and BMP: 06/02/18 17:57 06/02/18 17:57 PT/INR, D-dimer PT 38.8 Seconds (9.4-12.1) H 06/02/18 12:32 Abnormal lab findings: Abnormal lab results RDW 15.3 % (11.5-14.5) H 06/02/18 17:57 PT 38.8 Seconds (9.4-12.1) H 06/02/18 12:32 APTT 36.4 Seconds (26.0-36.0) H 06/02/18 12:32 Potassium 3.2 mEq/L (3.5-5.1) L 06/02/18 17:57 Carbon Dioxide 21 mEq/L (23-29) L 06/02/18 17:57 Est GFR (Non-Af Amer) 58 (> 60) L 06/02/18 17:57 Calcium 5.3 mg/dL (8.6-10.3) L* 06/02/18 17:57 Venous Ioniz Calcium 0.66 mmol/L (1.15-1.35) L 06/02/18 20:09 Phosphorus 2.6 mg/dL (2.7-4.5) L 06/02/18 17:57 Magnesium 0.5 mg/dL (1.6-2.6) L 06/02/18 17:57 ALT 5 Units/L (7-52) L 06/02/18 16:40 Serum Total Protein 5.3 g/dL (6.4-8.9) L 06/02/18 16:40 Albumin 2.7 g/dL (3.5-5.7) L 06/02/18 16:40 Albumin/Globulin Ratio 1.0 (1.1-2.2) L 06/02/18 16:40 - Attending Attestation I saw and evaluated this patient and my medical decision-making was reviewed with the Resident Physician. I agree with the documented findings, disposition and treatment plan as described except to the extent set forth below. We i ndependently had [id number] contact with the patient Patient seen and examined at bedside Labs, radiology, chart personally reviewed. VP OF DIGITAL MARKETING: Patient is conscious oriented 3 no active VP OF D[employer]ITAL MARKETING issues Pulm: Patient has acceptable oxygenation and ventilation no significant V/Q mismatch patient is saturating well on room air. Cards: Patient with atrial fibrillation/atrial flutter with RVR with some diastolic dysfunction did not respond to Cardizem we will start him on beta lina if did not work will change to amiodarone as digoxin will be high risk with this electrolytes abnormality. FEN-GI: Advance diet as tolerated Renal: Labs and output reviewed patient has severe hypokalemia, hypomagnesemia, hypocalcemia which is symptomatic so she needs to be in IV electrolyte protocol as she is symptomatic she will need IV calcium gluconate to give 1 g to 2 g over 20-30 minutes if that does not improve can be followed by another 1-2 g of calcium gluconate. after 60 minutes of the first dose . In the meantime magnesium and potassium should be corrected not sure how this loss happened patient denies any diuretic use denies any GI losses consulted nephrology appreciate their recommendations. ID: No active infectious issues. Heme/Onc: Patient is therapeutic INR of 3.5 Endo: Glucose Monitored Integ/MSK: Skin Care per routine ICU Nursing Protocol to prevent ulcers. Lines: All lines examined without evidence of infection : Dispo: To remain the ICU due to severe electrolyte abnormality CODE: DNRA -DNI
--- NOTE | 2018-06-02 19:48 | Nephrology Consult Note ---
Date of Encounter: 06/02/18 Time of Encounter: 18:50 Assessment and Plan (1) Hypocalcemia Status: Acute Replete with ICU Electrolyte protocol. (2) Hypokalemia Status: Acute Replete with ICU Electrolyte protocol. (3) Hypomagnesemia Status: Acute Replete with ICU Electrolyte protocol. (4) Atrial fibrillation with rapid ventricular response Status: Chronic History of Present Illness - Reason for Consult Consult date: 06/02/18 hypokalemia (plus hypocalcemia and hypomagnesemia) Requesting physician: Emily Bradford - Chief Complaint Electrolyte abnormalities - History of Present Illness Angie Ernandez is a very pleasant 83 y/o WF who presented with diarrhea and found to have multiple electrolyte abnormalities. She described having watery stools as "runny", and also she denied taking OTC NSAIDs. She last had a gastric ulcer event about 4 years ago, she said. She has a hx of AFib. She said that her di arrhea has been ongoing for several weeks but recently worsening. She did not associate any other problems and did not report any other palliative or provocative features. She has not previously needed to see a regional trainer, she said. Past Med Surg Social Fam HX - Past Medical History Medical history: arthritis, atrial fibrillation, COPD, hyperlipidemia, hypertension, osteoporosis, renal disease, thyroid disease, other Additional medical history: ulcer Psychiatric history: no psych history - Past Surgical History Surgical History: orthopedic, other, other (Bowel surgery) Additional surgical history: bowel resection - Social History Smoking Status: Former smoker Smokeless Tobacco Status: No Alcohol use: none Drug use: none - Family History Father Adopted: No Family Member Ethnicity: Non- Living Status: Hx Family Cardiac Disorders: No Hx Family Respiratory Disorders: Yes (emphysema) Hx Family Cancer: No Hx Family GI Disorders: No Hx Family Endocrine Disorder: No Hx Family Neuromuscular Disorders: No Hx Family Neurologic Disorders: No Hx Family HEENT Disorders: No Hx Family Autoimmune Disorders: No Mother Adopted: No Living Status: Hx Family Cardiac Disorders: Yes Medications and Allergies Omeprazole [PriLOSEC] 40 mg PO DAILY #30 capsule. 04/11/15 [Rx] Rivaroxaban [Xarelto] 20 mg PO DAILY #30 tablet 04/11/15 [Rx] Atorvastatin Calcium [Lipitor] 20 mg PO HS 07/12/16 [History] Losartan Potassium [Cozaar] 50 mg PO DAILY 06/16/17 [History] Levothyroxine Sodium 125 mcg PO DAILY 06/02/18 [History] Metoprolol Tartrate 50 mg PO BID 06/02/18 [History] Calcium Carbonate/Vitamin D3 [Calcium 500 + Vit D Caplet] 2 each PO BID 30 Days #120 tablet 06/05/18 [Rx] Loperamide [Imodium] 1 mg PO QID PRN 15 Days #60 udc 06/05/18 [Rx] Magnesium Oxide [Mag-Ox] 400 mg PO DAILY 30 Days #30 tablet 06/05/18 [Rx] Allergy/AdvReac Type Severity Reaction Status Date / Time hydrochlorothiazide Allergy Rash Verified 06/16/17 10:47 Review of Systems All Systems: reviewed and no additional remarkable complaints except as stated Exam - Vital Signs Vital signs: Initial Vital Signs Temp Pulse Resp BP Pulse Ox 97.7 F 156 20 141/109 100 06/02/18 11:44 06/02/18 11:44 06/02/18 11:44 06/02/18 11:44 06/02/18 11:44 Vital Signs - Last 8 Hours Temp Pulse Resp BP Pulse Ox 06/02/18 18:03 133 20 158/96 97 06/02/18 18:00 98 06/02/18 17:47 125 06/02/18 17:09 16 121/102 06/02/18 16:24 129 18 124/84 100 06/02/18 15:24 133 18 92/61 99 06/02/18 14:57 129 18 114/85 100 06/02/18 13:58 132 22 130/89 99 06/02/18 11:44 97.7 F 156 20 141/109 100 Intake and Output 06/02/18 06/02/18 06/02/18 07:59 15:59 23:59 Intake Total 714 / 714 Balance 714 / 714 Intake: IV Fluids 714 / 714 0.9 % Sodium Chloride 500 ML @ 500 / 500 999 mls/hr IVC .Q31M ONE Rx#: [id number] Calcium Gluconate 1,000 MG In 0 110 / 110 .9 % Sodium Chloride 100 ML @ 220 mls/hr IVPB ONCE ONE Rx#: [id number] Magnesium Sulfate 2 GM In 0.9 % 104 / 104 Sodium Chloride 100 ML @ 104 mls/hr IVPB ONCE ONE Rx#: [id number] Other: Weight 73.346 kg Patient Weight 06/02/18 23:59 Weight 73.346 kg - General Appearance General appearance: well-developed, appears started age, obese, fatigue, frail EENT: ATNC, PERRL, mucous membranes moist Neck: supple Respiratory: clear Cardiology: no edema, regular rate, irregular rhythm, normal S1, normal S2 Gastrointestinal: normoactive bowel sounds, no tenderness, no guarding, obese Integumentary: no rash, warm and dry Neurologic: no focal deficit, no asterixis, alert and oriented x3 Musculoskeletal: no erythema, no cyanosis Psychiatric: mood/affect appropriate, cooperative Results - Lab Results 06/05/18 04:25 06/05/18 04:25 Most recent lab results Calcium 5.3 mg/dL (8.6-10.3) L* 06/02/18 17:57 Phosphorus 2.6 mg/dL (2.7-4.5) L 06/02/18 17:57 Magnesium 0.5 mg/dL (1.6-2.6) L 06/02/18 17:57 I reviewed her labs, vitals, meds, progress notes, prior imaging. Consult Discharge Plan - Plan Instructions: Loperamide (By mouth), Magnesium Oxide (By mouth) Referrals: Holley Alexander DO [Primary Care Provider] - 05/14/19 Prescriptions: Calcium Carbonate/Vitamin D3 [Calcium 500 + Vit D Caplet] 2 each PO BID 30 Days #120 tablet Loperamide [Imodium] 1 mg PO QID PRN 15 Days #60 udc PRN Reason: Diarrhea Magnesium Oxide [Mag-Ox] 400 mg PO DAILY 30 Days #30 tablet
[2018-06-02 20:15] LABS: VBG Ionized Calcium 0.66 mmol/L (1.15-1.35)
[2018-06-03 02:31] LABS: Albumin 2.5 g/dL (3.5-5.7); Magnesium 1.4 mg/dL (1.6-2.6); Phosphorous 4.8 mg/dL (2.7-4.5)
[2018-06-03] MEDS: *HR* Metoprolol 5 MG/5 ML VIAL IVP SCH ×5 (06:00→23:06)
[2018-06-03] MEDS: *HR* Heparin 5,000 UNIT/ML VIAL SQ SCH (06:00)
[2018-06-03 07:52] LABS: VBG Ionized Calcium 0.73 mmol/L (1.15-1.35)
[2018-06-03 07:53] LABS: Basophils % 0.5 %; Eosinophils # 0.2 K/mcL (0.0-0.6); Eosinophils % 3.5 %; Hemoglobin 11.6 g/dL (11.5-15.4); Immature Granulocytes % 0.3 % (0-4); Lymphocytes # 1.9 K/mcL (0.6-4.6); Lymphocytes % 32.9 %; Mean Corpuscular HGB Conc 33.1 g/dL (31.6-35.5); Mean Corpuscular Hemoglobin 29.7 pg (28.0-33.3); Mean Corpuscular Volume 89.7 fL (83.0-100.0); Mean Platelet Volume 11.8 fL (9.4-12.4); Monocytes # 0.5 K/mcL (0.0-1.3); Monocytes % 8.7 %; Neutrophils # 3.1 K/mcL (1.6-8.9); Platelet Count 206 K/mcL (140-400); Red Cell Distribution Width 15.5 % (11.5-14.5); Segmented Neutrophils % 54.1 %
[2018-06-03 08:11] LABS: Phosphorous 4.4 mg/dL (2.7-4.5); Potassium 3.9 mEq/L (3.5-5.1)
[2018-06-03 08:13] LABS: Alanine Aminotransferase 4 Units/L (7-52); Albumin 2.8 g/dL (3.5-5.7); Albumin/Globulin Ratio 1.2 (1.1-2.2); Alkaline Phosphatase 88 Units/L (34-104); Aspartate Amino Transferase 13 Units/L (13-39); BUN/Creatinine Ratio 8 (6-26); Bilirubin,Total 0.6 mg/dL (0.3-1.0); Blood Urea Nitrogen 7 mg/dL (8-23); Calcium 5.6 mg/dL (8.6-10.3); Carbon Dioxide 27 mEq/L (23-29); Chloride 107 mEq/L (98-107); Globulin 2.3 g/dL (2.4-3.5); Glucose 83 mg/dL (70-105); Magnesium 1.5 mg/dL (1.6-2.6); Osmolality,Calculated 295 (280-300); Sodium 144 mEq/L (136-145); Total Protein 5.1 g/dL (6.4-8.9); eGFR For Non-African Americans > 60 (> 60)
[2018-06-03] MEDS ORDERED: Calcium Gluconate 2,000 MG in 0.9 % Sodium Chloride 100 ML IVPB PRN (09:29)
--- NOTE | 2018-06-03 09:42 | Cardiology Consult Note ---
Date of Encounter: 06/03/18 Time of Encounter: 10:00 Assessment and Plan (1) Atrial flutter Current Visit: Yes Status: Acute Patient profoundly electrolyte depleted likely contributing to her AF RVR, repletion is underway which will make it easier to convert to SR or rate control. She has previously been on xarelto. It was discontinued yesterday in lieu of heparin 5000U SC. Will start metoprolol 50mg po BID, she is minimally symptomatic at this time. If continued RVR, can uptitrate BB. If electrolytes are in normal range (with Mag >2.2, K>4 preferably), then will cardiovert if still in Aflutter RVR. If she missed her dose of xarelto yesterday, then she will need a CHANELL in addition to assess for thrombus. Qualifiers: Atrial flutter type: unspecified Qualified Code(s): I48.92 - Unspecified atrial flutter (2) Hypokalemia Current Visit: Yes Status: Acute being repleted (3) Hypomagnesemia Current Visit: Yes Status: Acute being repleted Discussion w patient/family: The assessment and plan as outlined above was discussed with the patient and/or family members who expressed understanding and agreement. All questions were answered. Thank you for involving us in the care of your patient. Please call with any questions. History of Present Illness Consult date: 06/03/18 Consult reason: atrial flutter History of present illness: Ms. Ernandez is a 83 year old female with history of AF, HTN, dyslipidemia on rate control strategy and full dose chronic anticoagulation with Xarelto. She presents with AFlutter RVR and findings of multiple electrolyte derangements including profound hypomagnesiumemia. She states she is eating a balanced diet but does not elaborate. She has had recent diarrhea. She notes palpitations bu t no chest pressure or dyspnea at this time. 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 Attached to the frond on the LCC is a small round calcified echodensity that moves with the filiform structure. Recommend clinical correlation. Normal left ventricular size and systolic function. Normal right ventricular size and function. Calcified plaquing of the proximal ascending and descending thoracic aorta. TTE 04/2015:Atrial fibrillation with RVR. LVEF 60%. There is atypical septal motion consistent with bundle branch block. Indeterminate diastolic function due to atrial fibrillation. Normal right ventricular structure and function. Mildly dilated left atrium. No significant valvular dysfunction. No evidence of pulmonary hypertension. Past Med Surg Social Fam HX - Past Medical History Medical history: arthritis, atrial fibrillation, COPD, hyperlipidemia, hypertension, osteoporosis, renal disease, thyroid disease, other Additional medical history: ulcer Psychiatric history: no psych history - Past Surgical History Surgical History: orthopedic, other, other (Bowel surgery) Additional surgical history: bowel resection - Social History Smoking Status: Former smoker Smokeless Tobacco Status: No Alcohol use: none Drug use: none - Family History Father Adopted: No Family Member Ethnicity: Non- Living Status: Hx Family Cardiac Disorders: No Hx Family Respiratory Disorders: Yes (emphysema) Hx Family Cancer: No Hx Family GI Disorders: No Hx Family Endocrine Disorder: No Hx Family Neuromuscular Disorders: No Hx Family Neurologic Disorders: No Hx Family HEENT Disorders: No Hx Family Autoimmune Disorders: No Mother Adopted: No Living Status: Hx Family Cardiac Disorders: Yes Medications and Allergies Omeprazole [PriLOSEC] 40 mg PO DAILY #30 capsule.dr 04/11/15 [Rx] Rivaroxaban [Xarelto] 20 mg PO DAILY #30 tablet 04/11/15 [Rx] Atorvastatin Calcium [Lipitor] 20 mg PO HS 07/12/16 [History] Calcium Carbonate/Vitamin D3 [Calcium 500 + Vit D Caplet] 1 each PO BID 07/12/16 [History] Losartan Potassium [Cozaar] 50 mg PO DAILY 06/16/17 [History] Levothyroxine Sodium 125 mcg PO DAILY 06/02/18 [History] Metoprolol Tartrate 50 mg PO BID 06/02/18 [History] Allergy/AdvReac Type Severity Reaction Status Date / Time hydrochlorothiazide Allergy Rash Verified 06/16/17 10:47 All Systems Review: The remainder of the systems were reviewed and are negative - Constitutional Constitutional: no anorexia, no night sweats - EENT Eyes: no loss of vision, no pain Nose, mouth and throat: no epistaxis, no sore throat - Cardiovascular Cardiovascular: palpitations, no chest pain at rest, no chest pain with exertion - Respiratory Respiratory: no cough, no hemoptysis - Gastrointestinal Gastrointestinal: no hematemesis, no hematochezia - Genitourinary Genitourinary: no hematuria, no nocturia - Musculoskeletal Musculoskeletal: no arthralgias, no myalgias - Integumentary Integumentary: no erythema, no unusual bruising - Neurological Neurological: no syncope, no tingling - Psychiatric Psychiatric: no hallucinations, no panic attacks - Hematological/Lymphatic Hematologic/Lymphatic: no easy bleeding, no easy bruising Physical Examination Vital Signs, Last 4 Hours Temp Pulse Resp BP Pulse Ox 06/03/18 09:00 122 16 145/104 94 06/03/18 08:00 124 18 141/103 97 06/03/18 07:00 122 16 126/91 97 06/03/18 06:27 97.8 F 06/03/18 06:03 124 17 137/96 97 General: Conversant HEENT: Atraumatic Neck: No JVD Cardiac: Other (tachy s1 s2) Lungs: Normal Breath Sounds Neuro: No focal deficits noted Abdomen: Soft, Non-Tender Skin: No rashes noted on visualized skin Musculoskeletal: No Chest Wall Tenderness Extremities: No Edema Results 06/03/18 07:37 06/03/18 07:37 Lab Results 06/02/18 06/02/18 06/02/18 12:32 12:32 12:32 WBC 6.0 Hgb 12.0 Hct 36.0 Plt Count 215 INR 3.4 APTT 36.4 H Sodium 140 Potassium 2.8 L Chloride 105 Carbon Dioxide 23 BUN 11 Creatinine 1.03 Glucose 92 Calcium 5.0 L* Magnesium Total Bilirubin AST ALT Alkaline Phosphatase Troponin I 0.03 TSH 3.507 06/02/18 06/02/18 06/02/18 13:40 16:40 17:57 WBC Hgb Hct Plt Count INR APTT Sodium 141 Potassium 3.0 L Chloride 106 Carbon Dioxide 24 BUN 10 Creatinine 0.91 Glucose 77 Calcium 4.9 L* 5.0 L* Magnesium 0.5 L 0.5 L Total Bilirubin 0.6 AST 13 ALT 5 L Alkaline Phosphatase 92 Troponin I TSH 06/02/18 06/02/18 06/02/18 17:57 17:57 23:03 WBC 7.7 Hgb 12.7 Hct 38.8 Plt Count 238 INR APTT Sodium 143 Potassium 3.2 L Chloride 107 Carbon Dioxide 21 L BUN 10 Creatinine 0.93 Glucose 89 Calcium 5.3 L* Magnesium 1.0 L Total Bilirubin AST ALT Alkaline Phosphatase Troponin I TSH 06/03/18 06/03/18 06/03/18 02:02 07:37 07:37 WBC Hgb Hct Plt Count INR APTT Sodium 144 Potassium 4.0 3.9 Chloride 107 Carbon Dioxide 27 BUN 7 L Creatinine 0.87 Glucose 83 Calcium 5.6 L* Magnesium 1.4 L 1.5 L Total Bilirubin 0.6 AST 13 ALT 4 L Alkaline Phosphatase 88 Troponin I TSH 06/03/18 07:37 WBC 5.8 Hgb 11.6 Hct 35.0 L Plt Count 206 INR APTT Sodium Potassium Chloride Carbon Dioxide BUN Creatinine Glucose Calcium Magnesium Total Bilirubin AST ALT Alkaline Phosphatase Troponin I TSH - EKG Interpretation EKG results cardiology: personally reviewed (af rvr) Consult Discharge Plan - Plan Referrals: Holley Alexander DO [Primary Care Provider] -
--- NOTE | 2018-06-03 10:02 | Pulmonology Progress Note ---
Date of Encounter: 06/03/18 Time of Encounter: 09:00 Assessment and Plan (1) Atrial fibrillation with rapid ventricular response Current Visit: Yes Status: Chronic Patient presented with severe electrolyte imbalance hypomagnesemia hypocalcemia and due to diarrhea and his GI losses once the potassium and magnesium is corrected at 4 and 2 respectively cardiology is recommending cardiac motion at that point the meantime to start by mouth beta blockers patient was therapeutic in anticoagulation yesterday. To start Xarelto according to cardiology (2) Hypomagnesemia Current Visit: Yes Status: Acute To replete according to ICU protocol to keep magnesium greater than 2. (3) Hypocalcemia Current Visit: Yes Status: Acute To replete according to ICU protocol (4) COPD (chronic obstructive pulmonary disease) Current Visit: Yes Status: Chronic Symptoms are stable Qualifiers: COPD type: unspecified COPD Qualified Code(s): J44.9 - Chronic obstructive pulmonary disease, unspecified (5) DVT prophylaxis Current Visit: Yes Status: Acute Patient is on Xarelto Subjective Principal diagnosis: ATRIAL FIB /Flutter with RVR Interval history: Patient feeling a lot better denies any palpitation no chest pain denies any syncopal symptoms. Objective PUL Vital signs: Last Vital Signs Temp 97.8 F 06/03/18 06:27 Pulse 122 06/03/18 09:00 Resp 16 06/03/18 09:00 BP 145/104 06/03/18 09:00 Pulse Ox 94 06/03/18 09:00 Auscultation: bilateral: clear Cardiovascular: irregular rhythm Results - Laboratory Findings CBC and BMP: 06/03/18 07:37 06/03/18 16:52 PT/INR, D-dimer PT 38.8 Seconds (9.4-12.1) H 06/02/18 12:32 Abnormal lab findings: Abnormal lab results Hct 35.0 % (35.3-44.9) L 06/03/18 07:37 RDW 15.5 % (11.5-14.5) H 06/03/18 07:37 PT 38.8 Seconds (9.4-12.1) H 06/02/18 12:32 APTT 36.4 Seconds (26.0-36.0) H 06/02/18 12:32 BUN 7 mg/dL (8-23) L 06/03/18 07:37 Calcium 5.6 mg/dL (8.6-10.3) L* 06/03/18 07:37 Venous Ioniz Calcium 0.73 mmol/L (1.15-1.35) L 06/03/18 07:49 Magnesium 1.5 mg/dL (1.6-2.6) L 06/03/18 07:37 ALT 4 Units/L (7-52) L 06/03/18 07:37 Serum Total Protein 5.1 g/dL (6.4-8.9) L 06/03/18 07:37 Albumin 2.8 g/dL (3.5-5.7) L 06/03/18 07:37 Globulin 2.3 g/dL (2.4-3.5) L 06/03/18 07:37 - Clinical Findings Intake & Output: Intake & Output 06/02/18 06/03/18 06/03/18 23:59 07:59 15:59 Intake Total 824 / 824 214 / 214 260 / 260 Output Total 350 / 350 Balance 824 / 824 -136 / -136 260 / 260 Weight 67 kg Consult Discharge Plan - Plan Referrals: Holley Alexander DO [Primary Care Provider] -
--- NOTE | 2018-06-03 10:29 | Nephrology Progress Note ---
Date of Encounter: 06/03/18 Time of Encounter: 10:05 - Assessment and Plan (1) Hypocalcemia Status: Acute trending better. Replete. Hemodynamically stable. (2) Hypokalemia Status: Acute trending better. Replete. Hemodynamically stable. (3) Hypomagnesemia Status: Acute trending better. Replete. Hemodynamically stable. (4) Atrial fibrillation with rapid ventricular response Status: Chronic As per primary. Subjective Principal diagnosis: Electrolyte abnormalities Interval history: Pt was seen/examined and she did not affirm N/V or CP. She did not affirm cramping. Objective - Vital Signs Vital signs: Vital Signs Temp Pulse Resp BP Pulse Ox 06/03/18 09:00 122 16 145/104 94 06/03/18 08:00 124 18 141/103 97 06/03/18 07:00 122 16 126/91 97 06/03/18 06:27 97.8 F 06/03/18 06:03 124 17 137/96 97 06/03/18 05:00 123 29 141/95 97 06/03/18 04:00 123 18 135/95 97 06/03/18 03:35 97.1 F L 06/03/18 03:24 121 06/03/18 03:00 120 13 113/78 97 06/03/18 02:00 121 19 136/94 94 06/03/18 01:00 121 9 134/92 95 06/03/18 00:08 98.1 F 06/02/18 23:30 121 06/02/18 20:00 98.4 F 128 20 109/76 94 06/02/18 19:48 125 06/02/18 19:00 125 22 113/83 96 06/02/18 18:03 133 20 158/96 97 06/02/18 18:00 98 06/02/18 17:47 125 06/02/18 17:09 16 121/102 06/02/18 16:24 129 18 124/84 100 06/02/18 15:24 133 18 92/61 99 06/02/18 14:57 129 18 114/85 100 06/02/18 13:58 132 22 130/89 99 06/02/18 11:44 97.7 F 156 20 141/109 100 Intake and Output 06/02/18 06/03/18 06/03/18 23:59 07:59 15:59 Intake Total 824 / 824 214 / 214 260 / 260 Output Total 350 / 350 Balance 824 / 824 -136 / -136 260 / 260 Intake: IV Fluids 824 / 824 214 / 214 260 / 260 0.9 % Sodium Chloride 500 ML @ 500 / 500 999 mls/hr IVC .Q31M ONE Rx#: [id number] Calcium Gluconate 1,000 MG In 0 220 / 220 110 / 110 .9 % Sodium Chloride 100 ML @ 220 mls/hr IVPB Q6HR PRN Rx#: [id number] Magnesium Sulfate 2 GM In 0.9 % 104 / 104 104 / 104 Sodium Chloride 100 ML @ 52 mls/hr IVPB Q6H PRN Rx#: [id number] Potassium Phosphate 44 MEQ In 0 0 / 0 260 / 260 .9 % Sodium Chloride 250 ML @ 40 mls/hr IVPB Q10H PRN Rx#: [id number] Output: Urine 350 / 350 Other: # Bowel Movements 2 Weight 67 kg Patient Weight 06/03/18 23:59 Weight 67 kg - General Appearance Exam: General appearance: well-developed, appears started age, obese, fatigue, frail EENT: ATNC, PERRL, mucous membranes moist Neck: supple Respiratory: clear Cardiology: no edema, regular rate, irregular rhythm, normal S1, normal S2 Gastrointestinal: normoactive bowel sounds, no tenderness, no guarding, obese Integumentary: no rash, warm and dry Neurologic: no focal deficit, no asterixis, alert and oriented x3 Musculoskeletal: no erythema, no cyanosis Psychiatric: mood/affect appropriate, cooperative - Lab 06/05/18 04:25 06/05/18 04:25 Most recent lab results Calcium 5.6 mg/dL (8.6-10.3) L* 06/03/18 07:37 Phosphorus 4.4 mg/dL (2.7-4.5) 06/03/18 07:37 Magnesium 1.5 mg/dL (1.6-2.6) L 06/03/18 07:37 Consult Discharge Plan - Plan Instructions: Loperamide (By mouth), Magnesium Oxide (By mouth) Referrals: Holley Alexander DO [Primary Care Provider] - 05/14/19 Prescriptions: Calcium Carbonate/Vitamin D3 [Calcium 500 + Vit D Caplet] 2 each PO BID 30 Days #120 tablet Loperamide [Imodium] 1 mg PO QID PRN 15 Days #60 udc PRN Reason: Diarrhea Magnesium Oxide [Mag-Ox] 400 mg PO DAILY 30 Days #30 tablet
[2018-06-03] MEDS ORDERED: Potassium Phosphate 44 MEQ in 0.9 % Sodium Chloride 250 ML IVPB PRN (10:43)
[2018-06-03] MEDS ORDERED: Ipratropium/Albuterol Neb 3 ML IH PRN (10:43)
[2018-06-03] MEDS: *HR* Rivaroxaban 10 MG TABLET PO SCH (16:59)
[2018-06-03 17:30] LABS: BUN/Creatinine Ratio 9 (6-26); Blood Urea Nitrogen 7 mg/dL (8-23); Calcium 5.9 mg/dL (8.6-10.3); Carbon Dioxide 24 mEq/L (23-29); Chloride 106 mEq/L (98-107); Glucose 98 mg/dL (70-105); Osmolality,Calculated 284 (280-300); Potassium 3.8 mEq/L (3.5-5.1); Sodium 138 mEq/L (136-145); eGFR For Non-African Americans > 60 (> 60)
[2018-06-03 17:47] LABS: VBG Ionized Calcium 0.84 mmol/L (1.15-1.35)
[2018-06-03] MEDS ORDERED: *HR* Heparin 5,000 UNIT/ML VIAL SQ SCH (18:00)
[2018-06-03] MEDS: Calcium Gluconate 2,000 MG in 0.9 % Sodium Chloride 100 ML IVPB PRN (21:08)
[2018-06-04] MEDS: Calcium Gluconate 2,000 MG in 0.9 % Sodium Chloride 100 ML IVPB PRN (05:36)
[2018-06-04] MEDS: *HR* Metoprolol 5 MG/5 ML VIAL IVP SCH (05:44)
[2018-06-04 05:52] LABS: VBG Ionized Calcium 0.91 mmol/L (1.15-1.35)
[2018-06-04 05:53] LABS: Basophils % 0.5 %; Eosinophils # 0.2 K/mcL (0.0-0.6); Eosinophils % 2.7 %; Hemoglobin 11.4 g/dL (11.5-15.4); Immature Granulocytes % 0.3 % (0-4); Lymphocytes % 29.8 %; Mean Corpuscular HGB Conc 32.6 g/dL (31.6-35.5); Mean Corpuscular Hemoglobin 29.6 pg (28.0-33.3); Mean Corpuscular Volume 90.9 fL (83.0-100.0); Mean Platelet Volume 11.8 fL (9.4-12.4); Monocytes # 0.5 K/mcL (0.0-1.3); Monocytes % 7.4 %; Neutrophils # 3.9 K/mcL (1.6-8.9); Platelet Count 215 K/mcL (140-400); Red Blood Count 3.85 M/mcL (3.82-4.97); Red Cell Distribution Width 15.7 % (11.5-14.5); Segmented Neutrophils % 59.3 %
[2018-06-04 06:00] LABS: INR 1.9; Prothrombin Time 21.9 Seconds (9.4-12.1)
[2018-06-04 06:10] LABS: BUN/Creatinine Ratio 15 (6-26); Blood Urea Nitrogen 10 mg/dL (8-23); Calcium 6.6 mg/dL (8.6-10.3); Carbon Dioxide 23 mEq/L (23-29); Chloride 104 mEq/L (98-107); Glucose 85 mg/dL (70-105); Magnesium 2.2 mg/dL (1.6-2.6); Osmolality,Calculated 280 (280-300); Potassium 3.9 mEq/L (3.5-5.1); Sodium 136 mEq/L (136-145); eGFR For Non-African Americans > 60 (> 60)
[2018-06-04] MEDS: Magnesium Oxide 400 MG TABLET PO SCH (08:06)
[2018-06-04] MEDS ORDERED: Loperamide 1 MG/5 ML UDC PO PRN (10:07)
--- NOTE | 2018-06-04 10:16 | Pulmonology Progress Note ---
Date of Encounter: 06/04/18 Time of Encounter: 10:00 Assessment and Plan (1) Atrial fibrillation with rapid ventricular response Current Visit: Yes Status: Chronic Patient presented with severe electrolyte imbalance hypomagnesemia hypocalcemia and due to diarrhea and his GI losses once the potassium and magnesium is corrected at 4 and 2 respectively cardiology is recommending cardiac motion at that point the meantime to start by mouth beta blockers patient was therapeutic in anticoagulation yesterday. To start Xarelto according to cardiology 06/04 after electrolytes was controlled patient ventricular response and was able to respond to rate controlling medications. Management according to cardiology. Appreciate their recs. (2) Hypomagnesemia Current Visit: Yes Status: Acute To replete according to ICU protocol to keep magnesium greater than 2. The main reason for this electrolyte imbalance looks like GI loss told patient that she should use loperamide if needed to control diarrhea. (3) Hypocalcemia Current Visit: Yes Status: Acute To replete according to ICU protocol almost normalized. Most likely is due to GI loss. (4) COPD (chronic obstructive pulmonary disease) Current Visit: Yes Status: Chronic Symptoms are stable send home on short-acting bronchodilators. Qualifiers: COPD type: unspecified COPD Qualified Code(s): J44.9 - Chronic obstructive pulmonary disease, unspecified (5) DVT prophylaxis Current Visit: Yes Status: Acute Patient is on Xarelto Subjective Principal diagnosis: ATRIAL FIB /Flutter with RVR Interval history: Patient feeling a lot better denies any palpitation no chest pain . Not much Much cough or sputum production. Objective PUL Vital signs: Last Vital Signs Temp 97.5 F L 06/04/18 07:00 Pulse 78 06/04/18 08:07 Resp 21 06/04/18 07:00 BP 153/75 06/04/18 07:00 Pulse Ox 97 06/04/18 07:00 Auscultation: bilateral: clear Cardiovascular: irregular rhythm Results - Laboratory Findings CBC and BMP: 06/04/18 05:30 06/04/18 05:30 PT/INR, D-dimer PT 21.9 Seconds (9.4-12.1) H 06/04/18 05:30 Abnormal lab findings: Abnormal lab results Hgb 11.4 g/dL (11.5-15.4) L 06/04/18 05:30 Hct 35.0 % (35.3-44.9) L 06/04/18 05:30 RDW 15.7 % (11.5-14.5) H 06/04/18 05:30 PT 21.9 Seconds (9.4-12.1) H 06/04/18 05:30 APTT 36.4 Seconds (26.0-36.0) H 06/02/18 12:32 Calcium 6.6 mg/dL (8.6-10.3) L 06/04/18 05:30 Venous Ioniz Calcium 0.91 mmol/L (1.15-1.35) L 06/04/18 05:49 ALT 4 Units/L (7-52) L 06/03/18 07:37 Serum Total Protein 5.1 g/dL (6.4-8.9) L 06/03/18 07:37 Albumin 2.8 g/dL (3.5-5.7) L 06/03/18 07:37 Globulin 2.3 g/dL (2.4-3.5) L 06/03/18 07:37 - Clinical Findings Intake & Output: Intake & Output 06/03/18 06/04/18 06/04/18 23:59 07:59 15:59 Intake Total 694 / 694 120 / 120 Output Total 900 / 900 450 / 450 Balance -206 / -206 -330 / -330 Weight 71.8 kg Consult Discharge Plan - Plan Referrals: Holley Alexander DO [Primary Care Provider] -
--- NOTE | 2018-06-04 11:58 | Cardiology Progress Note ---
Date of Encounter: 06/04/18 Time of Encounter: 12:00 Assessment and Plan (1) Atrial flutter Current Visit: Yes Status: Acute Per Cardiology: Previous records reviewed, "patient profoundly electrolyte depleted likely contributing to her AF RVR, repletion is underway which will make it easier to convert to SR or rate control. She has previously been on xarelto. It was discontinued yesterday in lieu of heparin 5000U SC. Will start metoprolol 50mg po BID, she is minimally symptomatic at this time. If continued RVR, can uptitrate BB." Patient on Lopressor 50 mg by mouth twice a day and back on Xarelto 20mg PO daily. Labs stable. Heart rates 50s to 70s per vital signs. No telemetry available for review as patient being transferred from ICU to stepdown unit. Regular rate and rhythm on exam with heart rate at 60 Titrate beta lina as needed. Cardial G we will sign off, reconsult as needed, follow-up arranged. Discussed and reviewed with Dr. Lancaster. Of note patient is DNR/Comfort Care arrest/DNI. Qualifiers: Atrial flutter type: unspecified Qualified Code(s): I48.92 - Unspecified atrial flutter Discussion w patient/family: The assessment and plan as outlined above was discussed with the patient and/or family members who expressed understanding and agreement. All questions were answered. Thank you for involving us in the care of your patient. Please call with any questions. Subjective Principal diagnosis: ATRIAL FIB /Flutter with RVR Interval history: Patient denies any chest pain, shortness of breath, palpitations. Denies any concerns or complaints. Objective Vital Signs, Last 4 Hours Temp Pulse Resp BP Pulse Ox 06/04/18 11:32 97.8 F 57 18 141/73 99 06/04/18 10:00 56 21 147/78 97 06/04/18 08:07 78 21 97 General: Conversant, No Apparent Distress HEENT: Atraumatic, Normocephaly, Mucus Membranes Moist Neck: No JVD, Normal carotid pulses Cardiac: Reg Rate and Rhythm, Normal S1 and S2, No Murmur Lungs: Normal Breath Sounds, No Wheeze, Rales, Rhonchi Neuro: Alert and responsive, No focal deficits noted Abdomen: Soft, Non-Tender Skin: No rashes noted on visualized skin Musculoskeletal: No Chest Wall Tenderness Extremities: No Clubbing, No Cyanosis, No Edema, Normal Pulses Results 06/04/18 05:30 06/04/18 05:30 Lab Results Laboratory Tests 06/02/18 06/04/18 06/04/18 12:32 05:30 05:30 Hgb 11.4 L Hct 35.0 L Creatinine 0.65 Est GFR (Non-Af Amer) > 60 Magnesium 2.2 TSH 3.507 ITS Impressions Chest X-Ray 06/02/18 12:07 IMPRESSION: 1. Minimal bibasilar atelectasis. 2. Pulmonary vascular congestion and/or chronic interstitial change. D/ / Keith Castillo MD / Keith Castillo MD Interpreting Provider: Keith Castillo MD Active Medications Albuterol/Ipratropium (Duoneb) 3 ml IH [id number] PRN PRN Reason: Shortness Of Breath/Wheezing Stop: 12/02/18 17:37 Calcium Gluconate 2,000 mg/ (Sodium Chloride) 120 mls @ 220 mls/hr IVPB Q6HR PRN PRN Reason: Hypocalcemia Stop: 12/02/18 17:19 Last Infusion: 06/04/18 06:20 Dose: Infused Magnesium Sulfate 2 gm/ Sodium (Chloride) 104 mls @ 52 mls/hr IVPB Q6H PRN PRN Reason: hypomagnesemia Stop: 12/02/18 17:19 Last Infusion: 06/03/18 23:25 Dose: Infused Potassium Phosphate 44 meq/ (Sodium Chloride) 260 mls @ 40 mls/hr IVPB Q10H PRN PRN Reason: Phosphate less than 3 Stop: 12/02/18 17:19 Sodium Phosphate 30 mmol/ (Sodium Chloride) 260 mls @ 42 mls/hr IVPB Q12H PRN PRN Reason: Hypophosphatemia Stop: 12/02/18 17:19 Loperamide HCl (Imodium) 1 mg PO QID PRN PRN Reason: Diarrhea Stop: 12/04/18 10:08 Magnesium Oxide (Mag-Ox) 400 mg PO DAILY CARMEL; Protocol Stop: 12/04/18 09:01 Last Admin: 06/04/18 08:06 Dose: 400 mg Metoprolol Tartrate (Lopressor) 50 mg PO BID [facility] Stop: 12/03/18 21:01 Last Admin: 06/04/18 08:06 Dose: 50 mg Rivaroxaban (Xarelto) 20 mg PO 1700 [facility] Stop: 12/03/18 17:01 Last Admin: 06/03/18 16:59 Dose: 20 mg Consult Discharge Plan - Plan Referrals: Holley Alexander DO [Primary Care Provider] -
--- NOTE | 2018-06-04 12:15 | Event Note ---
Date of Encounter: 06/04/18 Time of Encounter: 12:14 Nephrology Chart Review The multiple electrolyte abnormalities are most likely from her diarrhea, and sivakumar nearly resolved. Will sign-off at this point. Thank you for having consulted the [facility] group. Thank you.
[2018-06-04] MEDS: *HR* Rivaroxaban 10 MG TABLET PO SCH (16:54)
[2018-06-05 04:36] LABS: Basophils % 0.6 %; Eosinophils # 0.2 K/mcL (0.0-0.6); Eosinophils % 4.3 %; Hematocrit 30.7 % (35.3-44.9); Immature Granulocytes % 0.4 % (0-4); Lymphocytes % 41.5 %; Mean Corpuscular HGB Conc 31.9 g/dL (31.6-35.5); Mean Corpuscular Hemoglobin 29.7 pg (28.0-33.3); Mean Platelet Volume 11.9 fL (9.4-12.4); Monocytes # 0.5 K/mcL (0.0-1.3); Monocytes % 9.8 %; Neutrophils # 2.1 K/mcL (1.6-8.9); Platelet Count 180 K/mcL (140-400); Red Cell Distribution Width 15.7 % (11.5-14.5); Segmented Neutrophils % 43.4 %
[2018-06-05 04:44] LABS: Hemoglobin 9.8 g/dL (11.5-15.4)
[2018-06-05 04:54] LABS: BUN/Creatinine Ratio 18 (6-26); Blood Urea Nitrogen 15 mg/dL (8-23); Calcium 7.1 mg/dL (8.6-10.3); Carbon Dioxide 27 mEq/L (23-29); Chloride 106 mEq/L (98-107); Glucose 77 mg/dL (70-105); Magnesium 1.8 mg/dL (1.6-2.6); Osmolality,Calculated 284 (280-300); Phosphorous 2.9 mg/dL (2.7-4.5); Potassium 4.2 mEq/L (3.5-5.1); Sodium 137 mEq/L (136-145); eGFR For Non-African Americans > 60 (> 60)
[2018-06-05 07:04] VITALS: BP 148/69
[2018-06-05] MEDS ORDERED: Calcium Gluconate 2,000 MG in 0.9 % Sodium Chloride 100 ML IVPB ONE (07:41)
[2018-06-05] MEDS: Magnesium Oxide 400 MG TABLET PO SCH (09:56)
--- NOTE | 2018-06-05 11:03 | Discharge Summary ---
- NOTES TO OUTPATIENT PROVIDER Notes to Outpatient Provider: 1. Pt present to ER for severe hypocalcemia, hypomagnesia, and hypokalemia, most likely due to her chronic diarrhea. Please f/u her electrolytes in one week. Orders not resulted at time of discharge: Pending orders 06/05/18 04:00 Ionized Calcium,venous blood AM 0400 Date of Encounter: 06/05/18 Time of Encounter: 10:00 - Discharge Diagnosis (1) Hypocalcemia Priority: Primary Status: Acute (2) Hypokalemia Priority: Primary Status: Acute (3) Hypomagnesemia Priority: Primary Status: Acute (4) Atrial fibrillation with rapid ventricular response Priority: Primary Status: Chronic (5) Hypothyroid Priority: Secondary Status: Chronic Qualifiers: Hypothyroidism type: acquired Qualified Code(s): E03.9 - Hypothyroidism, unspecified Hospital course: Ms. Ernandez is a 83 year old female present to ER with hand tingling, she was found severe hypocalcemia, hypokalemia, and hypomagnesemia. Pt was admitted to ICU for closely monitoring and given electrolytes supplement. Pt also has A Fib RVR. She has hx of A Fib on xarelto. Cardio and nephro consults saw pt. Her electrolytes abnormality was considered due to chronic diarrhea, which she started since Sep. She was given supplement and her symptoms resolved, electrolytes level back to normal. Pt return her baseline level and will d/c home and cont closely f/u with PCP. I have seen and examine pt today, she is AAO x 3, feels fine, no complaints. Vitals stable. Her megnesium is 1.8 today, calcium 7.1 but corrected calcium level is 8.06. Pt will give extra iv Calcium 2 g and magnesium 2 g today and d/c home with po supplement and repeat lab in one week and follow up with PCP as OP. - Time Spent with Patient Total time spent providing and/or coordinating discharge services: 30 min Less than 30 minutes - Discharge Medications Prescriptions: Calcium Carbonate/Vitamin D3 [Calcium 500 + Vit D Caplet] 2 each PO BID 30 Days #120 tablet Loperamide [Imodium] 1 mg PO QID PRN 15 Days #60 udc PRN Reason: Diarrhea Magnesium Oxide [Mag-Ox] 400 mg PO DAILY 30 Days #30 tablet Home Medications: Omeprazole [PriLOSEC] 40 mg PO DAILY #30 capsule. 04/11/15 [Rx] Rivaroxaban [Xarelto] 20 mg PO DAILY #30 tablet 04/11/15 [Rx] Atorvastatin Calcium [Lipitor] 20 mg PO HS 07/12/16 [History] Losartan Potassium [Cozaar] 50 mg PO DAILY 06/16/17 [History] Levothyroxine Sodium 125 mcg PO DAILY 06/02/18 [History] Metoprolol Tartrate 50 mg PO BID 06/02/18 [History] Calcium Carbonate/Vitamin D3 [Calcium 500 + Vit D Caplet] 2 each PO BID 30 Days #120 tablet 06/05/18 [Rx] Loperamide [Imodium] 1 mg PO QID PRN 15 Days #60 udc 06/05/18 [Rx] Magnesium Oxide [Mag-Ox] 400 mg PO DAILY 30 Days #30 tablet 06/05/18 [Rx] Allergies/Adverse Reactions: Allergy/AdvReac Type Severity Reaction Status Date / Time hydrochlorothiazide Allergy Rash Verified 06/16/17 10:47 Date of admission: 06/02/18 20:11 Primary care physician: Shy Snider Consults: 06/02/18 16:02 Consult to Cardiology [CONS] Stat Comment: Consulting Provider: Cardiology Jeanne Reason for Consult: afib on xarelto, now on cardizem drip with HR in 130s Time Notified: 16:03 Call Completed: Yes 06/02/18 18:46 Consult to Invasive Line Access Team [CONS] Routine Reason for Consult: Will require several infusions Line Type: EPIV Discharging clinician: Natalie Krishnamurthy Anticipated date of discharge: 06/05/18 - Constitutional Vitals: Temp Pulse Resp BP Pulse Ox 97.8 F 54 16 148/69 99 06/05/18 06:58 06/05/18 06:58 06/05/18 06:58 06/05/18 06:58 06/05/18 06:58 General appearance: Present: A&O X 3, pleasant, no acute distress, answers questions appropriately Exam: in NAD - Head Head exam: Present: atraumatic, normocephalic - Eye Eye exam: Present: PERRL, conjuntiva pink, sclera anicteric Pupils: Present: PERRL - Neck Neck exam general surgery: Present: supple, trachea midline. Absent: lymphadenopathy - Respiratory Respiratory exam: Present: CTAB. Absent: accessory muscle use, rales, rhonchi, wheezes - Cardiovascular Cardiovascular exam: Present: RRR, +S1, +S2. Absent: diastolic murmur, gallop, rubs, systolic murmur - GI/Abdominal GI/Abdominal exam: Present: normal bowel sounds, soft, no peritoneal signs. Absent: distended, tenderness - Extremities Exam Extremities exam: Present: warm, radial pulses palpable and symmetrical. Absent: calf tenderness, cyanotic, pedal edema - Neurological Exam Neurological exam: Present: CN II-XII intact, oriented X3, no focal deficits. Absent: pronater drift, facial droop, speech deficit - Skin Skin exam: Present: dry, intact - Patient Status Disposition: Home, Self-Care Condition: Good Functional capacity at discharge: uses cane/walker Overall status at discharge: patient is back to baseline - Discharge Instructions Follow Up With: Holley Alexander DO [Primary Care Provider] - 05/14/19 - Diet and Activity Activity: increase activity as tolerated Diet: advance to your usual diet
--- NOTE | 2018-06-09 10:14 | Electrocardiograph Report ---
[address] [address] Test Date: 2018-06-03 Pat Name: Angie Ernandez Department: 112 Room: [facility] Gender: F Teletypesetter Monitor: : 1935 Requested By: Eddie Lancaster Order Number: [id number] Reading MD: Juan Carlos Martinez Measurements Intervals [place] Rate: 129 P: IA: 0 QRS: 46 QRSD: 82 T: -58 QT: 327 QTc: 403 Interpretive Statements ATRIAL FLUTTER/TACHYCARDIA WITH RAPID VENTRICULAR RESPONSE Electronically Signed On 06-09-2018 10:13:07 EDT by Juan Carlos Martinez
== END 2018-06-05 12:03 | disposition home or self-care (01) | DRG 392 ==
LOC: EMEROOARM 11:38 → 3BNU 11:38 → ICNU 17:28 → 2ANU 06-04 12:32
PROVIDERS: ADMIT Internal Medicine Nephrology; ATTEND Internal Medicine Nephrology

== ENCOUNTER 2018-07-11 10:26 | Inpatient (IN) ==
--- NOTE | 2018-07-11 10:39 | Emergency Department Note ---
Disposition Clinical Impression: Hypocalcemia Disposition: Admitted As Inpatient Condition: Good Time of Disposition: 19:50 General Adult HPI - General Chief complaint: ED Shortness of Breath/Dyspnea Stated complaint: dyspnea, anxiety Time Seen by Provider: 07/11/18 10:27 Source: patient, EMS Mode of arrival: EMS Limitations: no limitations - History of Present Illness HPI Narrative: This is an 83-year-old female brought in by EMS because of shortness breath. Her main complaint was feeling shaky. She has a very rapid respiratory rate, and why he is unclear. She denies chest pain. Pain Scale: 0 - Related Data Home Medications Medication Instructions Recorded Confirmed Atorvastatin Calcium [Lipitor] 20 mg PO HS 07/12/16 07/11/18 Losartan Potassium [Cozaar] 50 mg PO DAILY 06/16/17 07/11/18 Levothyroxine Sodium 125 mcg PO DAILY 06/02/18 07/11/18 Metoprolol Tartrate 50 mg PO BID 06/02/18 07/11/18 Previous Rx's Medication Instructions Recorded Omeprazole [PriLOSEC] 40 mg PO DAILY #30 capsule. 04/11/15 Rivaroxaban [Xarelto] 20 mg PO DAILY #30 tablet 04/11/15 Allergies Allergy/AdvReac Type Severity Reaction Status Date / Time hydrochlorothiazide Allergy Rash Verified 06/16/17 10:47 All systems ED: reviewed and negative except as stated. Cardiovascular: Denies: chest pain Respiratory: Reports: dyspnea Neurological: Reports: other (Tremor) Past Medical History - Past Medical History Medical history: Reports: non-contributory, arthritis, atrial fibrillation, COPD, hyperlipidemia, hypertension, osteoporosis, renal disease, thyroid disease, other Surgical history: Reports: orthopedic, other, other (Bowel surgery) Psychiatric history: Reports: no psych history NURSING ATTENDANT history: Reports: no NURSING ATTENDANT history - Social History Smoking Status: Former smoker Smokeless Tobacco Status: No Alcohol use: Reports: none Drug use: Reports: none Physical Exam - General Limitations: no limitations General appearance: alert, anxious, in distress (In moderate distress) - Head Head exam: atraumatic, normocephalic, normal inspection - Eye Eye exam: Present: normal appearance, PERRL, EOMI - Chest Chest inspection: Present: normal inspection, symmetric chest wall rise - Respiratory Respiratory exam: Present: normal lung sounds bilaterally, other (Respiratory rate is rapid but nonlabored). Absent: wheezes, accessory muscle use, prolonged expiratory phase - Cardiovascular Cardiovascular exam: Present: regular rate, irregular rhythm, normal heart sounds - Abdominal Exam Abdominal exam: Present: soft, Non-Tender. Absent: tenderness, distention, guarding, rebound, rigidity - Extremities Exam Extremities exam: Present: normal inspection, pedal edema (Nonpitting bilateral pedal edema). Absent: tenderness, joint swelling - Neurological Exam Neurological exam: Present: alert - Psychiatric Psychiatric exam: Present: normal affect, normal mood - Skin Skin exam: Present: warm, dry, intact, normal color Course Course Narrative: This is an 83-year-old female with tachypnea of unknown etiology. Vital Signs Temperature 98.0 F 07/11/18 10:27 Pulse Rate 98 07/11/18 10:27 Respiratory Rate 34 07/11/18 10:27 Blood Pressure 138/80 07/11/18 10:27 O2 Sat by Pulse Oximetry 100 07/11/18 10:27 Temperature 98.0 F 07/11/18 10:27 Pulse Rate 67 07/11/18 19:16 Respiratory Rate 22 07/11/18 19:16 Blood Pressure 162/85 07/11/18 19:16 O2 Sat by Pulse Oximetry 99 07/11/18 19:16 Oxygen Delivery Oxygen Delivery Room Air Medical Decision Making - [facility] Narrative Medical decision making narrative: This is an 83-year-old female with tachypnea of unknown etiology and hypoc alcemia. 2 g of calcium gluconate was given for hypocalcemia I discussed her case with the on-call hospitalist, who accepted her for admission - Lab Data Lab results reviewed: Yes I reviewed the patient's lab results. Lab results narrative: CBC shows anemia at 11.2 and 32.4 BMP shows hypocalcemia at 4.8 Troponin was slightly elevated 04 Lactic acid was elevated at 2.8 Repeat lactate was 1.4 D-dimer was elevated at 1137 Result diagrams: 07/11/18 10:45 07/11/18 10:45 Lab Results 07/11/18 07/11/18 07/11/18 Range/Units 10:45 10:45 10:45 WBC 6.0 (4.3-11.1) K/mcL RBC 3.68 L (3.82-4.97) M/mcL Hgb 11.2 L (11.5-15.4) g/dL Hct 33.4 L (35.3-44.9) % MCV 90.8 (83.0-100.0) fL MCH 30.4 (28.0-33.3) pg MCHC 33.5 (31.6-35.5) g/dL RDW 15.9 H (11.5-14.5) % Plt Count 183 (140-400) K/mcL MPV 12.4 (9.4-12.4) fL Immature Gran % 0.5 (0-4) % Seg Neutrophils % 59.8 % Lymphocytes % 28.4 % Monocytes % 9.2 % Eosinophils % 1.3 % Basophils % 0.8 % Neutrophils # 3.6 (1.6-8.9) K/mcL Lymphocytes # 1.7 (0.6-4.6) K/mcL Monocytes # 0.6 (0.0-1.3) K/mcL Eosinophils # 0.1 (0.0-0.6) K/mcL Basophils # 0.1 (0.0-0.2) K/mcL D-Dimer 1137 H (0-500) ng/mLFEU Sodium 140 (136-145) mEq/L Potassium 3.7 (3.5-5.1) mEq/L Chloride 107 (98-107) mEq/L Carbon Dioxide 20 L (23-29) mEq/L BUN 17 (8-23) mg/dL Creatinine 1.14 (0.60-1.20) mg/dL Est GFR ( Amer) 55 L (> 60) Est GFR (Non-Af Amer) 46 L (> 60) BUN/Creatinine Ratio 15 (6-26) Glucose 87 (70-105) mg/dL Calculated Osmolality 291 (280-300) Lactic Acid (0.5-2.2) mmol/L Calcium 4.8 L* (8.6-10.3) mg/dL Troponin I 0.04 H* (< 0.04) ng/mL 07/11/18 07/11/18 Range/Units 10:45 14:25 WBC (4.3-11.1) K/mcL RBC (3.82-4.97) M/mcL Hgb (11.5-15.4) g/dL Hct (35.3-44.9) % MCV (83.0-100.0) fL MCH (28.0-33.3) pg MCHC (31.6-35.5) g/dL RDW (11.5-14.5) % Plt Count (140-400) K/mcL MPV (9.4-12.4) fL Immature Gran % (0-4) % Seg Neutrophils % % Lymphocytes % % Monocytes % % Eosinophils % % Basophils % % Neutrophils # (1.6-8.9) K/mcL Lymphocytes # (0.6-4.6) K/mcL Monocytes # (0.0-1.3) K/mcL Eosinophils # (0.0-0.6) K/mcL Basophils # (0.0-0.2) K/mcL D-Dimer (0-500) ng/mLFEU Sodium (136-145) mEq/L Potassium (3.5-5.1) mEq/L Chloride (98-107) mEq/L Carbon Dioxide (23-29) mEq/L BUN (8-23) mg/dL Creatinine (0.60-1.20) mg/dL Est GFR ( Amer) (> 60) Est GFR (Non-Af Amer) (> 60) BUN/Creatinine Ratio (6-26) Glucose (70-105) mg/dL Calculated Osmolality (280-300) Lactic Acid 2.8 H 1.4 (0.5-2.2) mmol/L Calcium (8.6-10.3) mg/dL Troponin I (< 0.04) ng/mL - Radiology Data Radiology results reviewed: Yes I reviewed the patient's radiology results. CT chest showed no pulmonary embolism and no other abnormalities - EKG Data EKG #1 EKG attestation: Yes I reviewed and interpreted this EKG. EKG results narrative: ECG shows an irregular rhythm at 84 bpm there is most likely atrial flutter with what appear to be occasional P waves but I believe that these are flutter waves. Normal axis, normal ST and T waves Critical Care Time Critical Care Time: Yes Total Critical Care Time: 30 Attestation: 20 minutes of critical care time was invested independent of separately billable procedures
[2018-07-11 10:56] LABS: Basophils # 0.1 K/mcL (0.0-0.2); Basophils % 0.8 %; Eosinophils # 0.1 K/mcL (0.0-0.6); Eosinophils % 1.3 %; Hematocrit 33.4 % (35.3-44.9); Hemoglobin 11.2 g/dL (11.5-15.4); Immature Granulocytes % 0.5 % (0-4); Lymphocytes # 1.7 K/mcL (0.6-4.6); Lymphocytes % 28.4 %; Mean Corpuscular HGB Conc 33.5 g/dL (31.6-35.5); Mean Corpuscular Hemoglobin 30.4 pg (28.0-33.3); Mean Corpuscular Volume 90.8 fL (83.0-100.0); Mean Platelet Volume 12.4 fL (9.4-12.4); Monocytes # 0.6 K/mcL (0.0-1.3); Monocytes % 9.2 %; Neutrophils # 3.6 K/mcL (1.6-8.9); Platelet Count 183 K/mcL (140-400); Red Blood Count 3.68 M/mcL (3.82-4.97); Red Cell Distribution Width 15.9 % (11.5-14.5); Segmented Neutrophils % 59.8 %
[2018-07-11 11:22] LABS: Troponin I 0.04 ng/mL (< 0.04)
[2018-07-11 11:40] LABS: Calcium 4.8 mg/dL (8.6-10.3); Potassium 3.7 mEq/L (3.5-5.1)
[2018-07-11] MEDS ORDERED: Calcium Gluconate 2,000 MG in 0.9 % Sodium Chloride 100 ML IVPB ONE (11:46)
--- NOTE | 2018-07-11 16:36 | Electrocardiograph Report ---
[employer] Test Date: 2018-07-11 Pat Name: Angie Ernandez Department: EXAM15 Room: Gender: F Tile Layer: : 1935 Requested By: Cj Farrar Order Number: [id number] Reading MD: Hari Molina Measurements Intervals [place] Rate: 84 P: 86 MA: 139 QRS: 72 QRSD: 86 T: 58 QT: 414 QTc: 490 Interpretive Statements Sinus rhythm Multiple premature complexes, vent & supraven Minimal ST depression, anterolateral leads Borderline prolonged QT interval Electronically Signed On 07-11-2018 16:35:26 EST by Hari Molina
[2018-07-11] MEDS ORDERED: Isovue-370 500 ML INFUS..BTL IV ONE (17:02)
--- NOTE | 2018-07-11 20:48 | Internal Med History&Physical ---
Addendum entered and electronically signed by Renan Rico MD 07/12/18 00:22: NOTE: I SAW AND ASSESSED PATIENT ON 07-11-18 AT 22:45, NOT 07-12-18. Original Note: <Aj Epstein - Last Filed: 07/11/18 23:46> Date of Encounter: 07/11/18 Time of Encounter: 20:48 Internal Medicine - H&P: HPI Chief complaint: exertional dyspnea Admitted From: Emergency Dept Plans for Post Hospital Care: Home History of present illness: Ms. Ernandez is a 83 year old female with PMHx of A. fib, COPD, HLD, HTN, renal disease, osteoporosis, thyroid disease, and small bowel resection admitted from the ED for evaluation of exertional dyspnea and hypocalcemic. Patient states she woke up this AM with exertional dyspnea, uses a walker and states that she becomes dyspneic with short distances. Denies other symptoms such as numbness, tingling, muscle cramping, cough, congestion or chest pain. Patient states it is normal for her to have 3-5 episodes of diarrhea daily mostly in the morning. This has been occurring since her prior bowel surgery. Denies hematochezia or melena or abdominal pain. Past Med Surg Social Fam HX - Past Medical History Medical history: non-contributory, arthritis, atrial fibrillation, COPD, hyperlipidemia, hypertension, osteoporosis, renal disease, thyroid disease, other Additional medical history: ulcer Psychiatric history: no psych history - Past Surgical History Surgical History: orthopedic, other, other (Bowel surgery) Additional surgical history: bowel resection - Social History Smoking Status: Former smoker Smokeless Tobacco Status: No Alcohol use: none Drug use: none - Family History Father Adopted: No Family Member Ethnicity: Non- Living Status: Hx Family Cardiac Disorders: No Hx Family Respiratory Disorders: Yes (emphysema) Hx Family Cancer: No Hx Family GI Disorders: No Hx Family Endocrine Disorder: No Hx Family Neuromuscular Disorders: No Hx Family Neurologic Disorders: No Hx Family HEENT Disorders: No Hx Family Autoimmune Disorders: No Mother Adopted: No Living Status: Hx Family Cardiac Disorders: Yes Internal Medicine - H&P: Meds Omeprazole [PriLOSEC] 40 mg PO DAILY #30 capsule. 04/11/15 [Rx] Rivaroxaban [Xarelto] 20 mg PO DAILY #30 tablet 04/11/15 [Rx] Atorvastatin Calcium [Lipitor] 20 mg PO HS 07/12/16 [History] Losartan Potassium [Cozaar] 50 mg PO DAILY 06/16/17 [History] Levothyroxine Sodium 125 mcg PO DAILY 06/02/18 [History] Metoprolol Tartrate 50 mg PO BID 06/02/18 [History] Allergy/AdvReac Type Severity Reaction Status Date / Time hydrochlorothiazide Allergy Rash Verified 06/16/17 10:47 All Systems PM: A 10-system review of systems was performed and is negative for pertinent findings except as documented above in the HPI. - Constitutional Constitutional: no fever(s), no weakness - EENT Eyes: as per HPI - Cardiovascular Cardiovascular ROS IM: as per HPI, dyspnea, dyspnea on exertion, no chest pain, no edema, no palpitations, no syncope - Respiratory Respiratory: as per HPI, dyspnea, dyspnea on exertion, no cough, no wheezing, no chest congestion - Gastrointestinal Gastrointestinal: as per HPI, diarrhea, no abdominal pain, no nausea - Genitourinary Genitourinary: as per HPI - Musculoskeletal Musculoskeletal ROS IM: no arthralgias, no back pain, no muscle cramps, no muscle weakness, no numbness, no tingling - Integumentary Integumentary IM: as per HPI - Neurological Neurological ROS: as per HPI - Psychiatric Psychiatric: as per HPI - Constitutional Vitals: Temp Pulse Resp BP Pulse Ox 98.0 F 76 18 142/76 99 07/11/18 10:27 07/11/18 20:34 07/11/18 20:00 07/11/18 20:34 07/11/18 20:34 General appearance: Present: A&O X 3, no acute distress Exam: Patient pleasant. - Head Head exam: Present: atraumatic, normal inspection, normocephalic - Eye Eye exam: Present: EOMI, normal appearance, PERRL - Neck Neck exam general surgery: Present: full ROM, supple. Absent: tenderness - Respiratory Respiratory exam: Present: CTAB. Absent: chest wall tenderness - Cardiovascular Cardiovascular exam: Present: irregular rhythm. Absent: tachycardia - GI/Abdominal GI/Abdominal exam: Present: normal bowel sounds, soft, no peritoneal signs. Absent: rebound, rigid, tenderness - Extremities Exam Extremities exam: Present: normal capillary refill, normal inspection, warm, radial pulses palpable and symmetrical. Absent: calf tenderness, pedal edema - Back Exam Back exam: Present: normal inspection - Neurological Exam Neurological exam: Present: alert, oriented X3, no focal deficits - Psychiatric Psychiatric exam: Present: normal affect, normal mood - Skin Skin exam: Present: intact, warm Internal Med - H&P Results - Labs CBC & Chem 7: 07/11/18 23:18 07/11/18 10:45 Labs: Short CBC 07/11/18 Range/Units 10:45 WBC 6.0 (4.3-11.1) K/mcL Hgb 11.2 L (11.5-15.4) g/dL Hct 33.4 L (35.3-44.9) % Plt Count 183 (140-400) K/mcL Neutrophils # 3.6 (1.6-8.9) K/mcL BMP 07/11/18 10:45 Sodium 140 Potassium 3.7 Chloride 107 Carbon Dioxide 20 L BUN 17 Creatinine 1.14 Glucose 87 Calcium 4.8 L* Cardiac Enzymes 07/11/18 Range/Units 10:45 Troponin I 0.04 H* (< 0.04) ng/mL - EKG Data -: EKG Interpreted by Myself EKG shows normal: axis, intervals, QRS complexes (WNL), ST-T waves Rate: normal - Impressions ITS Impressions Chest X-Ray 07/11/18 10:27 IMPRESSION: Persistently enlarged cardiomediastinal silhouette. No radiographic evidence of acute cardiopulmonary process. D/ / Drew Ashraf MD / Drew Ashraf MD Interpreting Provider: Drew Ashraf MD Chest CTA 07/11/18 17:02 IMPRESSION: No evidence of pulmonary embolism or acute pulmonary abnormality. Tiny hiatus hernia. D/ / Holden Maradiaga / Holden Maradiaga Interpreting Provider: Holden Maradiaga - Diagnostic Studies CT scan - chest Status: image reviewed by me - Assessment and plan (1) Hypocalcemia Current Visit: Yes Status: Acute Assessment and plan: Suspect secondary to GI loss Recently admitted to hospital for a.fib with RVR and electrolyte abnormalities, does not appear to be on supplementation Admits to multiple episodes of diarrhea daily since small bowel surgery Ca2: 4.8 Na and K WNL Recently worked up for PTH etiology and negative EKG intervals WNL and no QT prolonging Plan: - Monitor and replace electrolytes - Magnesium and ionized calcium pending - Vit D labs ordered - Nutrition consult placed for home supplementation (2) Exertional dyspnea Current Visit: Yes Status: Acute Assessment and plan: No signs of infectious etiology CTA chest in the ED completely normal No lower extremity edema or rales on exam Possibly due to dehydration secondary to GI losses Plan: - Replace electrolyte abnormalities - Continue to monitor - 500ml Bolus (3) Atrial fibrillation Current Visit: No Status: Chronic Assessment and plan: Rate controlled at this time Continue to monitor Qualifiers: Atrial fibrillation type: chronic Qualified Code(s): I48.2 - Chronic atrial fibrillation (4) Elevated troponin Current Visit: Yes Status: Acute Assessment and plan: Suspect due to increased demand from dehydration Troponin 0.04 Plan: - Trend q6h (5) DVT prophylaxis Current Visit: No Status: Acute Assessment and plan: On Xarelto for a. fib, continuing home medications tomorrow - Time Spent With Patient Total time spent is greater than 50% in coordination of care (as documented) at patient's floor/unit and/or counseling patient: <Renan Rico - Last Filed: 07/12/18 00:18> Date of Encounter: 07/12/18 Time of Encounter: 22:45 - Constitutional Constitutional: no chills, no fever(s) - EENT Eyes: no blurry vision, no change in vision Ears: no tinnitus Nose, mouth and throat: no sore throat - Cardiovascular Cardiovascular ROS IM: dyspnea, dyspnea on exertion, irregular heart rhythm, no chest pain, no lightheadedness - Respiratory Respiratory: no hemoptysis, no chest congestion, no excessive phlegm production - Gastrointestinal Gastrointestinal: diarrhea, no nausea, no vomiting - Genitourinary Genitourinary: no dysuria, no flank pain, no hematuria - Musculoskeletal Musculoskeletal ROS IM: tingling, no muscle cramps, no muscle weakness - Integumentary Integumentary IM: no rash - Neurological Neurological ROS: paresthesias, tingling, no dizziness, no focal weakness, no frequent falls, no headache(s), no numbness - Psychiatric Psychiatric: no anxiety, no depression - Endocrine Endocrine IM: no polydipsia, no polyuria - Allergic/Immunologic Allergic/Immunologic: no GI upset with certain foods - Constitutional Vitals: Temp Pulse Resp BP Pulse Ox 98.1 F 71 16 159/80 99 07/11/18 23:56 07/11/18 22:00 07/11/18 22:00 07/11/18 22:00 07/11/18 22:00 General appearance: Present: A&O X 3, no acute distress - Head Head exam: Present: normal inspection - Eye Eye exam: Present: EOMI, PERRL. Absent: scleral icterus - ENT ENT exam: Present: mucous membranes dry, normal exam, normal oropharynx - Neck Neck exam general surgery: Present: full ROM, supple. Absent: tenderness - Respiratory Respiratory exam: Present: CTAB. Absent: chest wall tenderness, rales, respiratory distress, rhonchi, wheezes - Cardiovascular Cardiovascular exam: Present: irregular rhythm, +S1, +S2. Absent: diastolic murmur, systolic murmur - GI/Abdominal GI/Abdominal exam: Present: normal bowel sounds, soft. Absent: guarding, hepatomegaly, mass, rebound, splenomegaly, tenderness - Extremities Exam Extremities exam: Present: normal capillary refill, warm, radial pulses palpable and symmetrical. Absent: tenderness - Back Exam Back exam: Absent: CVA tenderness (L), CVA tenderness (R) - Neurological Exam Neurological exam: Present: alert, oriented X3, no focal deficits, strengths equal and symetr throughout - Psychiatric Psychiatric exam: Present: normal affect, normal mood - Skin Skin exam: Present: intact, warm Internal Med - H&P Results - Labs CBC & Chem 7: 07/11/18 23:18 07/11/18 23:18 Labs: Short CBC 07/11/18 07/11/18 Range/Units 10:45 23:18 WBC 6.0 5.7 (4.3-11.1) K/mcL Hgb 11.2 L 10.5 L (11.5-15.4) g/dL Hct 33.4 L 31.8 L (35.3-44.9) % Plt Count 183 171 (140-400) K/mcL Neutrophils # 3.6 3.1 (1.6-8.9) K/mcL BMP 07/11/18 07/11/18 10:45 23:18 Sodium 140 138 Potassium 3.7 3.2 L Chloride 107 106 Carbon Dioxide 20 L 22 L BUN 17 12 Creatinine 1.14 1.00 Glucose 87 65 L Calcium 4.8 L* 5.0 L* Cardiac Enzymes 07/11/18 Range/Units 10:45 Troponin I 0.04 H* (< 0.04) ng/mL - Impressions ITS Impressions Chest X-Ray 07/11/18 10:27 IMPRESSION: Persistently enlarged cardiomediastinal silhouette. No radiographic evidence of acute cardiopulmonary process. D/ / Derw Ashraf MD / Drew Ashraf MD Interpreting Provider: Drew Ashraf MD Chest CTA 07/11/18 17:02 IMPRESSION: No evidence of pulmonary embolism or acute pulmonary abnormality. Tiny hiatus hernia. D/ / Holden Maradiaga / Holden Maradiaga Interpreting Provider: Holden Maradiaga - Diagnostic Studies Chest x-ray Status: image reviewed by me (large cardiac shadow; CTA negative) - Time Spent With Patient Total time spent is greater than 50% in coordination of care (as documented) at patient's floor/unit and/or counseling patient: - Attending Attestation I discussed the patient [facility], past medical history, review of systems, exam findings, lab data, and imaging findings with Dr. Epstein. I then saw and examined patient independently as well. Patient has a history of chronic electrolyte imbalance and chronic diarrhea. I reviewed her old records and operative notes. Of note, she had a significant small bowel resection in September of this year where she had about 38 cm of small bowel resected due to bowel ischemia and injury. Given her history of chronic electrolyte imbalance, chronic diarrhea, and worsening chronic atrial fibrillation, I suspect she is losing electrolytes, fluids, and nutrition due to short gut syndrome. We will monitor her electrolytes closely and replace them as necessary. I also asked Dr. Epstein to consult nutrition and she will likely need nutritional support given her short gut syndrome. She appears to be in chronic atrial fibrillation, but she is rate controlled. She feels much better with calcium supplementation since admission compared to her symptoms prior to ER visit. Other than my comments above and noted exam findings, I agree with Dr. Epstein's assessment and plan.
[2018-07-11] MEDS ORDERED: Potassium Phosphate 44 MEQ in 0.9 % Sodium Chloride 250 ML IVPB PRN (21:00)
[2018-07-11] MEDS ORDERED: 0.9 % Sodium Chloride 500 ML IVC ONE (23:20)
[2018-07-11 23:31] LABS: Basophils % 0.5 %; Eosinophils # 0.1 K/mcL (0.0-0.6); Eosinophils % 1.6 %; Hematocrit 31.8 % (35.3-44.9); Hemoglobin 10.5 g/dL (11.5-15.4); Immature Granulocytes % 0.5 % (0-4); Lymphocytes # 1.9 K/mcL (0.6-4.6); Lymphocytes % 32.9 %; Mean Corpuscular Hemoglobin 30.1 pg (28.0-33.3); Mean Corpuscular Volume 91.1 fL (83.0-100.0); Mean Platelet Volume 12.1 fL (9.4-12.4); Monocytes # 0.6 K/mcL (0.0-1.3); Monocytes % 10.7 %; Neutrophils # 3.1 K/mcL (1.6-8.9); Platelet Count 171 K/mcL (140-400); Red Blood Count 3.49 M/mcL (3.82-4.97); Red Cell Distribution Width 15.8 % (11.5-14.5); Segmented Neutrophils % 53.8 %
[2018-07-11 23:36] LABS: VBG Ionized Calcium 0.67 mmol/L (1.15-1.35)
[2018-07-11 23:52] LABS: BUN/Creatinine Ratio 12 (6-26); Blood Urea Nitrogen 12 mg/dL (8-23); Carbon Dioxide 22 mEq/L (23-29); Chloride 106 mEq/L (98-107); Glucose 65 mg/dL (70-105); Magnesium < 0.5 mg/dL (1.6-2.6); Osmolality,Calculated 284 (280-300); Phosphorous 3.2 mg/dL (2.7-4.5); Potassium 3.2 mEq/L (3.5-5.1); Sodium 138 mEq/L (136-145); eGFR For Non-African Americans 53 (> 60)
[2018-07-12] MEDS ORDERED: Mag Hydrox/Al Hydrox/Simeth 30 ML UDC PO PRN (01:54)
[2018-07-12 03:28] LABS: Bilirubin,Urine Negative (Negative); Blood,Urine Negative (Negative); Clarity,Urine Clear (Clear); Color,Urine Yellow (Yellow); Glucose,Urine (UA) Normal (Normal); Ketones,Urine Trace mg/dL (Negative); Leukocyte Esterase,Urine Large (Negative); Nitrite,Urine Negative (Negative); Protein,Urine Trace mg/dL (Neg-Trace); Specific Gravity,Urine > 1.030 (1.010-1.025); Urobilinogen,Urine Normal (Normal)
[2018-07-12 03:30] LABS: Bacteria,Urine Few per hpf (None-Few); Hyaline Casts,Urine None Seen per lpf (None-Few); RBC,Urine 0-3 per hpf (0-3); Squamous Epithelial Cell,Urine Many per lpf (None-Few); WBC,Urine 50-100 per hpf (0-3)
[2018-07-12 03:54] LABS: Yeast,Urine Few per hpf (None Seen)
[2018-07-12] MEDS ORDERED: *HR* Rivaroxaban 10 MG TABLET PO SCH (09:00)
[2018-07-12 12:27] LABS: VBG Ionized Calcium 0.64 mmol/L (1.15-1.35)
[2018-07-12 12:50] LABS: Calcium 4.6 mg/dL (8.6-10.3); Magnesium 0.5 mg/dL (1.6-2.6); Phosphorous 3.2 mg/dL (2.7-4.5)
[2018-07-12 13:13] LABS: Folate 21.6 ng/mL (3.0-16.0)
[2018-07-12] MEDS ORDERED: Potassium Chloride 40 MEQ, Lidocaine 1% 2 ML in D5% in Water 500 ML IVPB ONE (15:43)
[2018-07-12] MEDS ORDERED: Cyanocobalamin (B-12) 1,000 MCG/ML VIAL IM ONE (15:44)
--- NOTE | 2018-07-12 15:58 | Internal Med Progress Note ---
Hospitalist Progress Note - Encounter Date of Encounter: 07/12/18 Time of Encounter: 15:49 - Subjective Interval History: Sitting on chair comfortably and having breakfast. Review of the lab with electrolyte imbalance. Denies fever chills nausea vomiting headache dizziness chest pain short of breath cough urinary complaint. She has 3-4 bowel movement as per her routine after waiting small bowel resection. - Exam Vitals: Temp Pulse Resp BP Pulse Ox 98.6 F 63 17 151/76 95 07/12/18 11:19 07/12/18 11:19 07/12/18 11:19 07/12/18 11:19 07/12/18 11:19 Exam: General appearance: No acute distress, A&O X 3 Eye exam: EOMI, PERRLA ENT exam: Moist oral mucosa Neck nontender, supple Respiratory exam: Clear to auscultation bilaterally Cardiovascular exam: Regular rate and rhythm, no systolic murmur Abdominal exam: Soft, nontender, nondistended, positive bowel sounds Extremities exam: No calf tenderness, no pedal edema Present: Skin-no rash, warm, dry, intact Neurological exam: CN II-XII intact, no focal deficits. No facial droop. Normal speech. Normal gait. - Assessment and Plan (1) Electrolyte imbalance Current Visit: Yes Status: Acute Assessment and Plan: Severe. Most likely secondary complication due to small bowel resection. Patient has chronic diarrhea and prone to lose electrolyte. Replacing calcium, magnesium, potassium. Will also consult client account assistant. She may need parathyroid evaluation because of severe calcium deficiency. Will keep patient in telemetry to monitor cardiac rhythm as severe electrolyte imbalance. Repeat electrolyte in 4-6 hour and replace appropriately (2) Short gut syndrome Current Visit: Yes Status: Acute Assessment and Plan: Status post small bowel resection. High risk for nutritional deficiency. Refractive Surgeon consulted. Low vitamin B12 therefore intramuscular vitamin B12 given today. High folate level (3) A-fib Current Visit: Yes Status: Acute Assessment and Plan: Rate is controlled. Continue home medicine beta lina and Xarelto (4) Elevated troponin Current Visit: Yes Status: Acute Assessment and Plan: Most likely due to demand ischemia. Not trending up troponin. Continue to mon itor. (5) Exertional dyspnea Current Visit: Yes Status: Acute Assessment and Plan: Improving. CTA chest with no PE. No sign of volume overload. Most likely due to severe electrolyte imbalance. Continue to monitor. (6) Anemia Current Visit: Yes Status: Acute Assessment and Plan: Most likely due to nutritional deficiency due to shortcut syndrome. Will check iron panel. She has low vitamin B12. Hemoccult test will be ordered. Replacement. (7) DVT prophylaxis Current Visit: No Status: Acute Assessment and Plan: Continue Xarelto - Time Spent with Patient Total time spent is greater than 50% in coordination of care (as documented) at patient's floor/unit and/or counseling patient: 25 - 35 minutes Plan of Care Discussed with: patient Internal Medicine: Result - Labs CBC & Chem 7: 07/11/18 23:18 07/12/18 11:56 Labs: Short CBC 07/11/18 Range/Units 23:18 WBC 5.7 (4.3-11.1) K/mcL Hgb 10.5 L (11.5-15.4) g/dL Hct 31.8 L (35.3-44.9) % Plt Count 171 (140-400) K/mcL Neutrophils # 3.1 (1.6-8.9) K/mcL BMP 07/11/18 07/12/18 07/12/18 23:18 11:56 11:56 Sodium 138 Potassium 3.2 L 3.4 L Chloride 106 Carbon Dioxide 22 L BUN 12 Creatinine 1.00 Glucose 65 L Calcium 5.0 L* 4.6 L* Cardiac Enzymes 07/12/18 Range/Units 05:04 Troponin I 0.04 H* (< 0.04) ng/mL Urine 07/12/18 Range/Units 03:15 Urine Color Yellow (Yellow) Urine Clarity Clear (Clear) Urine pH 6.0 (5.0-8.0) pH Units Ur Specific Ovalo > 1.030 H (1.010-1.025) Urine Protein Trace (Neg-Trace) mg/dL Urine Glucose (UA) Normal (Normal) mg/dL - ABG Interpretation ABG results: PT/INR, D-dimer D-Dimer 1137 ng/mLFEU (0-500) H 07/11/18 10:45 - Impressions Impressions Chest CTA 07/11/18 17:02 IMPRESSION: No evidence of pulmonary embolism or acute pulmonary abnormality. Tiny hiatus hernia. D/ / Holden Maradiaga / Holden Maradiaga Interpreting Provider: Holden Maradiaga Consult Discharge Plan - Plan Referrals: Holley Alexander DO [Primary Care Provider] - (6) Anemia Qualifiers: Anemia type: unspecified type Qualified Code(s): D64.9 - Anemia, unspecified
[2018-07-12 21:58] LABS: VBG Ionized Calcium 0.74 mmol/L (1.15-1.35)
[2018-07-12 22:14] LABS: BUN/Creatinine Ratio 9 (6-26); Blood Urea Nitrogen 8 mg/dL (8-23); Carbon Dioxide 23 mEq/L (23-29); Chloride 107 mEq/L (98-107); Glucose 91 mg/dL (70-105); Osmolality,Calculated 282 (280-300); Phosphorous 2.8 mg/dL (2.7-4.5); Potassium 4.1 mEq/L (3.5-5.1); Sodium 137 mEq/L (136-145); eGFR For Non-African Americans > 60 (> 60)
[2018-07-12] MEDS ORDERED: Calcium Gluconate 2,000 MG in 0.9 % Sodium Chloride 100 ML IVPB ONE (22:18)
[2018-07-13 05:40] LABS: VBG Ionized Calcium 0.82 mmol/L (1.15-1.35)
[2018-07-13 05:54] LABS: Magnesium 1.4 mg/dL (1.6-2.6); Potassium 3.8 mEq/L (3.5-5.1)
[2018-07-13] MEDS ORDERED: Calcium Gluconate 2,000 MG in 0.9 % Sodium Chloride 100 ML IVPB ONE (07:48)
[2018-07-13] MEDS: *HR* Rivaroxaban 15 MG TABLET PO SCH (08:50)
--- NOTE | 2018-07-13 09:51 | Nephrology Consult Note ---
Addendum entered and electronically signed by Kevin Rodriguez MD 07/13/18 22:16: I examined this patient and my medical decision-making was reviewed with the Resident Physician. I agree with the documented findings, disposition and treatment plan as described except to the extent set forth below. Continue electrolyte replacement. Original Note: Date of Encounter: 07/13/18 Time of Encounter: 09:49 Assessment and Plan (1) Hypocalcemia Current Visit: No Status: Acute - Laboratory analysis on arrival demonstrated a low calcium level at 4.8 - Previous calcium level on 06/05/18 was 7.1 - Unknown etiology at this time; possibly secondary to GI loss - Patient is status post small bowel resection; experiences 3-5 loose bowel movements per day - Patient is not on any type of supplementation - Sodium and potassium are within normal limits - 25-OH vitamin D total: <5 - Venous ionized calcium: 0.82 - Magnesium: 1.4 Plan: - Monitor and replace electrolytes as needed - Nutrition has been consulted - Continuous telemetry - Parathyroid workup pending - We will order urinalysis with reflex urine culture - We will order magnesium supplement to keep magnesium above 2.0 - We will start the patient on vitamin B12 IM for 4 days (2) Exertional dyspnea Current Visit: Yes Status: Acute - Presented with exertional dyspnea - Unknown etiology at this time - Presented with tachypnea at 32/m - Patient was subsequently placed on supplemental O2 via nasal cannula - Vital signs are currently stable; patient satting at 100% - Continue to monitor patients vital signs and clinical status (3) A-fib Current Visit: Yes Status: Acute - Patient has a known history of atrial fibrillation on Xarelto - EKG on arrival demonstrated possible atrial flutter - Patient is currently rate controlled - Continuous telemetry Qualifiers: Qualified Code(s): I48.91 - Unspecified atrial fibrillation (4) DVT prophylaxis Current Visit: No Status: Acute - Continue Xarelto History of Present Illness - History of Present Illness Angie Ernandez is an 83-year-old female with a PMH of atrial fibrillation, COPD, HLD, HTN, renal disease, osteoporosis, and thyroid disease who presented to [facility] ED on 07/11/18 with the chief complaint of exertional dyspnea. Patient reported becoming short of breath while walking short distances. On arrival, was found to have a low calcium level of 4.8. Denied symptoms such as numbness, tingling, muscle cramps, cough, chest pain. Denied having any other symptoms. Patient does have a history of a small bowel resection, and states that it is normal for her to have 3-5 loose bowel movements per day. This has been going on since her surgery. Upon arrival to the ER, patient was found to have an elevated pulse at 98 bpm and an elevated respiratory rate at 34/m. Laboratory analysis in addition to hypocalcemia demonstrated an elevated lactic acid at 2.8, d-dimer 1137, and hemoglobin of 11.2. Repeat lactate was 1.4. Troponin was elevated at 0.04. EKG demonstrated possible atrial flutter. Chest x-ray demonstrated a persistently enlarged cardiomediastinal silhouette without acute process. CTA was negative for PE. Patient was admitted to the hospitalist service. Venous ionized calcium: 0.82. Magnesium: 1.4. Vitamin B12 235. Folate 21.6. Since arrival, patients vital signs of improvement. Patient is no longer tachypneic; respiratory rate is 16. Currently on 2 L of O2 via nasal cannula, satting at 100%. Patient seen and examined at bedside; no complaints today. States that all of her presenting symptoms have resolved. Past Med Surg Social Fam HX - Past Medical History Medical history: non-contributory, arthritis, atrial fibrillation, COPD, hyperlipidemia, hypertension, osteoporosis, renal disease, thyroid disease, other Additional medical history: ulcer Psychiatric history: no psych history - Past Surgical History Surgical History: orthopedic, other, other (Bowel surgery) Additional surgical history: bowel resection - Social History Smoking Status: Former smoker Smokeless Tobacco Status: No Alcohol use: none Drug use: none - Family History Father Adopted: No Family Member Ethnicity: Non- Living Status: Hx Family Cardiac Disorders: No Hx Family Respiratory Disorders: Yes (emphysema) Hx Family Cancer: No Hx Family GI Disorders: No Hx Family Endocrine Disorder: No Hx Family Neuromuscular Disorders: No Hx Family Neurologic Disorders: No Hx Family HEENT Disorders: No Hx Family Autoimmune Disorders: No Mother Adopted: No Living Status: Hx Family Cardiac Disorders: Yes Medications and Allergies Omeprazole [PriLOSEC] 40 mg PO DAILY #30 capsule. 04/11/15 [Rx] Rivaroxaban [Xarelto] 20 mg PO DAILY #30 tablet 09/04/15 [Rx] Atorvastatin Calcium [Lipitor] 20 mg PO HS 07/12/16 [History] Losartan Potassium [Cozaar] 50 mg PO DAILY 06/16/17 [History] Levothyroxine Sodium 125 mcg PO DAILY 06/02/18 [History] Metoprolol Tartrate 50 mg PO BID 06/02/18 [History] Allergy/AdvReac Type Severity Reaction Status Date / Time hydrochlorothiazide Allergy Rash Verified 06/16/17 10:47 Review of Systems Constitutional: as per HPI, no chills, no fatigue, no fever(s) Cardiovascular: as per HPI, irregular heart rhythm, no chest pain, no chest pain at rest, no claudication, no diaphoresis, no dyspnea, no dyspnea on exertion Respiratory: as per HPI Gastrointestinal: as per HPI, diarrhea, no abdominal pain, no melena, no nausea Genitourinary Female: as per HPI, no urinary frequency, no urinary hesitancy, no urinary urgency Neurological: as per HPI, no numbness, no tingling Exam - Vital Signs Vital signs: Initial Vital Signs Temp Pulse Resp BP Pulse Ox 98.0 F 98 34 138/80 100 07/11/18 10:27 07/11/18 10:27 07/11/18 10:27 07/11/18 10:27 07/11/18 10:27 Vital Signs - Last 8 Hours Temp Pulse Resp BP Pulse Ox 07/13/18 08:36 100 07/13/18 07:53 97.8 F 60 16 161/75 100 07/13/18 04:00 97.7 F 55 17 147/77 94 Intake and Output 07/12/18 07/13/18 07/13/18 23:59 07:59 15:59 Intake Total 856 / 856 104 / 104 360 / 360 Output Total 250 / 250 1400 / 1400 Balance 606 / 606 -1296 / -1296 360 / 360 Intake: IV Fluids 856 / 856 104 / 104 Calcium Gluconate 2,000 MG In 0 230 / 230 .9 % Sodium Chloride 100 ML @ 220 mls/hr IVPB ONCE ONE Rx#: [id number] Magnesium Sulfate 2 GM In 0.9 % 104 / 104 104 / 104 Sodium Chloride 100 ML @ 25 mls/hr IVPB Q4H [facility] Rx#: [id number] KCl 40 MEQ Xylocaine 2 ML In 522 / 522 Dextrose 5% 500 ML @ 130.5 mls/ hr IVPB ONCE ONE Rx#:[id number] Oral 0 / 0 0 / 0 360 / 360 Output: Urine 250 / 250 1400 / 1400 Other: Meal Breakfast Percent of Meal Consumed 75% Weight 72.7 kg Patient Weight 07/13/18 23:59 Weight 72.7 kg - General Appearance Exam: General: Alert and oriented 3, no acute distress, O2 via NC Head: atraumatic, normocephalic Neck: Supple, trachea midline; No lymphadenopathy Respiratory: Clear to auscultation bilaterally, no wheezes, rales, rhonchi Cardiovascular: RRR, +S1, +S2; no murmurs, rubs, gallops Abdomen: Soft, nontender Extremities: No clubbing, edema, or cyanosis Neurological: No focal deficits noted Psychiatric: Normal affect, normal mood Skin: Dry, intact Results - Lab Results 07/11/18 23:18 07/13/18 05:15 Most recent lab results Calcium 5.0 mg/dL (8.6-10.3) L* 07/12/18 21:34 Phosphorus 2.8 mg/dL (2.7-4.5) 07/12/18 21:34 Magnesium 1.4 mg/dL (1.6-2.6) L 07/13/18 05:15 Consult Discharge Plan - Plan Referrals: Holley Alexander DO [Primary Care Provider] -
--- NOTE | 2018-07-13 11:35 | Internal Med Progress Note ---
Hospitalist Progress Note - Encounter Date of Encounter: 07/13/18 Time of Encounter: 11:33 - Subjective Interval History: Lying comfortably on bed and watching TV with no acute distress. She had 3-4 bowel movement yesterday and that is her routine. Review of the lab with electrolyte imbalance. Denies fever chills nausea vomiting headache dizziness chest pain short of breath cough urinary complaint. - Exam Vitals: Temp Pulse Resp BP Pulse Ox 97.8 F 60 16 161/75 100 07/13/18 07:53 07/13/18 07:53 07/13/18 07:53 07/13/18 07:53 07/13/18 08:36 Exam: General appearance: No acute distress, A&O X 3 Eye exam: EOMI, PERRLA ENT exam: Moist oral mucosa Neck nontender, supple Respiratory exam: Clear to auscultation bilaterally Cardiovascular exam: Regular rate and rhythm, no systolic murmur Abdominal exam: Soft, nontender, nondistended, positive bowel sounds Extremities exam: No calf tenderness, no pedal edema Present: Skin-no rash, warm, dry, intact Neurological exam: CN II-XII intact, no focal deficits. No facial droop. Normal speech. Normal gait. - Assessment and Plan (1) Hypocalcemia Current Visit: No Status: Acute Assessment and Plan: Significant low. Unknown etiology but possibly secondary to GI loss is status post a small bowel resection. Replacement and close monitoring. Low vitamin D level therefore replaced 1 dose 50,000 unit inpatient. Consulted payroll administrator for further workup. (2) Short gut syndrome Current Visit: Yes Status: Acute Assessment and Plan: Status post small bowel resection. High risk for nutritional deficiency. Regulatory Services Consultant consulted. Low vitamin B12 therefore intramuscular vitamin B12 given in the hospital with the concern of malabsorption orally. High folate leve. Patient needs to get monitor by her PCP on OPD basis l (3) Exertional dyspnea Current Visit: Yes Status: Acute Assessment and Plan: Improving. CTA chest with no PE. No sign of volume overload. Most likely due to severe electrolyte imbalance. Continue to monitor. (4) A-fib Current Visit: Yes Status: Acute Assessment and Plan: Rate is controlled. Continue home medicine beta lina and Xarelto (5) Anemia Current Visit: Yes Status: Acute Assessment and Plan: Most likely due to nutritional deficiency due to shortcut syndrome. Reviewed iron panel with low iron level therefore iron supplement will be started. She has low vitamin B12. Hemoccult test ordered. Replacement. (6) Electrolyte imbalance Current Visit: Yes Status: Acute Assessment and Plan: Severe. Most likely secondary complication due to small bowel resection. Patient has chronic diarrhea and prone to lose electrolyte. Replacing calcium, magnesium, potassium. Tank Truck Mechanic on board . Will keep patient in telemetry to monitor cardiac rhythm as severe electrolyte imbalance. Repeat electrolyte in 6 hour and replace appropriately (7) Elevated troponin Current Visit: Yes Status: Acute (8) DVT prophylaxis Current Visit: No Status: Acute Assessment and Plan: Continue Xarelto - Time Spent with Patient Total time spent is greater than 50% in coordination of care (as documented) at patient's floor/unit and/or counseling patient: 25 - 35 minutes Plan of Care Discussed with: patient Internal Medicine: Result - Labs CBC & Chem 7: 07/11/18 23:18 07/13/18 05:15 Labs: BMP 07/12/18 07/12/18 07/12/18 11:56 11:56 21:34 Sodium 137 Potassium 3.4 L 4.1 Chloride 107 Carbon Dioxide 23 BUN 8 Creatinine 0.86 Glucose 91 Calcium 4.6 L* 5.0 L* 07/13/18 05:15 Sodium Potassium 3.8 Chloride Carbon Dioxide BUN Creatinine Glucose Calcium - ABG Interpretation ABG results: PT/INR, D-dimer D-Dimer 1137 ng/mLFEU (0-500) H 07/11/18 10:45 Consult Discharge Plan - Plan Referrals: Holley Alexander DO [Primary Care Provider] - (5) Anemia Qualifiers: Anemia type: unspecified type Qualified Code(s): D64.9 - Anemia, unspecified
[2018-07-13] MEDS ORDERED: Cyanocobalamin (B-12) 1,000 MCG/ML VIAL IM ONE (13:20)
[2018-07-13 14:22] LABS: VBG Ionized Calcium 0.89 mmol/L (1.15-1.35)
[2018-07-13] MEDS: Calcium Gluconate 2,000 MG in 0.9 % Sodium Chloride 100 ML IVPB SCH ×2 (17:44→18:46)
[2018-07-14 03:54] LABS: VBG Ionized Calcium 1.05 mmol/L (1.15-1.35)
[2018-07-14 04:07] LABS: Basophils % 0.5 %; Eosinophils # 0.2 K/mcL (0.0-0.6); Eosinophils % 4.3 %; Hematocrit 31.4 % (35.3-44.9); Immature Granulocytes % 0.5 % (0-4); Lymphocytes # 1.8 K/mcL (0.6-4.6); Lymphocytes % 33.2 %; Mean Corpuscular HGB Conc 31.8 g/dL (31.6-35.5); Mean Corpuscular Hemoglobin 29.8 pg (28.0-33.3); Mean Corpuscular Volume 93.5 fL (83.0-100.0); Mean Platelet Volume 12.6 fL (9.4-12.4); Monocytes # 0.5 K/mcL (0.0-1.3); Monocytes % 8.9 %; Neutrophils # 2.9 K/mcL (1.6-8.9); Platelet Count 177 K/mcL (140-400); Red Blood Count 3.36 M/mcL (3.82-4.97); Red Cell Distribution Width 15.9 % (11.5-14.5); Segmented Neutrophils % 52.6 %
[2018-07-14 04:20] LABS: BUN/Creatinine Ratio 16 (6-26); Blood Urea Nitrogen 13 mg/dL (8-23); Calcium 6.9 mg/dL (8.6-10.3); Carbon Dioxide 22 mEq/L (23-29); Chloride 108 mEq/L (98-107); Glucose 93 mg/dL (70-105); Magnesium 1.9 mg/dL (1.6-2.6); Osmolality,Calculated 284 (280-300); Potassium 4.3 mEq/L (3.5-5.1); Sodium 137 mEq/L (136-145); eGFR For Non-African Americans > 60 (> 60)
[2018-07-14] MEDS: Nystatin POWDER 30 GM BOTTLE TP SCH ×4 (06:11→20:42)
[2018-07-14] MEDS: *HR* Rivaroxaban 15 MG TABLET PO SCH (07:54)
--- NOTE | 2018-07-14 09:47 | Nephrology Progress Note ---
Addendum entered and electronically signed by Kevin Rodriguez MD 07/14/18 19:08: I examined this patient and my medical decision-making was reviewed with the Resident Physician. I agree with the documented findings, disposition and treatment plan as described except to the extent set forth below. Will sign off. call with concerns. Original Note: Date of Encounter: 07/14/18 Time of Encounter: 14:01 - Assessment and Plan (1) Hypocalcemia Current Visit: No Status: Acute - Laboratory analysis on arrival demonstrated a low calcium level at 4.8 - Previous calcium level on 06/05/18 was 7.1 - Unknown etiology at this time; possibly secondary to GI loss - Patient is status post small bowel resection; experiences 3-5 loose bowel movements per day - Patient is not on any type of supplementation - Sodium and potassium are within normal limits - 25-OH vitamin D total: <5 - Venous ionized calcium: 0.82 - IM vitamin B12 has been started - PTH noted to be elevated at 233.2 Plan: - Monitor and replace electrolytes as needed - Nutrition has been consulted - Continuous telemetry - Vitamin B12 IM for 4 days (2) Exertional dyspnea Current Visit: Yes Status: Acute - Presented with exertional dyspnea - Unknown etiology at this time - Presented with tachypnea at 32/m - Patient was subsequently placed on supplemental O2 via nasal cannula - Vital signs are currently stable; patient satting at 100% - Continue to monitor patients vital signs and clinical status (3) A-fib Current Visit: Yes Status: Acute - Patient has a known history of atrial fibrillation on Xarelto - EKG on arrival demonstrated possible atrial flutter - Patient is currently rate controlled - Continuous telemetry Qualifiers: Qualified Code(s): I48.91 - Unspecified atrial fibrillation (4) DVT prophylaxis Current Visit: No Status: Acute - Continue Xarelto Subjective Interval history: Patient seen and examined at bedside; states that she feels well. Denies numbness, tingling, fever, chills, nausea, vomiting, or shortness of breath. No complaints at this time. Objective - Vital Signs Vital signs: Vital Signs Temp Pulse Resp BP Pulse Ox 07/14/18 08:01 98.3 F 63 18 175/73 98 07/14/18 05:30 97.4 F L 58 16 145/74 94 07/13/18 20:11 97.9 F 62 18 166/72 97 07/13/18 15:31 60 16 135/80 96 Intake and Output 07/13/18 07/14/18 07/14/18 23:59 07:59 15:59 Intake Total 120 / 120 Output Total 700 / 700 600 / 600 Balance -580 / -580 -600 / -600 Intake: IV Fluids 120 / 120 Calcium Gluconate 2,000 MG In 0 120 / 120 .9 % Sodium Chloride 100 ML @ 220 mls/hr IVPB Q4H [facility] Rx#: [id number] Oral 0 / 0 Output: Urine 700 / 700 600 / 600 Other: Stool Size Small Stool Consistency soft formed Stool Color Brown # Voids 1 Weight 73 kg Patient Weight 07/14/18 23:59 Weight 73 kg - General Appearance Exam: General: Alert and oriented 3, no acute distress, O2 via NC Head: atraumatic, normocephalic Neck: Supple, trachea midline; No lymphadenopathy Respiratory: Clear to auscultation bilaterally, no wheezes, rales, rhonchi Cardiovascular: RRR, +S1, +S2; no murmurs, rubs, gallops Abdomen: Soft, nontender Extremities: No clubbing, edema, or cyanosis Neurological: No focal deficits noted Psychiatric: Normal affect, normal mood Skin: Dry, intact - Lab 07/14/18 03:36 07/14/18 03:36 Most recent lab results Calcium 6.9 mg/dL (8.6-10.3) L 07/14/18 03:36 Phosphorus 2.8 mg/dL (2.7-4.5) 07/12/18 21:34 Magnesium 1.9 mg/dL (1.6-2.6) 07/14/18 03:36 Consult Discharge Plan - Plan Referrals: Holley Alexander DO [Primary Care Provider] -
[2018-07-14] MEDS ORDERED: Calcium Gluconate 2,000 MG in 0.9 % Sodium Chloride 100 ML IVPB ONE (15:20)
--- NOTE | 2018-07-14 15:32 | Internal Med Progress Note ---
Hospitalist Progress Note - Encounter Date of Encounter: 07/14/18 Time of Encounter: 15:28 - Subjective Interval History: Pt denies chest pain or SOB. She denies fever chills, N/V. Positive diarrhea. - Exam Vitals: Temp Pulse Resp BP Pulse Ox 98.2 F 51 17 132/63 99 07/14/18 11:54 07/14/18 11:54 07/14/18 11:54 07/14/18 11:54 07/14/18 11:54 Exam: Exam: General appearance: No acute distress, A&O X 3 Eye exam: EOMI, PERRLA ENT exam: Moist oral mucosa Neck nontender, supple Respiratory exam: Clear to auscultation bilaterally Cardiovascular exam: Regular rate and rhythm, no systolic murmur Abdominal exam: Soft, nontender, nondistended, positive bowel sounds Extremities exam: No calf tenderness, no pedal edema Present: Skin-no rash, warm, dry, intact Neurological exam: CN II-XII intact, no focal deficits. No facial droop. Normal speech. Normal gait. - Assessment and Plan (1) Hypocalcemia Current Visit: No Status: Acute Assessment and Plan: Possibly secondary to GI loss as pt is status post a small bowel resection. Significantly low on admission at 5.0. Ionized Ca 2+ 0.67. Will continue with replacement and close monitoring. Pt appears to be low on fat soluble vitamins. Low vitamin D level replaced 1 dose 50,000 unit inpatient and will continue out pt once a week. Public Records Researcher consulted to see for further workup. PTH noted to be elevated 233.2. Will likely benefit from GI referral out pt as well. ? malabsorption. Pt having frequent loose stools. C.diff neg. Will give imodium for now. Possible DC over the weekend once Ca improves to acceptable level. (2) Exertional dyspnea Current Visit: Yes Status: Acute Assessment and Plan: Improving. D dimer Elevated. CTA chest with no PE. No sign of volume overload. Most likely due to severe electrolyte imbalance. Pt reports feeling better already. (3) A-fib Current Visit: Yes Status: Acute Assessment and Plan: Rate is controlled. Continue home medicine beta lina and Xarelto dose adjusted based on CrCl and age. Pt is on Xarelto 20 mg QD but decreased to Xarelto 15 mg QD on this admission. (4) Vitamin B 12 deficiency Current Visit: Yes Status: Acute Assessment and Plan: IM Vitamin B 12 ordered. Follow up out pt with PCP for further management. Pt will likely benefit form GI evaluation out pt. DVT Prophylaxis: Continue Xarelto. - Summary of Assessment and Plan Summary of Assessment and Plan: History of present illness: Dr. Chavez/Lucian, Resident Ms. Ernandez is a 83 year old female with PMHx of A. fib, COPD, HLD, HTN, renal disease, osteoporosis, thyroid disease, and small bowel resection admitted from the ED for evaluation of exertional dyspnea and hypocalcemic. Patient states she woke up this AM with exertional dyspnea, uses a walker and states that she becomes dyspneic with short distances. Denies other symptoms such as numbness, tingling, muscle cramping, cough, congestion or chest pain. Patient states it is normal for her to have 3-5 episodes of diarrhea daily mostly in the morning. This has been occurring since her prior bowel surgery. Denies hematochezia or melena or abdominal pain. - Time Spent with Patient Total time spent is greater than 50% in coordination of care (as documented) at patient's floor/unit and/or counseling patient: less than 15 minutes Plan of Care Discussed with: patient Internal Medicine: Result - Labs CBC & Chem 7: 07/14/18 03:36 07/14/18 03:36 Labs: Short CBC 07/14/18 Range/Units 03:36 WBC 5.5 (4.3-11.1) K/mcL Hgb 10.0 L (11.5-15.4) g/dL Hct 31.4 L (35.3-44.9) % Plt Count 177 (140-400) K/mcL Neutrophils # 2.9 (1.6-8.9) K/mcL BMP 07/14/18 03:36 Sodium 137 Potassium 4.3 Chloride 108 H Carbon Dioxide 22 L BUN 13 Creatinine 0.81 Glucose 93 Calcium 6.9 L - ABG Interpretation ABG results: PT/INR, D-dimer D-Dimer 1137 ng/mLFEU (0-500) H 07/11/18 10:45 Consult Discharge Plan - Plan Referrals: Holley Alexander DO [Primary Care Provider] - (3) A-fib Qualifiers: Qualified Code(s): I48.91 - Unspecified atrial fibrillation
[2018-07-14] MEDS: Cyanocobalamin (B-12) 1,000 MCG/ML VIAL IM SCH (16:19)
[2018-07-14] MEDS: Magnesium Oxide 400 MG TABLET PO SCH (16:19)
[2018-07-14 17:00] LABS: INR 1.9; Prothrombin Time 21.3 Seconds (9.4-12.1)
[2018-07-15 04:03] LABS: Basophils % 0.6 %; Eosinophils # 0.2 K/mcL (0.0-0.6); Eosinophils % 4.4 %; Hematocrit 30.4 % (35.3-44.9); Hemoglobin 9.7 g/dL (11.5-15.4); Immature Granulocytes % 0.4 % (0-4); Lymphocytes # 1.9 K/mcL (0.6-4.6); Lymphocytes % 39.2 %; Mean Corpuscular HGB Conc 31.9 g/dL (31.6-35.5); Mean Corpuscular Hemoglobin 29.9 pg (28.0-33.3); Mean Corpuscular Volume 93.8 fL (83.0-100.0); Mean Platelet Volume 12.7 fL (9.4-12.4); Monocytes # 0.5 K/mcL (0.0-1.3); Monocytes % 9.7 %; Neutrophils # 2.2 K/mcL (1.6-8.9); Platelet Count 162 K/mcL (140-400); Red Blood Count 3.24 M/mcL (3.82-4.97); Red Cell Distribution Width 15.9 % (11.5-14.5); Segmented Neutrophils % 45.7 %
[2018-07-15 04:23] LABS: Alanine Aminotransferase 4 Units/L (7-52); Albumin 2.5 g/dL (3.5-5.7); Albumin/Globulin Ratio 1.2 (1.1-2.2); Alkaline Phosphatase 105 Units/L (34-104); Aspartate Amino Transferase 10 Units/L (13-39); BUN/Creatinine Ratio 22 (6-26); Bilirubin,Total 0.5 mg/dL (0.3-1.0); Blood Urea Nitrogen 17 mg/dL (8-23); Calcium 7.5 mg/dL (8.6-10.3); Carbon Dioxide 23 mEq/L (23-29); Chloride 110 mEq/L (98-107); Globulin 2.1 g/dL (2.4-3.5); Glucose 82 mg/dL (70-105); Osmolality,Calculated 285 (280-300); Potassium 4.6 mEq/L (3.5-5.1); Sodium 137 mEq/L (136-145); Total Protein 4.6 g/dL (6.4-8.9); eGFR For Non-African Americans > 60 (> 60)
[2018-07-15] MEDS ORDERED: Calcium Gluconate 2,000 MG in 0.9 % Sodium Chloride 100 ML IVPB ONE (07:58)
[2018-07-15] MEDS: *HR* Rivaroxaban 15 MG TABLET PO SCH (10:01)
[2018-07-15] MEDS: Magnesium Oxide 400 MG TABLET PO SCH (10:01)
[2018-07-15] MEDS: Cyanocobalamin (B-12) 1,000 MCG/ML VIAL IM SCH (10:02)
[2018-07-15] MEDS: Nystatin POWDER 30 GM BOTTLE TP SCH ×3 (10:03→23:15)
--- NOTE | 2018-07-15 10:10 | Internal Med Progress Note ---
Hospitalist Progress Note - Encounter Date of Encounter: 07/15/18 Time of Encounter: 10:07 - Subjective Interval History: Ms. Ernandez is a 83 year old female with PMHx of A. fib, COPD, HLD, HTN, renal disease, osteoporosis, thyroid disease, and small bowel resection admitted from the ED for evaluation of exertional dyspnea and hypocalcemic. Patient states she woke up this AM with exertional dyspnea, uses a walker and states that she becomes dyspneic with short distances. Denies other symptoms such as numbness, tingling, muscle cramping, cough, congestion or chest pain. Patient states it is normal for her to have 3-5 episodes of diarrhea daily mostly in the morning. This has been occurring since her prior bowel surgery. Denies hematochezia or melena or abdominal pain. patient waas admitted for symptomatic hypocalemia, symptoms are improved, after IV moral repalcement, Free calcium is still low, will give IV replacement tooday possible discharge tomorrow - Exam Vitals: Temp Pulse Resp BP Pulse Ox 97.7 F 51 18 145/68 100 07/15/18 07:07 07/15/18 07:07 07/15/18 07:07 07/15/18 07:07 07/15/18 07:07 Exam: Exam: General appearance: No acute distress, A&O X 3 Eye exam: EOMI, PERRLA ENT exam: Moist oral mucosa Neck nontender, supple Respiratory exam: Clear to auscultation bilaterally Cardiovascular exam: Regular rate and rhythm, no systolic murmur Abdominal exam: Soft, nontender, nondistended, positive bowel sounds Extremities exam: No calf tenderness, no pedal edema Present: Skin-no rash, warm, dry, intact Neurological exam: CN II-XII intact, no focal deficits. No facial droop. Normal speech. Normal gait. - Assessment and Plan (1) Hypocalcemia Current Visit: Yes Status: Acute Assessment and Plan: Possibly secondary to GI loss as pt is status post a small bowel resection. Significantly low on admission at 5.0. Ionized Ca was 0.67. Will continue with replacement and close monitoring. Pt appears to be low on fat soluble vitamins. Low vitamin D level replaced 1 dose 50,000 unit inpatient and will continue out pt once a week. Blood And Plasma Laboratory Assistant consulted to see for further workup. PTH noted to be elevated 233.2 likley due to low D3. continue calcium and vitamin D replcement diarrhea improved (2) Exertional dyspnea Current Visit: Yes Status: Acute Assessment and Plan: Improving. D dimer Elevated. CTA chest with no PE. No sign of volume overload. Most likely due to severe electrolyte imbalance. resolved (3) A-fib Current Visit: Yes Status: Acute Assessment and Plan: Rate is controlled. Continue home medicine beta lina and Xarelto dose adjusted based on CrCl and age. Pt is on Xarelto 20 mg QD but decreased to Xarelto 15 mg QD on this admission (4) Vitamin B 12 deficiency Current Visit: Yes Status: Acute Assessment and Plan: continue replacement DVT Prophylaxis: Continue Xarelto. - Summary of Assessment and Plan Summary of Assessment and Plan: History of present illness: Dr. Chavez/Lucian, Resident Ms. Ernandez is a 83 year old female with PMHx of A. fib, COPD, HLD, HTN, renal disease, osteoporosis, thyroid disease, and small bowel resection admitted from the ED for evaluation of exertional dyspnea and hypocalcemic. Patient states she woke up this AM with exertional dyspnea, uses a walker and states that she becomes dyspneic with short distances. Denies other symptoms such as numbness, tingling, muscle cramping, cough, congestion or chest pain. Patient states it is normal for her to have 3-5 episodes of diarrhea daily mostly in the morning. This has been occurring since her prior bowel surgery. Denies hematochezia or melena or abdominal pain. discharge to SNF tomorrow if Calcium improves - Time Spent with Patient Total time spent is greater than 50% in coordination of care (as documented) at patient's floor/unit and/or counseling patient: 25 - 35 minutes Plan of Care Discussed with: patient Internal Medicine: Result - Labs CBC & Chem 7: 07/15/18 03:31 07/15/18 03:31 Labs: Short CBC 07/15/18 Range/Units 03:31 WBC 4.8 (4.3-11.1) K/mcL Hgb 9.7 L (11.5-15.4) g/dL Hct 30.4 L (35.3-44.9) % Plt Count 162 (140-400) K/mcL Neutrophils # 2.2 (1.6-8.9) K/mcL BMP 07/15/18 03:31 Sodium 137 Potassium 4.6 Chloride 110 H Carbon Dioxide 23 BUN 17 Creatinine 0.79 Glucose 82 Calcium 7.5 L Liver Function 07/15/18 Range/Units 03:31 Total Bilirubin 0.5 (0.3-1.0) mg/dL AST 10 L (13-39) Units/L ALT 4 L (7-52) Units/L Alkaline Phosphatase 105 H (34-104) Units/L Albumin 2.5 L (3.5-5.7) g/dL - ABG Interpretation ABG results: PT/INR, D-dimer PT 21.3 Seconds (9.4-12.1) H 07/14/18 15:51 D-Dimer 1137 ng/mLFEU (0-500) H 07/11/18 10:45 Consult Discharge Plan - Plan Referrals: Holley Alexander DO [Primary Care Provider] - (3) A-fib Qualifiers: Atrial fibrillation type: chronic Qualified Code(s): I48.2 - Chronic atrial fibrillation
[2018-07-16 03:31] LABS: VBG Ionized Calcium 1.19 mmol/L (1.15-1.35)
[2018-07-16 03:33] LABS: Basophils % 0.6 %; Eosinophils # 0.2 K/mcL (0.0-0.6); Eosinophils % 4.2 %; Hematocrit 31.3 % (35.3-44.9); Immature Granulocytes % 0.2 % (0-4); Lymphocytes # 1.6 K/mcL (0.6-4.6); Lymphocytes % 34.1 %; Mean Corpuscular HGB Conc 31.9 g/dL (31.6-35.5); Mean Corpuscular Hemoglobin 29.8 pg (28.0-33.3); Mean Corpuscular Volume 93.2 fL (83.0-100.0); Mean Platelet Volume 12.7 fL (9.4-12.4); Monocytes # 0.6 K/mcL (0.0-1.3); Monocytes % 11.7 %; Neutrophils # 2.4 K/mcL (1.6-8.9); Platelet Count 178 K/mcL (140-400); Red Blood Count 3.36 M/mcL (3.82-4.97); Red Cell Distribution Width 15.8 % (11.5-14.5); Segmented Neutrophils % 49.2 %
[2018-07-16 03:50] LABS: Alanine Aminotransferase 4 Units/L (7-52); Albumin 2.5 g/dL (3.5-5.7); Albumin/Globulin Ratio 1.3 (1.1-2.2); Alkaline Phosphatase 102 Units/L (34-104); Aspartate Amino Transferase 11 Units/L (13-39); BUN/Creatinine Ratio 20 (6-26); Bilirubin,Total 0.4 mg/dL (0.3-1.0); Blood Urea Nitrogen 17 mg/dL (8-23); Calcium 7.8 mg/dL (8.6-10.3); Carbon Dioxide 24 mEq/L (23-29); Chloride 107 mEq/L (98-107); Glucose 79 mg/dL (70-105); Osmolality,Calculated 280 (280-300); Potassium 4.6 mEq/L (3.5-5.1); Sodium 135 mEq/L (136-145); Total Protein 4.5 g/dL (6.4-8.9); eGFR For Non-African Americans > 60 (> 60)
[2018-07-16 06:59] VITALS: BP 153/68
[2018-07-16] MEDS: Cyanocobalamin (B-12) 1,000 MCG/ML VIAL IM SCH (08:24)
[2018-07-16] MEDS: Magnesium Oxide 400 MG TABLET PO SCH (08:30)
[2018-07-16] MEDS: *HR* Rivaroxaban 15 MG TABLET PO SCH (08:30)
[2018-07-16] MEDS: Nystatin POWDER 30 GM BOTTLE TP SCH (08:31)
--- NOTE | 2018-07-16 10:11 | Discharge Summary ---
Orders not resulted at time of discharge: Pending orders 07/12/18 16:07 Stool guiac [Occult Blood,Stool] [BF] Routine 07/16/18 04:00 Ionized Calcium,venous blood AM 0400 07/17/18 04:00 CBC [Complete Blood Count] [HEME] AM 0400 CMP [Comprehensive Metabolic Panel] AM 0400 Date of Encounter: 07/16/18 Time of Encounter: 10:03 - Discharge Diagnosis (1) Hypocalcemia Priority: Primary Status: Acute (2) Exertional dyspnea Priority: Secondary Status: Resolved (3) A-fib Priority: Secondary Status: Chronic Qualifiers: Atrial fibrillation type: chronic Qualified Code(s): I48.2 - Chronic atrial fibrillation (4) Vitamin B 12 deficiency Priority: Secondary Status: Acute Hospital course: Ms. Ernandez is a 83 year old female with PMHx of A. fib, COPD, HLD, HTN, renal disease, osteoporosis, thyroid disease, and small bowel resection admitted from the ED for evaluation of exertional dyspnea and hypocalcemic. Patient states she woke up this AM with exertional dyspnea, uses a walker and states that she becomes dyspneic with short distances. Denies other symptoms such as numbness, tingling, muscle cramping, cough, congestion or chest pain. Patient states it is normal for her to have 3-5 episodes of diarrhea daily mostly in the morning. This has been occurring since her prior bowel surgery. Denies hematochezia or melena or abdominal pain. (1) Hypocalcemia Current Visit: Yes Status: Acute Assessment and Plan: Possibly secondary to GI loss as pt is status post a small bowel resection. Significantly low on admission at 5.0. Ionized Ca was 0.67. Will continue with replacement and close monitoring. Pt appears to be low on fat soluble vitamins. Low vitamin D level replaced 1 dose 50,000 unit inpatient and will continue out pt once a week. Record Systems Analyst consulted to see for further workup. PTH noted to be elevated 233.2 likley due to low D3. continue calcium and vitamin D replcement, I-lynn is normal and patient is asymptomatic diarrhea improved discharge to SNF on calcium, Vitamin D, and mag repalcement, follow up with PCP (2) Exertional dyspnea Current Visit: Yes Status: Acute Assessment and Plan: Improving. D dimer Elevated. CTA chest with no PE. No sign of volume overload. Most likely due to severe electrolyte imbalance. resolved (3) A-fib Current Visit: Yes Status: Acute Assessment and Plan: Rate is controlled. Continue home medicine beta lina and Xarelto dose adjusted based on CrCl and age. Pt is on Xarelto 20 mg QD but decreased to Xarelto 15 mg QD on this admission (4) Vitamin B 12 deficiency Current Visit: Yes Status: Acute Assessment and Plan: continue replacement DVT Prophylaxis: Continue Xarelto. Time spent discussing smoking cessation with patient: 3 to 10 minutes - Time Spent with Patient Total time spent providing and/or coordinating discharge services: Greater than 30 minutes - Discharge Medications Prescriptions: Calcium Carbonate [Tums] 1,000 mg PO BID #60 tab.chew Cyanocobalamin (B-12) [Vitamin B12] 1,000 mcg PO DAILY #60 tablet Ergocalciferol (VITAMIN D2) [Drisdol (50,000 Unit)] 50,000 unit PO QWEEK #10 capsule Rivaroxaban [Xarelto] 15 mg PO DAILY #90 tablet Home Medications: Omeprazole [PriLOSEC] 40 mg PO DAILY #30 capsule.dr 04/11/15 [Rx] Atorvastatin Calcium [Lipitor] 20 mg PO HS 07/12/16 [History] Losartan Potassium [Cozaar] 50 mg PO DAILY 06/16/17 [History] Levothyroxine Sodium 125 mcg PO DAILY 06/02/18 [History] Metoprolol Tartrate 50 mg PO BID 06/02/18 [History] Calcium Carbonate [Tums] 1,000 mg PO BID #60 tab.chew 07/16/18 [Rx] Cyanocobalamin (B-12) [Vitamin B12] 1,000 mcg PO DAILY #60 tablet 07/16/18 [Rx] Ergocalciferol (VITAMIN D2) [Drisdol (50,000 Unit)] 50,000 unit PO QWEEK #10 capsule 07/16/18 [Rx] Magnesium Oxide [Mag-Ox] 400 mg PO DAILY tablet 07/16/18 [Rx] Rivaroxaban [Xarelto] 15 mg PO DAILY #90 tablet 07/16/18 [Rx] Allergies/Adverse Reactions: Allergy/AdvReac Type Severity Reaction Status Date / Time hydrochlorothiazide Allergy Rash Verified 06/16/17 10:47 Date of admission: 07/12/18 11:08 Primary care physician: Shy Snider Consults: 07/11/18 22:28 Consult to Nutrition [CONS] Stat Comment: Consulting Provider: NUTRITION Reason for Dietary Consult: MST Score 07/12/18 15:45 Consult to Occupational Therapy [CONS] Routine Comment: Evaluate, develop and implement POC Reason for Consult: Assess to see if needs rehab at discharge Does patient have active BEDREST order?: No Is patient medically & hemodynamically stable?: Yes Consult to Physical Therapy [CONS] Routine Comment: Evaluate, develop and implement POC Reason for Consult: Assess to see if needs rehab at discharge Does patient have active BEDREST order?: No Is patient medically & hemodynamically stable?: No 07/12/18 15:52 Consult to Nephrology [CONS] Routine Consulting Provider: Kidney Jeanne/GEORGINA/SHEREE/JANET Reason for Consult: Severe hypocalcemia, electrolyte imbalance Call Completed: Yes Anticipated date of discharge: 07/16/18 - Constitutional Vitals: Temp Pulse Resp BP Pulse Ox 98.4 F 96 19 153/68 99 07/16/18 06:55 07/16/18 06:55 07/16/18 06:55 07/16/18 06:55 07/16/18 06:55 General appearance: Present: A&O X 3, no acute distress Exam: Exam: General appearance: No acute distress, A&O X 3 Eye exam: EOMI, PERRLA ENT exam: Moist oral mucosa Neck nontender, supple Respiratory exam: Clear to auscultation bilaterally Cardiovascular exam: Regular rate and rhythm, no systolic murmur Abdominal exam: Soft, nontender, nondistended, positive bowel sounds Extremities exam: No calf tenderness, no pedal edema Present: Skin-no rash, warm, dry, intact Neurological exam: CN II-XII intact, no focal deficits. No facial droop. Normal speech. Normal gait. - Patient Status Disposition: Transfer SNF Condition: Good Overall status at discharge: patient is not back to baseline - Discharge Instructions Follow Up With: Holley Alexander DO [Primary Care Provider] - - Diet and Activity Activity: as per physical therapy Diet: advance to your usual diet
--- NOTE | 2018-07-16 10:21 | Physician Discharge Referral ---
ExtendedCare Referral Info Transfer To: SNF Provider in Charge after Transfer: PCP Institutional Level of Care: Skilled - Diagnosis (1) Hypocalcemia Priority: Primary Status: Acute (2) Exertional dyspnea Priority: Secondary Status: Resolved (3) A-fib Priority: Secondary Status: Chronic (4) Vitamin B 12 deficiency Priority: Secondary Status: Acute Prognosis: Fair Aware of Diagnosis: Patient - Transfer Medications Prescriptions: Calcium Carbonate [Tums] 1,000 mg PO BID #60 tab.chew Cyanocobalamin (B-12) [Vitamin B12] 1,000 mcg PO DAILY #60 tablet Ergocalciferol (VITAMIN D2) [Drisdol (50,000 Unit)] 50,000 unit PO QWEEK #10 capsule Rivaroxaban [Xarelto] 15 mg PO DAILY #90 tablet Home Medications: Omeprazole [PriLOSEC] 40 mg PO DAILY #30 capsule.dr 04/11/15 [Rx] Atorvastatin Calcium [Lipitor] 20 mg PO HS 07/12/16 [History] Losartan Potassium [Cozaar] 50 mg PO DAILY 06/16/17 [History] Levothyroxine Sodium 125 mcg PO DAILY 06/02/18 [History] Metoprolol Tartrate 50 mg PO BID 06/02/18 [History] Calcium Carbonate [Tums] 1,000 mg PO BID #60 tab.chew 07/16/18 [Rx] Cyanocobalamin (B-12) [Vitamin B12] 1,000 mcg PO DAILY #60 tablet 07/16/18 [Rx] Ergocalciferol (VITAMIN D2) [Drisdol (50,000 Unit)] 50,000 unit PO QWEEK #10 capsule 07/16/18 [Rx] Magnesium Oxide [Mag-Ox] 400 mg PO DAILY tablet 07/16/18 [Rx] Rivaroxaban [Xarelto] 15 mg PO DAILY #90 tablet 07/16/18 [Rx] Allergies/Adverse Reactions: Allergy/AdvReac Type Severity Reaction Status Date / Time hydrochlorothiazide Allergy Rash Verified 06/16/17 10:47 - Respiratory Orders None Smoking Cessation: Smoking cessation has been advised. For more information, call the [place] Tobacco Quit Line at 0-829-OZDU-NOW. - Advance Directives Code Status: DNR-Arrest/Don't Intubate CERTIFICATION: I certify that the transfer of the above named patient to an Extended Care Facility is necessary for the continuing treatment of the diagnosis listed. The above information is true and accurate reflection of patient's current condition. Confidential - Redisclosure prohibited without a patient's written consent.
== END 2018-07-16 11:51 | DRG 641 ==
LOC: EMEROOARM 10:26 → ICNU 10:26 → 2NENU 07-12 00:57 → SUATTDRO 07-12 11:08
PROVIDERS: ADMIT Internal Medicine; ATTEND Hospitalist